=== PATIENT | female | born 1940 | race Caucasian/White ===

== ENCOUNTER 2017-07-16 11:39 | Inpatient (IN) | payer MEDICARE, BC ==
[2017-07-16] VITALS (7 sets, daily range): BP systolic 176–193; BP diastolic 69–88; PULSE 61–86; RESP 18–21; TEMP 101; Ht 154.9 cm; Wt 69.2 kg
[~2017-07-16] VITALS: Ht 154.9 cm; Wt 69.2 kg
[2017-07-16] MEDS ORDERED: ACETAMINOPHEN 650 MG SUPP PR ONE (12:00)
[2017-07-16 12:23] LABS: BASOPHILS % 0.2 % (0.0-2.0); HEMATOCRIT 37.3 % (37.0-47.0); HEMOGLOBIN 12.5 g/dl (12.0-16.0); LYMPHOCYTES # 0.9 10^3/ul (0.8-2.9); LYMPHOCYTES % 9.6 % (15.0-51.0); MEAN CORPUSCULAR HEMOGLOBIN 30.8 pg (29.0-33.0); MEAN CORPUSCULAR HGB CONC 33.5 g/dl (32.0-37.0); MEAN CORPUSCULAR VOLUME 91.9 fl (82.0-101.0); MEAN PLATELET VOLUME 11.3 fl (7.4-10.4); MONOCYTE # 0.2 10^3/ul (0.3-0.9); MONOCYTES % 2.3 % (0.0-11.0); NEUTROPHIL # 8.3 10^3/ul (1.6-7.5); NEUTROPHILS % 87.5 % (39.0-77.0); PLATELET COUNT 218 10^3/UL (140-415); RED BLOOD COUNT 4.06 10^6/ul (4.20-5.40); RED CELL DISTRIBUTION WIDTH 12.6 % (11.5-14.5); WHITE BLOOD COUNT 9.5 10^3/ul (4.8-10.8)
[2017-07-16] MEDS ORDERED: SODIUM CHLORIDE 0.9% 1L BAG IV* STA (12:28)
[2017-07-16] MEDS ORDERED: ACETAMINOPHEN 325 MG TAB PO STA (12:28)
--- NOTE | 2017-07-16 12:33 | RADRPT ---
PROCEDURE: XR Chest. CLINICAL INDICATION: Chest pain, sepsis TECHNIQUE: A frontal view of the chest was performed. COMPARISON: None FINDINGS: The cardiomediastinal silhouette is within normal limits. Remote CABG changes are present with mild vascular congestion. No signs of pleural fluid or pneumothorax are seen. The osseous structures and soft tissues are unremarkable. IMPRESSION: Remote CABG changes and mild vascular congestion. RPTAT: QQ .Lacy Edwards MD, MD Date Time Electronically viewed and signed by .Lacy Edwards MD, on 07/16/2017 12:32 .F/
[2017-07-16 12:42] LABS: ALBUMIN 4.2 g/dl (3.3-4.9); ALBUMIN/GLOBULIN RATIO 1.23; BILIRUBIN,INDIRECT 0.9 mg/dl (0-1.1); BILIRUBIN,TOTAL 0.9 mg/dl (0.2-1.3); CALCIUM 8.8 mg/dl (8.4-10.2); CREATININE 0.96 mg/dl (0.44-1.00); POTASSIUM 4.3 mmol/L (3.5-5.1); TOTAL PROTEIN 7.6 g/dl (6.1-8.1)
[2017-07-16 12:43] LABS: INR 0.99; PROTIME 13.1 Sec (12.2-14.2)
[2017-07-16 12:44] LABS: PARTIAL THROMBOPLASTIN TIME 26.9 Sec (25.0-35.0)
[2017-07-16 12:44] LABS: UR BACTERIA FEW /HPF (NONE SEEN); UR MUCUS FEW /HPF (NONE SEEN); UR RBC 0 /HPF (0-5)
[2017-07-16 12:53] LABS: TROPONIN-I 0.019 ng/ml (0.00-0.12)
[2017-07-16 13:15] LABS: ADD UMIC YES; UR ASCORBIC ACID NEGATIVE (NEGATIVE); UR BILIRUBIN (Dip) NEGATIVE (NEGATIVE); UR BLOOD (Dip) 1+ mg/dL (NEGATIVE); UR CLARITY CLEAR (CLEAR); UR COLOR YELLOW (YELLOW); UR GLUCOSE (Dip) NEGATIVE (NEGATIVE); UR KETONES (Dip) 1+ mg/dL (NEGATIVE); UR LEUKOCYTE ESTERASE (Dip) NEGATIVE Leu/ul (NEGATIVE); UR NITRITE (Dip) NEGATIVE (NEGATIVE); UR SPECIFIC GRAVITY (Dip) 1.018 (1.003-1.030); UR TOTAL PROTEIN (Dip) 1+ mg/dl (NEGATIVE); UR UROBILINOGEN (Dip) NEGATIVE (NEGATIVE)
[2017-07-16] MEDS ORDERED: SOD CHLORIDE 0.9% 1,000 ML IV SCH (14:04)
--- NOTE | 2017-07-16 14:05 | RADRPT ---
PROCEDURE: XR Knee. CLINICAL INDICATION: Left knee pain. TECHNIQUE: AP, lateral and oblique views of the left knee were obtained. The images reviewed on a PACS workstation. COMPARISON: None. FINDINGS: Tricompartment osteoarthritis is seen which is most prominent in the patellofemoral compartment with severe degenerative changes. In addition, moderate degenerative changes in the lateral compartment is also seen. Atherosclerotic vascular disease is seen. A possible suprapatellar joint effusion may be present. No soft tissue swelling is present. IMPRESSION: 1. Tricompartment osteoarthritis of the left knee which is most prominent in the patellofemoral com partment with severe degenerative changes. 2. Possible suprapatellar joint effusion. RPTAT: HPNM Physician July Date Time Electronically viewed and signed by Physician July on 07/16/2017 14:05 /
--- NOTE | 2017-07-16 14:10 | ERA ---
ER Documentation Chief Complaint Date/Time DATE: 07/16/17 TIME: 14:05 Chief Complaint left sided weakness/blurry vision x1 day ROS All systems reviewed and are negative except as per history of present illness. PMhx/Soc History of Surgery: Yes (Aortic Valve Replacement, Cervical Fusions, R Knee Replacement) Anesthesia Reaction: No Hx Cardiac Disorders: Yes (HTN, HLD) Hx Psychiatric Problems: Yes (Alzheimer's) Hx Alcohol Use: No Hx Substance Use: No Hx Tobacco Use: No Smoking Status: Never smoker Physical Exam Vitals Vital Signs Date Time Temp Pulse Resp B/P Pulse Ox O2 Delivery O2 Flow Rate FiO2 07/16/17 13:23 101.0 83 20 150/70 95 Room Air 07/16/17 12:05 0 07/16/17 11:45 102.4 84 25 178/94 95 Physical Exam INITIAL VITAL SIGNS: Reviewed by me GENERAL: The patient is appearing elderly female, to touch HEENT: Dry mucous membranes, pupils equal, round, and reactive to light. EOMI. There is no scleral icterus. NECK: C-spine is soft and supple, there is no meningismus. There is no cervical lymphadenopathy. LUNGS: Clear to auscultation bilaterally. There are no rales, wheezes or rhonchi. HEART: Regular rate and rhythm, no murmurs, clicks, rubs or gallops. ABDOMEN: Soft, non-tender, non-distended. There are bowel sounds in all four quadrants. No rebound or guarding. EXTREMITIES: Tissue swelling of left knee NEUROLOGICAL: The patient moves all four extremities with 5/5 strength. Cranial nerves II - XII are intact. Normal gait. Alert and oriented SKIN: There is no apparent rash or petechiae. HEME/LYMPHATIC: There is no evidence of excessive bruising or lymphedema. PSYCHIATRIC: The patient does not appear anxious or depressed. Result Diagram: 07/16/17 1150 07/16/17 1150 Results 24 hrs Laboratory Tests Test 07/16/17 11:50 07/16/17 11:58 07/16/17 12:02 07/16/17 13:21 White Blood Count 9.510^3/ul Red Blood Count 4.0610^6/ul Hemoglobin 12.5g/dl Hematocrit 37.3% Mean Corpuscular Volume 91.9fl Mean Corpuscular Hemoglobin 30.8pg Mean Corpuscular Hemoglobin Concent 33.5g/dl Red Cell Distribution Width 12.6% Platelet Count 96391^3/UL Mean Platelet Volume 11.3fl Neutrophils % 87.5% Lymphocytes % 9.6% Monocytes % 2.3% Eosinophils % 0.0% Basophils % 0.2% Nucleated Red Blood Cells % 0.0/100WBC Neutrophils # 8.310^3/ul Lymphocytes # 0.910^3/ul Monocytes # 0.210^3/ul Eosinophils # 0.010^3/ul Basophils # 0.010^3/ul Nucleated Red Blood Cells # 0.010^3/ul Prothrombin Time 13.1Sec Prothrombin Time Ratio 1.0 INR International Normalized Ratio 0.99 Activated Partial Thromboplast Time 26.9Sec Sodium Level 136mmol/L Potassium Level 4.3mmol/L Chloride Level 103mmol/L Carbon Dioxide Level 24mmol/L Anion Gap 13 Blood Urea Nitrogen 16mg/dl Creatinine 0.96mg/dl Glucose Level 138mg/dl Calcium Level 8.8mg/dl Total Bilirubin 0.9mg/dl Direct Bilirubin 0.00mg/dl Indirect Bilirubin 0.9mg/dl Aspartate Amino Transf (AST/SGOT) 25IU/L Alanine Aminotransferase (ALT/SGPT) 24IU/L Alkaline Phosphatase 95IU/L Troponin I 0.019ng/ml Total Protein 7.6g/dl Albumin 4.2g/dl Globulin 3.40g/dl Albumin/Globulin Ratio 1.23 Urine Color YELLOW Urine Clarity CLEAR Urine pH 5.0 Urine Specific [place] 1.018 Urine Ketones 1+mg/dL Urine Nitrite NEGATIVEmg/dL Urine Bilirubin NEGATIVEmg/dL Urine Urobilinogen NEGATIVEmg/dL Urine Leukocyte Esterase NEGATIVELeu/ul Urine Microscopic RBC 0/HPF Urine Microscopic WBC 0/HPF Urine Bacteria FEW/HPF Urine Mucus FEW/HPF Urine Hemoglobin 1+mg/dL Urine Glucose NEGATIVEmg/dL Urine Total Protein 1+mg/dl Lactic Acid Level 1.4mmol/L C-Reactive Protein < 0.5mg/dl Current Medications Medications (Trade) Dose Ordered Sig/Luciano Route PRN Reason Start Time Stop Time Status Last Admin Dose Admin Acetaminophen (Tylenol Supp) 650 mg ONCE ONCE LA 07/16/17 12:00 07/16/17 12:29 DC Sodium Chloride (NS) 2,000 ml BOLUS OVER 2 HOURS STAT IV* 07/16/17 12:28 07/16/17 12:29 DC 07/16/17 12:38 Acetaminophen (Tylenol Tab) 650 mg ONCE STAT PO 07/16/17 12:28 07/16/17 12:29 DC 07/16/17 12:31 Procedures/MDM EKG: Rate/Rhythm: [Normal Sinus Rhythm] QRS, ST, T-waves: [No changes consistent w/ acute ischemia] Impression: [No evidence of ischemia or arrhythmia] Chest X-ray 1V Interpreted by me: Soft Tissue: No acute abnormalities Bones: No acute abnormalities Mediastinum/Cardiac Silhouette/Lungs: [No acute abnormalities] CT brain without: Pending at this time This is a 76-year-old female who presents to the emergency room for evaluation of generalized weakness and blurred vision and fever. This patient had no focal neurological deficits on my examination, she was febrile however she was not tachycardic. I did start a septic workup on this patient. Her workup has come back negative. Her CRP and ESR are also negative. I did obtain imaging of the left knee because she has some soft tissue swelling and there does not appear to be any underlying osteomyelitis. There is no effusion around the knee which needs to be drained at this time. The patient was given greater than 30 cc/kg of IV normal saline. She is feeling better however continues to complain of weakness. Given her age and presenting symptoms this patient will be placed in for gentle hydration, and reevaluation in the morning. She will be admitted to her panel physician Dr. parrish. The patient has a negative influenza at this time Departure Diagnosis: Primary Impression: Generalized weakness Additional Impression: Fever Condition: Stable KARLA CHRISTIE DO Jul 16, 2017 14:10
[2017-07-16] MEDS ORDERED: ONDANSETRON 4 MG INJ IV PRN (14:30)
[2017-07-16] MEDS ORDERED: ACETAMINOPHEN 325 MG TAB PO PRN (14:30)
--- NOTE | 2017-07-16 14:53 | RADRPT ---
PROCEDURE: CT brain without contrast CLINICAL INDICATION: Weakness TECHNIQUE: CT of the brain without contrast performed on a multidetector CT scanner, with multiplan ar reformats. One or more of the following dose reduction techniques were used: Automated exposure control, adjustment in mA and / or kV according to patient size, use of iterative reconstructive mushtaq hnique. CTDIvol = 44 mGy; DLP = 630 mGy-cm. COMPARISON: None available FINDINGS: No acute intracranial hemorrhage is identified. No extra-axial fluid collection is seen. There is no mass effect. No midline shift is identified. The ventricles and sulci are mild - moderately enlarged compatible with volume loss. There are mild to moderate areas of hypodensity in the periventricular - deep white matter which are nonspecific but suggestive of chronic small vessel ischemic changes. Ng-white differentiation ap pears preserved. Atherosclerotic calcifications of the intracranial internal carotid arteries are noted. Calvarium and skull base are intact. Mastoid air cells and imaged paranasal sinuses grossly clear. IMPRESSION: 1. No evidence of acute intracranial pathology. 2. Mild - moderate volume loss and chronic small vessel ischemic changes. RPTAT: VV .Tra Camp MD, MD Date Time Electronically viewed and signed by .Tar Camp MD, MD on 07/16/2017 14:52 .O/
[2017-07-16] MEDS ORDERED: ESCI10TA PO (16:04)
[2017-07-16] MEDS ORDERED: DONE10TA7 PO (16:04)
[2017-07-16] MEDS ORDERED: PITA2TAB PO (16:05)
[2017-07-16] MEDS ORDERED: METO-448 PO (16:05)
--- NOTE | 2017-07-16 16:11 | HP ---
Date/Time of Note Date/Time of Note DATE: 07/16/17 TIME: 16:08 Assessment/Plan VTE Prophylaxis VTE Prophylaxis Intervention: SCD's Assessment/Plan Assessment/Plan 76 yo F with pmhx dementia, HTN, HL, depression here with fever and rigors concerning for possible infectious source, though none has yet been elucidated given combination of headache, AMS and fever, cannot exclude prospect of bacterial meningitis start empiric abx with ceftriaxone, vanc, ampicillin given age and dex. LP ordered cont home meds full RVP ordered for non flu respiratory infections if above nondiagnostic consider further w/u HPI/ROS Admit Date/Time Admit Date/Time Jul 16, 2017 at 14:04 Hx of Present Illness CC weakness, fatigue HPI (of note, pt sleeping very soundly at time of my clinical evaluation thus she was unable to participate in clinical interview. unable to obtain pmhx, pshx, soc hx, fam hx, ROS, allergies from patient) 76 yo F with pmhx HTN, HL, depression, dementia brought in for weakness, fatigue. Found to be febrile in the ER. No localization of symptomatology per ER documentation One of pt's caregiver presented this afternoon and was able to provide additional info. Pt at baseline is alert, able to walk and stand unassisted. Yesterday had a headache. She was taken to [facility], had CT and urine and blood tests done. Pt and caregiver told all of these were normal and patient was sent home. Today pt was noted to be confused, diffusely weak and fatigued which is why family brought her in. No focal weakness. +L knee swelling. Pt denies headache at this time. Home meds: metoprolol, Livalo, Donepezil, Lexapro PMH/Family/Social Social History Smoking Status: Never smoker Exam/Review of Systems Vital Signs Vitals Vital Signs Date Time Temp Pulse Resp B/P Pulse Ox O2 Delivery O2 Flow Rate FiO2 07/16/17 13:23 101.0 83 20 150/70 95 Room Air 07/16/17 12:05 0 Exam Exam nad, laying flat and snoring intermittently. awakens to loud verbal stimuli. denies headache. able to touch chin to chest. +intermittent rigors no gross thyromegaly lungs clear abd soft, ntnd mild L knee fullness, no erythema no suprapubic discomfort to palpation no rashes no edema labs reviewed. WBCs nl, Cr nl, lactate nl, flu swab neg, urine without LE or nitrites, CT head nl, L knee XR with possible joint effusion Labs Result Diagram: 07/16/17 1150 07/16/17 1150 Medications Medications Current Medications Sodium Chloride (NS) 1,000 ml @ 80 mls/hr [id number] IV ; Start 07/16/17 at 14:04 ; Stop 07/17/17 at 02:33 Donepezil HCl (Aricept) 10 mg DAILY PO ; Start 07/17/17 at 09:00; Status UNV Escitalopram Oxalate (Lexapro) 10 mg DAILY PO ; Start 07/17/17 at 09:00; Status UNV Metoprolol Tartrate (Lopressor) 25 mg BID PO ; Start 07/16/17 at 21:00; Status UNV Miscellaneous Information 2 mg DAILY PO ; Start 07/17/17 at 09:00; Status GAYE PUCKETT MD Jul 16, 2017 16:11 Medications Medications Current Medications Sodium Chloride (NS) 1,000 ml @ 80 mls/hr [id number] IV ; Start 07/16/17 at 14:04 ; Stop 07/17/17 at 02:33 Donepezil HCl (Aricept) 10 mg DAILY PO ; Start 07/17/17 at 09:00; Status UNV Escitalopram Oxalate (Lexapro) 10 mg DAILY PO ; Start 07/17/17 at 09:00; Status UNV Metoprolol Tartrate (Lopressor) 25 mg BID PO ; Start 07/16/17 at 21:00; Status UNV Miscellaneous Information 2 mg DAILY PO ; Start 07/17/17 at 09:00; Status GAYE PUCKETT MD Jul 16, 2017 16:11
[2017-07-16] MEDS ORDERED: HYDROCODONE/APAP (5/325) TAB PO PRN (16:30)
[2017-07-16] MEDS ORDERED: NACL 0.9% 3 ML SYG IV SCH (16:30)
[2017-07-16] MEDS ORDERED: VANCOMYCIN IV PER PHARMACY XX SCH (17:00)
[2017-07-16] MEDS ORDERED: CEFTRIAXONE 2 GM/50 ML (PMX) 50 ML IVPB SCH ×2 (18:00→20:00)
[2017-07-16] MEDS ORDERED: DEXAMETHASONE 4 MG/ML 5 ML INJ IV SCH (18:00)
[2017-07-16] MEDS ORDERED: VANCOMYCIN 1.5 GM in SOD CHLORIDE 0.9% 250 ML IVPB SCH (20:30)
[2017-07-16] MEDS: AMPICILLIN 2 GM/NS (PMX) 100 ML IVPB SCH (21:19)
[2017-07-16] MEDS: ATORVASTATIN 10 MG TAB PO SCH (21:19)
[2017-07-16] MEDS: METOPROLOL 25 MG TAB PO SCH (21:19)
[2017-07-16] MEDS: ACETAMINOPHEN 325 MG TAB PO PRN (21:37)
[2017-07-16] MEDS: CEFTRIAXONE 2 GM/50 ML (PMX) 50 ML IVPB SCH (22:38)
[2017-07-17] VITALS (15 sets, daily range): BP systolic 124–189; BP diastolic 48–85; PULSE 48–71; RESP 16–20
[2017-07-17] MEDS: AMPICILLIN 2 GM/NS (PMX) 100 ML IVPB SCH ×4 (03:00→17:55)
[2017-07-17] MEDS: ACETAMINOPHEN 325 MG TAB PO PRN ×2 (05:44→10:27)
[2017-07-17 06:13] LABS: BASOPHILS % 0.2 % (0.0-2.0); EOSINOPHILS % 0.1 % (0.0-7.0); HEMATOCRIT 32.1 % (37.0-47.0); HEMOGLOBIN 10.6 g/dl (12.0-16.0); LYMPHOCYTES # 1.6 10^3/ul (0.8-2.9); LYMPHOCYTES % 16.4 % (15.0-51.0); MEAN CORPUSCULAR HEMOGLOBIN 30.1 pg (29.0-33.0); MEAN CORPUSCULAR VOLUME 91.2 fl (82.0-101.0); MEAN PLATELET VOLUME 11.3 fl (7.4-10.4); MONOCYTE # 0.8 10^3/ul (0.3-0.9); MONOCYTES % 8.2 % (0.0-11.0); NEUTROPHIL # 7.4 10^3/ul (1.6-7.5); NEUTROPHILS % 74.8 % (39.0-77.0); PLATELET COUNT 169 10^3/UL (140-415); RED BLOOD COUNT 3.52 10^6/ul (4.20-5.40); RED CELL DISTRIBUTION WIDTH 12.8 % (11.5-14.5); WHITE BLOOD COUNT 9.8 10^3/ul (4.8-10.8)
[2017-07-17 07:11] LABS: CALCIUM 7.5 mg/dl (8.4-10.2); CREATININE 0.81 mg/dl (0.44-1.00); POTASSIUM 3.6 mmol/L (3.5-5.1)
[2017-07-17] MEDS ORDERED: ENOXAPARIN 40 MG/0.4 ML SYG SC SCH (09:00)
[2017-07-17] MEDS: METOPROLOL 25 MG TAB PO SCH ×3 (09:00→21:01)
[2017-07-17] MEDS: ESCITALOPRAM 10 MG TAB PO SCH (09:21)
[2017-07-17] MEDS: DONEPEZIL 10 MG TAB PO SCH (09:21)
[2017-07-17] MEDS: hydrALAzine 20 MG INJ IV PRN (09:21)
[2017-07-17] MEDS: CEFTRIAXONE 2 GM/50 ML (PMX) 50 ML IVPB SCH ×2 (09:22→20:54)
--- NOTE | 2017-07-17 16:37 | PN ---
Date/Time of Note Date/Time of Note DATE: 07/17/17 TIME: 16:35 Assessment/Plan VTE Prophylaxis VTE Prophylaxis Intervention: SCD's Lines/Catheters IV Catheter Type (from Nrsg): Peripheral IV Urinary Cath still in place: No Assessment/Plan Assessment/Plan Assessment/Plan 76 yo F with pmhx dementia, HTN, HL, depression here with fever and rigors concerning for possible infectious source, though none has yet been elucidated given combination of headache, AMS and fever, cannot exclude prospect of bacterial meningitis -cont empiric abx with ceftriaxone, vanc, ampicillin given age and dex. -LP ordered CT to eval for infectious process in pt's back given hardware hx if negative will do CT AP in AM to start FUO eval cont home meds full RVP ordered for non flu respiratory infections Subjective 24 Hr Interval Summary Free Text/Dictation Pt more awake today than when I saw her yesterday but with delirium evidence by waxing/waning of mental status. Talked to DIAZ (former student of patient) who affirms what caregiver said yesterday that pt able to ambulate and is lucid at baseline Exam/Review of Systems Vital Signs Vitals Vital Signs Date Time Temp Pulse Resp B/P Pulse Ox O2 Delivery O2 Flow Rate FiO2 07/17/17 15:36 100.7 55 18 189/74 94 07/16/17 18:20 Room Air 07/16/17 12:05 0 Intake and Output 07/16/17 07/16/17 07/17/17 15:00 23:00 07:00 Intake Total 600 ml Balance 600 ml Exam laying in bed no mrg lungs clear abd soft no rashes labs reviewed, LP pending. cultures neg so far Results Result Diagram: 07/17/17 0537 07/17/17 0537 Results 24 hrs Laboratory Tests Test 07/17/17 05:37 White Blood Count 9.8 Red Blood Count 3.52 L Hemoglobin 10.6 L Hematocrit 32.1 L Mean Corpuscular Volume 91.2 Mean Corpuscular Hemoglobin 30.1 Mean Corpuscular Hemoglobin Concent 33.0 Red Cell Distribution Width 12.8 Platelet Count 169 # Mean Platelet Volume 11.3 H Neutrophils % 74.8 Lymphocytes % 16.4 Monocytes % 8.2 Eosinophils % 0.1 Basophils % 0.2 Nucleated Red Blood Cells % 0.0 Neutrophils # 7.4 Lymphocytes # 1.6 Monocytes # 0.8 Eosinophils # 0.0 Basophils # 0.0 Nucleated Red Blood Cells # 0.0 Sodium Level 137 Potassium Level 3.6 Chloride Level 109 Carbon Dioxide Level 22 Anion Gap 10 Blood Urea Nitrogen 15 Creatinine 0.81 Glucose Level 97 # Calcium Level 7.5 L Medications Medications Current Medications Donepezil HCl (Aricept) 10 mg DAILY PO Last administered on 07/17/17 09:21; Admin Dose 10 MG; Start 07/17/17 at 09:00 Escitalopram Oxalate (Lexapro) 10 mg DAILY PO Last administered on 07/17/17 09 :21; Admin Dose 10 MG; Start 07/17/17 at 09:00 Metoprolol Tartrate (Lopressor) 25 mg BID PO Last administered on 07/17/17 15: 28; Admin Dose 25 MG; Start 07/16/17 at 21:00 Atorvastatin Calcium (Lipitor) 10 mg DAILY@21 PO Last administered on 21:19; Admin Dose 10 MG; Start 07/16/17 at 21:00 Acetaminophen (Tylenol Tab) 650 mg Q6H PRN PO PAIN LEVEL 1-3 OR FEVER Last administered on 07/17/17 10:27; Admin Dose 650 MG; Start 07/16/17 at 16:30 Acetaminophen/ Hydrocodone Bitart 1 tab 1 tab Q6H PRN PO MODERATE PAIN LEVEL 4- 6 Last administered on 07/16/17 22:39; Admin Dose 1 TAB; Start 07/16/17 at 16: 30 Ampicillin 100 ml @ 100 mls/hr Q6 IVPB Last administered on 07/17/17 14:01; Admin Dose 100 MLS/HR; Start 07/16/17 at 18:30 Ceftriaxone Sodium (Rocephin) 50 ml @ 100 mls/hr Q12H IVPB Last administered on 07/17/17 09:22; Admin Dose 100 MLS/HR; Start 07/16/17 at 20:00 Hydralazine HCl 20 mg 20 mg Q6H PRN IV ELEVATED BLOOD PRESSURE Last administered on 07/17/17 09:21; Admin Dose 20 MG; Start 07/16/17 at 22:00 Vancomycin HCl (Vancocin) 250 ml @ 125 mls/hr Q24H IVPB ; Start 10/6/17 at 23: 00 GAYE REEVES MD Jul 17, 2017 16:37
[2017-07-17] MEDS ORDERED: ACETAMINOPHEN 650 MG SUPP PR PRN (17:30)
[2017-07-17] MEDS ORDERED: VANCOMYCIN 1 GM in NS 250 ML IVPB SCH (20:30)
[2017-07-17] MEDS: ATORVASTATIN 10 MG TAB PO SCH (20:54)
[2017-07-17] MEDS: SOD CHLORIDE 0.9% 1,000 ML IV SCH (20:54)
[2017-07-17] MEDS ORDERED: IOHEXOL 300MG/ML 150 ML BTL ONE (22:03)
[2017-07-17] MEDS ORDERED: SOD CHLORIDE 0.9% 100 ML ONE (22:03)
[2017-07-17] MEDS ORDERED: IOHEXOL 300MG/ML 30 ML BTL ONE (22:41)
[2017-07-17] MEDS: VANCOMYCIN 1 GM in NS 250 ML IVPB SCH (23:39)
[2017-07-18] VITALS (12 sets, daily range): BP systolic 153–209; BP diastolic 59–82; PULSE 40–89; RESP 16–22
[2017-07-18] MEDS: hydrALAzine 20 MG INJ IV PRN (01:13)
[2017-07-18] MEDS: AMPICILLIN 2 GM/NS (PMX) 100 ML IVPB SCH ×5 (01:13→23:57)
[2017-07-18] MEDS: ACETAMINOPHEN 325 MG TAB PO PRN (05:16)
[2017-07-18] MEDS: SOD CHLORIDE 0.9% 1,000 ML IV SCH ×2 (08:28→20:36)
[2017-07-18 08:42] LABS: BASOPHILS % 0.2 % (0.0-2.0); HEMATOCRIT 33.8 % (37.0-47.0); HEMOGLOBIN 11.4 g/dl (12.0-16.0); LYMPHOCYTES # 0.8 10^3/ul (0.8-2.9); LYMPHOCYTES % 6.3 % (15.0-51.0); MEAN CORPUSCULAR HEMOGLOBIN 29.9 pg (29.0-33.0); MEAN CORPUSCULAR HGB CONC 33.7 g/dl (32.0-37.0); MEAN CORPUSCULAR VOLUME 88.7 fl (82.0-101.0); MEAN PLATELET VOLUME 12.2 fl (7.4-10.4); MONOCYTE # 0.7 10^3/ul (0.3-0.9); MONOCYTES % 5.2 % (0.0-11.0); NEUTROPHIL # 11.5 10^3/ul (1.6-7.5); NEUTROPHILS % 87.6 % (39.0-77.0); PLATELET COUNT 193 10^3/UL (140-415); RED BLOOD COUNT 3.81 10^6/ul (4.20-5.40); RED CELL DISTRIBUTION WIDTH 12.9 % (11.5-14.5); WHITE BLOOD COUNT 13.1 10^3/ul (4.8-10.8)
[2017-07-18] MEDS: METOPROLOL 25 MG TAB PO SCH ×2 (08:45→20:35)
[2017-07-18] MEDS: DONEPEZIL 10 MG TAB PO SCH (08:45)
[2017-07-18] MEDS: ESCITALOPRAM 10 MG TAB PO SCH (08:45)
[2017-07-18 08:59] LABS: CALCIUM 7.9 mg/dl (8.4-10.2); CREATININE 0.83 mg/dl (0.44-1.00); POTASSIUM 3.3 mmol/L (3.5-5.1)
[2017-07-18] MEDS ORDERED: INFLUENZA VIRUS VACCINE 0.5 ML SYG IM* ONE (09:00)
[2017-07-18] MEDS: CEFTRIAXONE 2 GM/50 ML (PMX) 50 ML IVPB SCH ×2 (12:13→20:34)
--- NOTE | 2017-07-18 13:46 | RADRPT ---
PROCEDURE: CT Brain without contrast. CLINICAL INDICATION: Altered level of consciousness, evaluate for abscess. TECHNIQUE: A CT of the brain was performed on a GE MC10peed 64-slice CT scanner utilizing axial imaging from the skull base through the vertex with and without IV contrast. 100 cc of Omnipaque-30 0 were given intravenously without complication. Multiplanar reformatted images were made. One or mo re the following dose reduction techniques were utilized: Automated exposure control, adjustment of the mA/ or kV according to patient's size, or use of iterative reconstruction technique. The CTDIvo l is 45, 45, and 45 mGy and the DLP is 2160.7 mGycm. COMPARISON: CT BRAIN 07/16/2017 FINDINGS: There is no intracranial hemorrhage, mass effect, or midline shift. No extra-axial fluid collection is seen. Mild to moderate atrophy is identified with compensatory ventricular and sulcal enlargeme nt. Mild to moderate decreased attenuation is seen in the periventricular and deep white matter, co mpatible with microvascular ischemic disease. The allen white matter differentiation is well preserve d with no acute infarct detected. The postcontrast images show no abnormal parenchymal, leptomening eal, or dural enhancement. The osseous structures and visualized paranasal sinuses are unremarkable. IMPRESSION: 1. No evidence of acute intracranial pathology. 2. Mild to moderate diffuse atrophy. 3. There is mild to moderate microvascular ischemic disease in the periventricular and deep white m atter. RPTAT: HJAH .Vale Hay MD, MD Date Time Electronically viewed and signed by .Vale Hay MD, MD on 07/18/2017 13:45 .H/
--- NOTE | 2017-07-18 13:57 | RADRPT ---
PROCEDURE: CT Cervical Spine without contrast. CLINICAL INDICATION: Neck pain, fever, evaluate for abscess. TECHNIQUE: A CT of the cervical spine was performed on a GE [employer] 64-slice CT scanner uti lizing thin section axial images from the skull base through the thoracic inlet. Sagittal and coron al reformatted images were made. One or more the following dose reduction techniques were utilized: Automated exposure control, adjustment of the mA/ or kV according to patient's size, or use of iter ative reconstruction technique. The CTDIvol is 34.6 mGy and the DLP is 885.8 mGycm. COMPARISON: No prior studies are available for comparison. FINDINGS: There is straightening of the normal lordosis of the cervical spine. Mild anterolisthesis is evident at C7-T1. No acute fractures seen. No erosive changes are seen to suggest osteomyelitis. Moderate d egenerative changes are seen at the C1-2 level with pannus formation and borderline central stenosis with the AP diameter measuring approximately 10 mm. C2-3: The disc is normal in height. A broad-based posterior osteophyte/disc complex together with li gamentum flavum hypertrophy results in moderate central stenosis with the AP diameter of the canal m easuring just over 7 mm. Facet arthropathy and uncovertebral osteophytes results in mild right great er than left foraminal narrowing. C3-4-5-6: The patient is noted to be status post partial corpectomies of C4, C5, and C6 with a large interbody strut graft spanning from the inferior endplate of C3 to the superior endplate of C7. The re is mineralization within the strut graft with probable solid fusion. There is solid interbody fus ion of C3-C6 along the right aspect of the vertebral bodies. There is mild central stenosis at these levels, most pronounced at C4-5 and C5-6. There is moderate central stenosis at C6-7 secondary to a broad-based posterior osteophyte. The AP diameter measures approximately 7 mm. Multilevel foraminal narrowing is seen at this level, moderately severe at C3-4 and C4-5, moderate at C5-6, and moderate - severe at C6-7. There is an anterior fixation plate spanning C3-C7 with anterior fixation screws at C3 and C7. There appear to be focal areas of at least spot welding and probable solid fusion at C 3-4 and C6-7. C7-T1: Mild disc space narrowing. An osteophyte/disc complex is present without central stenosis. Fa cet arthropathy results in mild right foraminal narrowing. The left foramen is adequately patent. IMPRESSION: 1. No evidence of osteomyelitis or gross evidence of a spinal abscess on these noncontrast CT image s. Please note that the cord and epidural spaces are suboptimally evaluated. 2. Status post corpectomy from C4-C6 with anterior fusion from C3-C7 as described in detail above. There does appear to be solid fusion at these levels. 3. There is moderate acquired central canal stenosis at C2-3 and C6-7. 4. Multilevel foraminal stenosis as outlined in detail above. RPTAT: HJAH .Vale Hay MD, Date Time Electronically viewed and signed by .Vale Hay MD, on 07/18/2017 13:56 .H/
--- NOTE | 2017-07-18 14:12 | RADRPT ---
PROCEDURE: CT L-Spine. CLINICAL INDICATION: Low back pain, surgery, evaluate for abscess. TECHNIQUE: A CT of the lumbar spine was performed on a GE 64-slice CT scanner utilizing high-resol ution thin section axial images from the thoracic lumbar junction through the lumbar sacral junction . One or more the following dose reduction techniques were utilized: Automated exposure control, a djustment of the mA/ or kV according to patient's size, or use of iterative reconstruction technique . Sagittal and coronal and multiplanar reformatted images were made. The CTDIvol is 31.8 mGy and th e DLP is 903.6 mGycm. COMPARISON: None. FINDINGS: There is a normal lordosis of the lumbar spine. Mild anterolisthesis of L5 on S1 is evident secondar y to facet arthropathy. No fractures are evident. The paraspinal soft tissues are notable for fatty atrophy of the musculature with no fluid collections are seen. There are small bilateral pleural eff usions. Sludge/small stones are seen within the gallbladder. Vascular calcifications are evident. A small amount of free fluid is seen in the upper pelvis. T12-L1: There is severe disc space narrowing with interbody fusion. Prominent enthesopathy is eviden t. A broad-based calcified disc protrusion is present, though the central canal remains adequately p atent. Mild to moderate right foraminal narrowing is evident. L1-2: Severe disc space narrowing is seen with vacuum disc phenomena and endplate irregularity. Prom inent enthesopathy is seen anteriorly. A broad-based calcified disc protrusion together with facet a rthropathy and ligamentum flavum hypertrophy results in moderate central stenosis with the AP diamet er measuring approximately 8 mm. Moderate bilateral foraminal narrowing is evident. L2-3: Severe disc space narrowing is seen with vacuum disc phenomenon. Prominent enthesopathy is not ed. There is a broad-based partially calcified disc protrusion, which together with facet arthropath y and ligamentum flavum hypertrophy results in moderate central stenosis with the AP and transverse diameter of the canal measuring just below 8 mm. Moderate bilateral foraminal narrowing is seen. L3-4: Severe disc space narrowing is noted along the left lateral disc space are prominent enthesopa thy is noted. A partially calcified disc protrusion together with facet arthropathy and ligamentum f lavum hypertrophy results in mild to moderate central stenosis with the AP and transverse diameter c anal measuring approximately 9 mm. Moderate right and severe left foraminal narrowing is evident. Im pingement of the exiting left L3 nerve root is suspected. L4-5: Severe disc space narrowing is evident with vacuum disc phenomena and endplate sclerosis. Enth esopathy is seen. There is a broad-based posterior osteophyte/disc complex, which together with face t arthropathy and ligamentum flavum hypertrophy results in moderate acquired central canal stenosis with the AP and transverse diameter canal measuring just below 8 mm. Moderately severe bilateral for aminal narrowing is evident, left worse than right. L5-S1: Moderate disc space narrowing and vacuum disc phenomena is seen. Diffuse bulging of the poste rior annulus together with facet arthropathy and ligamentum flavum hypertrophy results in mild to mo derate central stenosis with the AP diameter of the canal measuring just under 9 mm. There is severe bilateral foraminal stenosis with suspected impingement of the exiting L5 nerve roots. IMPRESSION: 1. There is evidence of multilevel severe discogenic disease. Solid interbody fusion is seen at T12 -L1. 2. There is moderate acquired central canal stenosis at L1-2, L2-3 and L4-5. 3. There is mild to moderate central canal stenosis at L3-4 and L5-S1. 4. There is multilevel foraminal stenosis, most pronounced at L3-4 on the left, bilaterally at L4-5 and L5-S1, where impingement of the exiting nerve roots is suspected. 5. There is no gross evidence of osteomyelitis. No soft tissue paraspinal abscess is seen. RPTAT: HJAH .Vale Hay MD, Date Time Electronically viewed and signed by .Vale Hay MD, MD on 07/18/2017 14:11 .H/
--- NOTE | 2017-07-18 14:19 | RADRPT ---
PROCEDURE: CT thoracic spine CLINICAL INDICATION: Back pain, sepsis, evaluate for abscess. TECHNIQUE: A CT of the thoracic spine was performed on a GE [address] scanner utilizing high-res olution axial imaging from the cervical thoracic junction through the thoracolumbar junction. Sagit caren, coronal, and multiplanar reformatted images were made. One or more the following does reduction techniques were utilized: Automated exposure control, adjustment of the mA/ or kV according to pat ient's size, or use of iterative reconstruction technique. The CTDIvol is 28.4 mGy and the DLP is 9 75.0 mGycm. COMPARISON: None. FINDINGS: There is increased kyphosis due primarily to multilevel anterior disc space narrowing. Trace codey listhesis of T4 on T5, T5 on T6, and T 03/1997 is noted. Minimal chronic compression of T4 and T5 i s evident. No acute vertebral body fractures evident. The paraspinal soft tissues are grossly unrem arkable with no evidence of a fluid collection. Small bilateral pleural effusions are identified wit h associated atelectasis. There is an aortic valve. Multilevel degenerative enthesopathy is seen in the anterolateral regions, from T3-4 down to T12-L1. Multilevel mild to severe disc space narrowing is evident and most pronounced from T1-2 to T4-5, T7 -8, and T10-11 through T12-L1. At T10-11, T11-12, and T12-L1, there are largely calcified disc bulges/protrusions, though the centr al canal remains adequately patent at these levels. The central canal is adequately patent at all re maining thoracic levels. There is evidence of multilevel moderate foraminal narrowing from T1-2 down to T3-4. Multilevel mild foraminal narrowing is seen in the mid and lower thoracic levels. IMPRESSION: 1. No evidence of osteomyelitis or paraspinal fluid collection on this noncontrast study. There is, however, evidence of small bilateral pleural effusions. 2. Multilevel discogenic disease, most pronounced in the upper and lower thoracic regions with prom inent enthesopathy. 3. No evidence of central stenosis at any thoracic level. There is multilevel foraminal narrowing a s outlined above. RPTAT: HJAH .Vale Hay MD, MD Date Time Electronically viewed and signed by .Vale Hay MD, MD on 07/18/2017 14:19 .H/
--- NOTE | 2017-07-18 16:38 | PN ---
Date/Time of Note Date/Time of Note DATE: 07/18/17 TIME: 16:29 Assessment/Plan VTE Prophylaxis VTE Prophylaxis Intervention: SCD's Lines/Catheters IV Catheter Type (from Nrsg): Peripheral IV Urinary Cath still in place: Yes Reason Cath still needed: skin wounds contaminated by urine Assessment/Plan Assessment/Plan 76 yo F with pmhx dementia, HTN, HL, depression here with fever, rigors, acute toxic/metabolic encephalopathy concerning for possible infectious source, though none has yet been elucidated given combination of headache, AMS and fever, cannot exclude prospect of bacterial meningitis -cont empiric abx with ceftriaxone, vanc, ampicillin given age and dex. -LP could not be done CT AP with contrast ordered ID consulted for FUO w/u assistance. consider viral process, possible encephalitis but unable to get CSF as noted above. Given IV acyclovir can be so nephrotoxic, would like to have ID eval before starting it check HIV and CMV, EBV serologies repeat blood cultures check peripheral smear Subjective 24 Hr Interval Summary Free Text/Dictation Pt still febrile though less so and mentation not significantly improved. Pt unable to hold sufficiently still for LP. Exam/Review of Systems Vital Signs Vitals Vital Signs Date Time Temp Pulse Resp B/P Pulse Ox O2 Delivery O2 Flow Rate FiO2 07/18/17 15:45 98.9 56 18 186/72 93 07/16/17 18:20 Room Air 07/16/17 12:05 0 Intake and Output 07/17/17 07/17/17 07/18/17 15:00 23:00 07:00 Intake Total 250 ml 2210 ml 1190 ml Output Total 150 ml 550 ml Balance 250 ml 2060 ml 640 ml Exam sitting up in bed, mumbling no mrg lungs clear abd soft no edema or rashes spinal CT results reviewed Results Result Diagram: 07/18/1771307/18/17713 Results 24 hrs Laboratory Tests Test 07/18/17 07:14 White Blood Count 13.1 #H Red Blood Count 3.81 L Hemoglobin 11.4 L Hematocrit 33.8 L Mean Corpuscular Volume 88.7 Mean Corpuscular Hemoglobin 29.9 Mean Corpuscular Hemoglobin Concent 33.7 Red Cell Distribution Width 12.9 Platelet Count 193 Mean Platelet Volume 12.2 H Neutrophils % 87.6 H Lymphocytes % 6.3 L Monocytes % 5.2 Eosinophils % 0.0 Basophils % 0.2 Nucleated Red Blood Cells % 0.0 Neutrophils # 11.5 H Lymphocytes # 0.8 Monocytes # 0.7 Eosinophils # 0.0 Basophils # 0.0 Nucleated Red Blood Cells # 0.0 Sodium Level 138 Potassium Level 3.3 L Chloride Level 108 Carbon Dioxide Level 20 L Anion Gap 13 Blood Urea Nitrogen 14 Creatinine 0.83 Glucose Level 102 Calcium Level 7.9 L Medications Medications Current Medications Donepezil HCl (Aricept) 10 mg DAILY PO Last administered on 07/18/17 08:45; Admin Dose 10 MG; Start 07/17/17 at 09:00 Escitalopram Oxalate (Lexapro) 10 mg DAILY PO Last administered on 07/18/17 08 :45; Admin Dose 10 MG; Start 07/17/17 at 09:00 Metoprolol Tartrate (Lopressor) 25 mg BID PO Last administered on 07/18/17 08: 45; Admin Dose 25 MG; Start 07/16/17 at 21:00 Atorvastatin Calcium (Lipitor) 10 mg DAILY@21 PO Last administered on 20:54; Admin Dose 10 MG; Start 07/16/17 at 21:00 Acetaminophen (Tylenol Tab) 650 mg Q6H PRN PO PAIN LEVEL 1-3 OR FEVER Last administered on 07/18/17 05:16; Admin Dose 650 MG; Start 07/16/17 at 16:30 Acetaminophen/ Hydrocodone Bitart 1 tab 1 tab Q6H PRN PO MODERATE PAIN LEVEL 4- 6 Last administered on 07/16/17 22:39; Admin Dose 1 TAB; Start 07/16/17 at 16: 30 Ampicillin 100 ml @ 100 mls/hr Q6 IVPB Last administered on 07/18/17 13:16; Admin Dose 100 MLS/HR; Start 07/16/17 at 18:30 Ceftriaxone Sodium (Rocephin) 50 ml @ 100 mls/hr Q12H IVPB Last administered on 07/18/17 12:13; Admin Dose 100 MLS/HR; Start 07/16/17 at 20:00 Hydralazine HCl 20 mg 20 mg Q6H PRN IV ELEVATED BLOOD PRESSURE Last administered on 07/18/17 01:13; Admin Dose 20 MG; Start 07/16/17 at 22:00 Vancomycin HCl (Vancocin) 250 ml @ 125 mls/hr Q24H IVPB Last administered on 07/17/17 23:39; Admin Dose 125 MLS/HR; Start 07/17/17 at 23:00 Acetaminophen 650 mg 650 mg Q6H PRN CO elevated temp Last administered on 17:56; Admin Dose 650 MG; Start 07/17/17 at 17:30 Sodium Chloride (NS) 1,000 ml @ 80 mls/hr [id number] IV Last administered on 07/17 20:54; Admin Dose 80 MLS/HR; Start 07/17/17 at 20:00 GAYE REEVES MD Jul 18, 2017 16:38
--- NOTE | 2017-07-18 16:43 | RADRPT ---
PROCEDURE: Fluoroscopic guided lumbar puncture. CLINICAL INDICATION: fever and headache. TECHNIQUE: Prior to the procedure, informed consent was obtained. Risks including bleeding and in fection were explained to the patient. The patient understood and was willing to proceed. A proced ural pause was performed. The patient's name, date of , and procedure to be performed were sadaf ified. Using local anesthetic, sterile technique, and fluoroscopic guidance, a 22-gauge spinal needle was a ttempted to be advanced into the thecal sac at the L4-5 level. Multiple attempts were made. However , this was unsuccessful due to large osteophytes. The needle was removed. A dressing was applied. The patient tolerated the procedure well. A total of 0.6 minutes of fluoroscopy time was used. 1 image was obtained with image intensifier. COMPARISON: None. FINDINGS: Images demonstrate the needle overlying the L4-5 level. IMPRESSION: Unsuccessful fluoroscopic guided lumbar puncture. RPTAT: QQ .Mikie Davis MD, MD Date Time Electronically viewed and signed by .Mikie Davis MD, on 07/18/2017 16:43 .R/
[2017-07-18] MEDS: ATORVASTATIN 10 MG TAB PO SCH (20:34)
[2017-07-18] MEDS: VANCOMYCIN 1 GM in NS 250 ML IVPB SCH (23:07)
[2017-07-19] VITALS (17 sets, daily range): BP systolic 108–201; BP diastolic 57–87; PULSE 52–154; RESP 16–22
[2017-07-19] MEDS: SOD CHLORIDE 0.9% 1,000 ML IV SCH ×2 (04:30→22:00)
[2017-07-19] MEDS: AMPICILLIN 2 GM/NS (PMX) 100 ML IVPB SCH ×4 (05:42→23:57)
[2017-07-19 07:38] LABS: BASOPHILS % 0.1 % (0.0-2.0); EOSINOPHILS % 0.4 % (0.0-7.0); HEMATOCRIT 30.3 % (37.0-47.0); HEMOGLOBIN 10.4 g/dl (12.0-16.0); LYMPHOCYTES # 0.8 10^3/ul (0.8-2.9); LYMPHOCYTES % 8.6 % (15.0-51.0); MEAN CORPUSCULAR HEMOGLOBIN 30.6 pg (29.0-33.0); MEAN CORPUSCULAR HGB CONC 34.3 g/dl (32.0-37.0); MEAN CORPUSCULAR VOLUME 89.1 fl (82.0-101.0); MEAN PLATELET VOLUME 12.7 fl (7.4-10.4); MONOCYTE # 0.7 10^3/ul (0.3-0.9); MONOCYTES % 7.3 % (0.0-11.0); NEUTROPHIL # 7.9 10^3/ul (1.6-7.5); NEUTROPHILS % 83.1 % (39.0-77.0); PLATELET COUNT 128 10^3/UL (140-415); WHITE BLOOD COUNT 9.5 10^3/ul (4.8-10.8)
[2017-07-19] MEDS: CEFTRIAXONE 2 GM/50 ML (PMX) 50 ML IVPB SCH ×2 (08:01→20:05)
[2017-07-19] MEDS: METOPROLOL 25 MG TAB PO SCH ×2 (08:08→20:33)
[2017-07-19] MEDS: DONEPEZIL 10 MG TAB PO SCH (08:08)
[2017-07-19] MEDS: ESCITALOPRAM 10 MG TAB PO SCH (08:08)
[2017-07-19] MEDS ORDERED: IOHEXOL 300MG/ML 150 ML BTL ONE (11:10)
[2017-07-19] MEDS ORDERED: SOD CHLORIDE 0.9% 100 ML ONE (11:10)
--- NOTE | 2017-07-19 14:25 | PN ---
Date/Time of Note Date/Time of Note DATE: 07/19/17 TIME: 14:18 Assessment/Plan VTE Prophylaxis VTE Prophylaxis Intervention: SCD's Lines/Catheters IV Catheter Type (from Nrsg): Peripheral IV Urinary Cath still in place: Yes Reason Cath still needed: other (indicate) (will dc) Assessment/Plan Assessment/Plan 76 yo F with pmhx dementia, HTN, HL, depression here with fever and rigors concerning for possible infectious source, though none has yet been elucidated. Fever now resolved. Pt with at this time culture negative sepsis which appears to be improving/resolving. given combination of headache, AMS and fever, cannot exclude prospect of bacterial meningitis -cont empiric abx with ceftriaxone, vanc, ampicillin given age -LP ordered but could not be done yesterday 2/2 agitation. Spinal imaging without abscess. CT AP ordered ID consulted for help with abx de escalation [place] serologies ordered per ID request Subjective 24 Hr Interval Summary Free Text/Dictation Fevers appear to have improved. Pt now more awake but is still delirious Exam/Review of Systems Vital Signs Vitals Vital Signs Date Time Temp Pulse Resp B/P Pulse Ox O2 Delivery O2 Flow Rate FiO2 07/19/17 12:08 52 07/19/17 11:15 98.3 18 133/77 93 07/19/17 04:00 Room Air 07/16/17 12:05 0 Intake and Output 07/18/17 07/18/17 07/19/17 15:00 23:00 07:00 Intake Total 600 ml 1570 ml Output Total 400 ml 600 ml Balance 200 ml 970 ml Exam nad, not oriented to time or place. When asked who the president is or what year it is, starts confabulating then states she not know no mrg lungs clear abd soft no rashes cultures remain negative Results Result Diagram: 07/19/17 0728 07/18/17 0714 Results 24 hrs Laboratory Tests Test 07/19/17 07:28 White Blood Count 9.5 # Red Blood Count 3.40 L Hemoglobin 10.4 L Hematocrit 30.3 L Mean Corpuscular Volume 89.1 Mean Corpuscular Hemoglobin 30.6 Mean Corpuscular Hemoglobin Concent 34.3 Red Cell Distribution Width 13.0 Platelet Count 128 #L Mean Platelet Volume 12.7 H Neutrophils % 83.1 H Lymphocytes % 8.6 L Monocytes % 7.3 Eosinophils % 0.4 Basophils % 0.1 Nucleated Red Blood Cells % 0.0 Neutrophils # 7.9 H Lymphocytes # 0.8 Monocytes # 0.7 Eosinophils # 0.0 Basophils # 0.0 Nucleated Red Blood Cells # 0.0 HIV (1&2) Antibody NEGATIVE Medications Medications Current Medications Donepezil HCl (Aricept) 10 mg DAILY PO Last administered on 07/19/17 08:08; Admin Dose 10 MG; Start 07/17/17 at 09:00 Escitalopram Oxalate (Lexapro) 10 mg DAILY PO Last administered on 07/19/17 08 :08; Admin Dose 10 MG; Start 07/17/17 at 09:00 Metoprolol Tartrate (Lopressor) 25 mg BID PO Last administered on 07/19/17 08: 08; Admin Dose 25 MG; Start 07/16/17 at 21:00 Atorvastatin Calcium (Lipitor) 10 mg DAILY@21 PO Last administered on 20:34; Admin Dose 10 MG; Start 07/16/17 at 21:00 Acetaminophen (Tylenol Tab) 650 mg Q6H PRN PO PAIN LEVEL 1-3 OR FEVER Last administered on 07/18/17 05:16; Admin Dose 650 MG; Start 07/16/17 at 16:30 Acetaminophen/ Hydrocodone Bitart 1 tab 1 tab Q6H PRN PO MODERATE PAIN LEVEL 4- 6 Last administered on 07/16/17 22:39; Admin Dose 1 TAB; Start 07/16/17 at 16: 30 Ampicillin 100 ml @ 100 mls/hr Q6 IVPB Last administered on 07/19/17 11:56; Admin Dose 100 MLS/HR; Start 07/16/17 at 18:30 Ceftriaxone Sodium (Rocephin) 50 ml @ 100 mls/hr Q12H IVPB Last administered on 07/19/17 08:01; Admin Dose 100 MLS/HR; Start 07/16/17 at 20:00 Hydralazine HCl 20 mg 20 mg Q6H PRN IV ELEVATED BLOOD PRESSURE Last administered on 07/18/17 01:13; Admin Dose 20 MG; Start 07/16/17 at 22:00 Vancomycin HCl (Vancocin) 250 ml @ 125 mls/hr Q24H IVPB Last administered on 07/18/17 23:07; Admin Dose 125 MLS/HR; Start 07/17/17 at 23:00 Acetaminophen 650 mg 650 mg Q6H PRN AR elevated temp Last administered on 17:56; Admin Dose 650 MG; Start 07/17/17 at 17:30 Sodium Chloride (NS) 1,000 ml @ 80 mls/hr [id number] IV Last administered on 07/19 04:30; Admin Dose 80 MLS/HR; Start 07/17/17 at 20:00 Miscellaneous Information (*Rx Drug Level Order Reminder*) VANCOMYCIN TROUGH AT 2200 ONCE ONCE XX ; Start 07/19/17 at 22:00; Stop 07/19/17 at 22:01 GAYE REEVES MD Jul 19, 2017 14:25
--- NOTE | 2017-07-19 15:26 | RADRPT ---
PROCEDURE: CT abdomen and pelvis with contrast. CLINICAL INDICATION: Fever of unknown origin. TECHNIQUE: CT scan of the abdomen and pelvis without oral contrast was performed and is reconstruc smiona at 2.5 mm contiguous axial intervals from the dome of the diaphragm to the inferior pubic rami.. The patient was scanned with intravenous contrast. Sagittal and coronal reformatted images were o btained from the axial source images. The calculated radiation dose measures 982 mGy centimeters. Th e CTDI measures 19 mGy. Individualized dose optimization technique was used for the performance of this exam. This included 1. Automated exposure control. 2. Adjustment of the mA and / or kV according to the patient's size. 3. Use of iterative reconstructed technique. COMPARISON: None. FINDINGS: There are small bilateral pleural effusions, left greater than right with atelectasis in the depende nt portion of both lower lobes. No alveolar infiltrate or mass is seen. The patient is post aortic v alve replacement. There are coronary artery calcifications. The liver is of normal size, contour and attenuation with no mass or ductal dilatation. There are ga llstones with either pericholecystic fluid or edema in the wall of the gallbladder. No splenic, adre nal or pancreatic abnormalities present. Kidneys enhance symmetrically and are of normal size and contour. No hydronephrosis, calculus or m asses seen. Ureters are of normal course and caliber with no stone. Wong catheter is present in t he urinary bladder. Atrophic postmenopausal uterus and ovaries are normal. There is no aneurysm. No adenopathy is present. No bowel mass or obstruction is present. The appendix is normal. No phlegmon or pneumoperitoneum is visualized. There is a small volume of ascites. No intraperitoneal or retroperitoneal abscess is present. There is rotary dextroscoliosis of the lumbar spine with degenerative disc disease. No fracture is i dentified. There is osteoarthritis of the hip joints. IMPRESSION: No evidence of urolithiasis, obstructive uropathy, diverticulitis or appendicitis. No abscess. Trace ascites. Small bilateral pleural effusions, left greater than right with bibasilar atelectasis. Status post aortic valve replacement. Vascular calcifications. Cholelithiasis. Question pericholecystic fluid versus edematous wall of gallbladder. Consider correl ation with ultrasound. Rotary dextroscoliosis lumbar spine with degenerative disc disease. .Raymond Lee MD, MD Date Time Electronically viewed and signed by .Raymond Lee MD, MD on 07/19/2017 15:26 .A/
--- NOTE | 2017-07-19 15:43 | CONS ---
Date/Time of Note Date/Time of Note DATE: 07/19/17 TIME: 15:42 Assessment/Plan Assessment/Plan Chief Complaint/Hosp Course No acute events overnight. Patient is awake, pleasantly confused. No nausea vomiting diarrhea per report, no fevers T-max 100 T-current 98 pulse 56 respirations 18 blood pressure 133/77 saturation 93% on room air WBC 9.5 H&H 10.4 and 30.3 platelets 128 neutrophils 83.1, no bands BUN 14 creatinine 0.83 Microbiology: Blood and urine cultures negative, influenza swab negative CT of the abdomen and pelvis revealed no evidence of acute abnormalities, no abscess, small bilateral pleural effusions, left greater than the right with bibasilar atelectasis. Status post aortic valve replacement. Cholelithiasis. Question pericholecystic fluid versus edematous wall of the gallbladder. Brain CT revealed no evidence of acute intracranial pathology Antimicrobials: Vancomycin, Rocephin, Ampicillin Physical examination: Well-nourished well-developed fragile elderly woman who is awake in no distress. Head atraumatic normocephalic, sclera nonicteric vehicle mucosa dry. Neck is supple trachea midline. No nuchal rigidity. Chest rise symmetrical breath sounds clear, diminished bases. Heart: S1-S2. Abdomen soft, bowel tones present. Extremities without cyanosis Assessment: 1. Sepsis with fevers and leukocytosis on admission, unclear etiology 2. Acute encephalopathy, rule out meningitis, improving. 3. Coronary artery disease, history of CABG and valve replacement 4. History of cervical fusion, CT spine negative for acute infectious process 5. Alzheimer's dementia Plan: Patient remains stable, LP was not done secondary to patient's noncompliance, she is improving on current antibiotics, so far all her cultures and diagnostics had been negative we will order abdominal ultrasound and 2D echo. Continue current antibiotics, repeat chest x-ray in a.m., send serology for WNV IgM [facility] staff Problems: Consultation Date/Type/Reason Admit Date/Time Jul 18, 2017 at 10:11 Initial Consult Date Type of Consultation: id Exam/Review of Systems Vital Signs Vitals Vital Signs Date Time Temp Pulse Resp B/P Pulse Ox O2 Delivery O2 Flow Rate FiO2 07/19/17 15:00 98.0 56 18 201/87 94 07/19/17 04:00 Room Air 07/16/17 12:05 0 Intake and Output 07/18/17 07/18/17 07/19/17 15:00 23:00 07:00 Intake Total 600 ml 1570 ml Output Total 400 ml 600 ml Balance 200 ml 970 ml Results Result Diagram: 07/19/17 0728 07/18/17 0714 Results 24 hrs Laboratory Tests Test 07/19/17 07:28 White Blood Count 9.5 # Red Blood Count 3.40 L Hemoglobin 10.4 L Hematocrit 30.3 L Mean Corpuscular Volume 89.1 Mean Corpuscular Hemoglobin 30.6 Mean Corpuscular Hemoglobin Concent 34.3 Red Cell Distribution Width 13.0 Platelet Count 128 #L Mean Platelet Volume 12.7 H Neutrophils % 83.1 H Lymphocytes % 8.6 L Monocytes % 7.3 Eosinophils % 0.4 Basophils % 0.1 Nucleated Red Blood Cells % 0.0 Neutrophils # 7.9 H Lymphocytes # 0.8 Monocytes # 0.7 Eosinophils # 0.0 Basophils # 0.0 Nucleated Red Blood Cells # 0.0 HIV (1&2) Antibody NEGATIVE Medications Medications Current Medications Donepezil HCl (Aricept) 10 mg DAILY PO Last administered on 07/19/17 08:08; Admin Dose 10 MG; Start 07/17/17 at 09:00 Escitalopram Oxalate (Lexapro) 10 mg DAILY PO Last administered on 07/19/17 08 :08; Admin Dose 10 MG; Start 07/17/17 at 09:00 Metoprolol Tartrate (Lopressor) 25 mg BID PO Last administered on 07/19/17 08: 08; Admin Dose 25 MG; Start 07/16/17 at 21:00 Atorvastatin Calcium (Lipitor) 10 mg DAILY@21 PO Last administered on 20:34; Admin Dose 10 MG; Start 07/16/17 at 21:00 Acetaminophen (Tylenol Tab) 650 mg Q6H PRN PO PAIN LEVEL 1-3 OR FEVER Last administered on 07/18/17 05:16; Admin Dose 650 MG; Start 07/16/17 at 16:30 Acetaminophen/ Hydrocodone Bitart 1 tab 1 tab Q6H PRN PO MODERATE PAIN LEVEL 4- 6 Last administered on 07/16/17 22:39; Admin Dose 1 TAB; Start 07/16/17 at 16: 30 Ampicillin 100 ml @ 100 mls/hr Q6 IVPB Last administered on 07/19/17 11:56; Admin Dose 100 MLS/HR; Start 07/16/17 at 18:30 Ceftriaxone Sodium (Rocephin) 50 ml @ 100 mls/hr Q12H IVPB Last administered on 07/19/17 08:01; Admin Dose 100 MLS/HR; Start 07/16/17 at 20:00 Hydralazine HCl 20 mg 20 mg Q6H PRN IV ELEVATED BLOOD PRESSURE Last administered on 07/18/17 01:13; Admin Dose 20 MG; Start 07/16/17 at 22:00 Vancomycin HCl (Vancocin) 250 ml @ 125 mls/hr Q24H IVPB Last administered on 07/18/17 23:07; Admin Dose 125 MLS/HR; Start 07/17/17 at 23:00 Acetaminophen 650 mg 650 mg Q6H PRN ID elevated temp Last administered on 17:56; Admin Dose 650 MG; Start 07/17/17 at 17:30 Sodium Chloride (NS) 1,000 ml @ 80 mls/hr [id number] IV Last administered on 07/19 04:30; Admin Dose 80 MLS/HR; Start 07/17/17 at 20:00 Miscellaneous Information (*Rx Drug Level Order Reminder*) VANCOMYCIN TROUGH AT 2200 ONCE ONCE XX ; Start 07/19/17 at 22:00; Stop 07/19/17 at 22:01 Hydralazine HCl (Apresoline) 10 mg ONCE ONCE PO ; Start 07/19/17 at 16:00; Stop 07/19/17 at 16:01 Amlodipine Besylate (Norvasc) 10 mg DAILY PO ; Start 07/19/17 at 16:00 KARIS FORMAN NP Jul 19, 2017 15:43
[2017-07-19] MEDS: hydrALAzine 20 MG INJ IV PRN (15:44)
[2017-07-19] MEDS ORDERED: AMLODIPINE 10 MG TAB PO SCH (16:00)
[2017-07-19] MEDS: ACETAMINOPHEN 325 MG TAB PO PRN (16:19)
[2017-07-19] MEDS ORDERED: METOPROLOL 5 MG INJ IV PRN (16:30)
[2017-07-19] MEDS ORDERED: LORAZEPAM 2 MG INJ IV ONE (17:00)
[2017-07-19] MEDS ORDERED: DIGOXIN 500 MCG INJ IV ONE (17:00)
[2017-07-19] MEDS: DILTIAZEM-D5W 125MG/125ML DRIP 125 ML IV SCH (18:59)
[2017-07-19] MEDS: ATORVASTATIN 10 MG TAB PO SCH (20:32)
[2017-07-19] MEDS: VANCOMYCIN 1 GM in NS 250 ML IVPB SCH (23:26)
[2017-07-20] VITALS (19 sets, daily range): BP systolic 115–182; BP diastolic 45–88; PULSE 48–130; RESP 16–20
[2017-07-20] MEDS: AMPICILLIN 2 GM/NS (PMX) 100 ML IVPB SCH ×2 (05:54→11:35)
[2017-07-20] MEDS: DILTIAZEM-D5W 125MG/125ML DRIP 125 ML IV SCH (06:40)
--- NOTE | 2017-07-20 07:49 | CONS ---
DATE OF ADMISSION: 07/18/2017 DATE OF CONSULTATION: 07/18/2017 TYPE OF CONSULTATION: Infectious Disease. REASON FOR CONSULTATION: Antibiotic management. HISTORY OF PRESENT ILLNESS: Clover Tucker is a 76-year-old female whose chief complaint is weakness and fatigue. Her past problems include: 1. Senile dementia. 2. Hypertension. 3. Hyperlipidemia. 4. Depression. The patient was brought in to the hospital with fever and headaches. She also had altered mental st atus. The patient was started empirically on antibiotic with ceftriaxone, vancomycin and ampicillin . An LP was ordered but so far has not been done because of lack of patient cooperation. The patie nt can walk and stand unassisted. She had a headache yesterday, was taken to [place]. Had a CT sca n, urine and blood tests done, but the caregiver told the emergency room physicians that everything was normal and she was sent home. She was noted to be confused, diffusely weak, fatigued and that i s why she came to the hospital. PAST MEDICAL HISTORY: Operations as outlined. FAMILY HISTORY: Noncontributory. SOCIAL HISTORY: She does not smoke, drink or abuse drugs. ALLERGIES: NONE TO PENICILLIN, SULFA OR FOODS. MEDICATIONS: Per chart review. REVIEW OF SYSTEMS: As per HPI. PHYSICAL EXAMINATION: GENERAL: The patient is a well-developed, well-nourished elderly-appearing female who is awake, in no acute distress. VITAL SIGNS: Stable. She is afebrile. SKIN: Without generalized rash. HEENT: Within normal limits. NECK: Supple. LYMPH NODES: None palpable. CHEST: Decreased breath sounds at the bases. HEART: Without murmur or gallop. ABDOMEN: Soft, nontender, without organosplenomegaly or masses. EXTREMITIES: Without cyanosis, clubbing or edema. RECTAL AND GENITAL: Deferred. NEUROLOGIC: No focal neurological abnormalities. LABORATORY DATA: Shows a white count of 9.5, H and H of 12.5 and 37.3, platelet count 218,000. BUN and creatinine 16/0.96. HOSPITAL COURSE: Blood cultures and urine cultures are negative. Influenza A and B are negative. Patient was begun on vancomycin, ceftriaxone and ampicillin. A lumbar puncture was done, was attemp simona but was unsuccessful today. A chest x-ray showed remote coronary artery bypass grafting and mil d vascular congestion. A knee x-ray showed degenerative changes, possible suprapatellar joint effus ion, thoracic spine CT. No evidence of osteomyelitis or paraspinal fluid collections. Lumbar spine : Multilevel severe discogenic disease followed interbody fusion at T12 and L1, moderate acquired c entral canal stenosis L1-2, L2-3 and L4-5, mild to moderate central canal stenosis at L3-4 and L5-S1 and numerous other problems, but no evidence of osteomyelitis. Cervical spine films also no eviden ce of osteomyelitis. CT of the brain: No evidence of acute intracranial pathology, mild to moderat e diffuse atrophy. Today, her white count is 13.1. Urinalysis is negative for leukocyte esterase a nd nitrites, so she does not have a urinary tract infection. We will continue her on current therap y. I will dictate my findings to the hospitalist. Dictated By: SINGH PORTILLO MD, JD/PROSPER Conf#: [id number] DID#: [id number] CC: Mateus Shetty;*End*
[2017-07-20] MEDS: CEFTRIAXONE 2 GM/50 ML (PMX) 50 ML IVPB SCH ×2 (08:26→20:52)
[2017-07-20] MEDS: ESCITALOPRAM 10 MG TAB PO SCH (08:26)
[2017-07-20] MEDS: METOPROLOL 25 MG TAB PO SCH ×2 (08:27→20:47)
[2017-07-20] MEDS: DONEPEZIL 10 MG TAB PO SCH (08:27)
--- NOTE | 2017-07-20 09:57 | RADRPT ---
PROCEDURE: US Abdomen and Retroperitoneum. CLINICAL INDICATION: Abdominal pain. TECHNIQUE: Multiple real-time longitudinal and transverse images were acquired of the patient's ab domen and retroperitoneum utilizing a curved array transducer. COMPARISON: Scan of the abdomen and pelvis dated 07/19/2017. FINDINGS: The liver is normal in size and normal in echogenicity. The liver has a normal smooth surface. Ther e is no focal hepatic lesion. Color Doppler and pulsed Doppler sonography demonstrate normal antegra de flow in the portal vein. Sludge is present in the gallbladder. No definite gallstones are visualized. There is no gallbladder wall thickening or fluid around the gallbladder. The bile ducts are normal with the common bile duct measuring 0.0 mm in diameter. The spleen is normal in size. There is no focal splenic lesion. The pancreas is partially seen and is unremarkable. There is no free fluid in the abdomen. There are bilateral pleural effusions. The right kidney measures 10.5 cm and the left kidney measures 9.7 cm. There is no renal mass. There is no hydronephrosis or calculus. The abdominal aorta is not dilated. The inferior vena cava is unremarkable. IMPRESSION: 1. Sludge in the gallbladder. No gallstones or evidence of cholecystitis. 2. Bilateral pleural effusions. 3. Otherwise unremarkable ultrasound of the abdomen and retroperitoneum. RPTAT: QQ .Mikie Davis MD, Date Time Electronically viewed and signed by .Mikie Davis MD, on 07/20/2017 09:56 .R/
[2017-07-20 10:00] LABS: BASOPHILS % 0.2 % (0.0-2.0); EOSINOPHILS # 0.1 10^3/ul (0.0-0.5); EOSINOPHILS % 0.9 % (0.0-7.0); HEMATOCRIT 33.1 % (37.0-47.0); HEMOGLOBIN 11.2 g/dl (12.0-16.0); LYMPHOCYTES # 0.7 10^3/ul (0.8-2.9); LYMPHOCYTES % 7.7 % (15.0-51.0); MEAN CORPUSCULAR HEMOGLOBIN 30.7 pg (29.0-33.0); MEAN CORPUSCULAR HGB CONC 33.8 g/dl (32.0-37.0); MEAN CORPUSCULAR VOLUME 90.7 fl (82.0-101.0); MEAN PLATELET VOLUME 11.8 fl (7.4-10.4); MONOCYTE # 0.7 10^3/ul (0.3-0.9); MONOCYTES % 8.1 % (0.0-11.0); NEUTROPHIL # 7.6 10^3/ul (1.6-7.5); NEUTROPHILS % 82.6 % (39.0-77.0); PLATELET COUNT 193 10^3/UL (140-415); RED BLOOD COUNT 3.65 10^6/ul (4.20-5.40); WHITE BLOOD COUNT 9.1 10^3/ul (4.8-10.8)
[2017-07-20 10:19] LABS: CALCIUM 7.7 mg/dl (8.4-10.2); CREATININE 0.67 mg/dl (0.44-1.00); POTASSIUM 3.1 mmol/L (3.5-5.1)
[2017-07-20] MEDS: SOD CHLORIDE 0.9% 1,000 ML IV SCH ×2 (11:08→23:17)
[2017-07-20] MEDS: VANCOMYCIN 750 MG in SOD CHLORIDE 0.9% 150 ML IVPB SCH ×2 (11:32→23:13)
--- NOTE | 2017-07-20 14:00 | PN ---
DATE: 07/20/2017 INFECTIOUS DISEASE PROGRESS NOTE SUBJECTIVE: No acute changes overnight. The patient apparently had atrial fibrillation, was on Car dizem drip and then became bradycardic, and now off. She is lethargic, arousable and in no distress . VITAL SIGNS: Temperature 97.8, pulse 57, respirations 20, blood pressure 121/61, saturation 97 on 3 liters. LABORATORY DATA: WBC 9.1, H and H 11.2 and 33.1, platelets 193, neutrophils 82.6, BUN 12, creatinin e 0.67. MICROBIOLOGY: Blood and urine cultures remain negative. ANTIMICROBIALS: The patient is on: 1. IV vancomycin. 2. Rocephin. 3. Ampicillin. PHYSICAL EXAMINATION: GENERAL: This is a fragile, elderly woman who is in no distress. HEENT: Head atraumatic, normocephalic. Sclerae anicteric. Buccal mucosa dry. NECK: Supple. CHEST: Rise symmetrical. Breath sounds diminished to bases. HEART: S1, S2. ABDOMEN: Soft, bowel tones present. EXTREMITIES: Without cyanosis. ASSESSMENT: 1. Sepsis with fevers, leukocytosis and acute encephalopathy on admission, rule out meningitis vers us others. 2. Atrial fibrillation. 3. History of CABG and valve replacement. 4. History of cervical fusion. 5. Alzheimer's dementia. PLAN: Patient remains clinically stable. She is afebrile. Cultures have been negative. CT of the spine reveals no acute infectious process. We will keep her on vancomycin, Rocephin, discontinue a mpicillin. Consider neurology and cardiology evaluation. Await for 2D echo. Dictated By: KARIS FORMAN PET CARETAKER for SINGH DENIS/PROSPER Conf#: [id number] DID#: [id number] CC: BRIAN WHITLOCK;*EndCC*
--- NOTE | 2017-07-20 15:07 | PN ---
Date/Time of Note Date/Time of Note DATE: 07/20/17 TIME: 15:03 Assessment/Plan VTE Prophylaxis VTE Prophylaxis Intervention: SCD's Lines/Catheters IV Catheter Type (from Nrsg): Peripheral IV Urinary Cath still in place: Yes Reason Cath still needed: urinary retention Assessment/Plan Chief Complaint/Hosp Course Assessment/Plan: 76 yo F with pmhx dementia, HTN, HL, depression here with fever and rigors concerning for possible infectious source, though none has yet been elucidated. Fever now resolved. 1. sepsis- Pt with at this time culture negative sepsis which appears to be improving/resolving, given combination of headache, AMS and fever, cannot exclude prospect of bacterial meningitis. Spinal imaging without abscess. -cont empiric abx with ceftriaxone, vanc, and infectious disease has recommended stopping ampicillin for now -LP ordered but could not be done yesterday 2/ agitation. Monitor CBC and for fevers and follow-up infectious disease recommendations - ID consulted for help with abx de escalation - [place] serologies ordered per ID request 2. A. fib with RVR: Again patient now in sinus bradycardia rhythm. Will get cardiology consult, especially given patient's prior history of aortic valve replacement 4 years ago. -We will also get PT consult Problems: Subjective 24 Hr Interval Summary Free Text/Dictation Patient now amount of A. fib with RVR, presently in sinus bradycardia. Now off diltiazem drip. No acute events overnight. Exam/Review of Systems Vital Signs Vitals Vital Signs Date Time Temp Pulse Resp B/P Pulse Ox O2 Delivery O2 Flow Rate FiO2 07/20/17 12:10 49 07/20/17 08:32 Nasal Cannula 3.0 07/20/17 05:17 97.8 20 121/61 97 Intake and Output 07/19/17 07/19/17 07/20/17 15:00 23:00 07:00 Intake Total 2000 ml 225 ml Output Total 1200 ml 500 ml Balance 800 ml -275 ml Exam nad, not oriented to time or place. When asked who the president is or what year it is, starts confabulating then states she not know no mrg lungs clear abd soft no rashes Results Result Diagram: 07/20/17 0921 07/20/17 0921 Results 24 hrs Laboratory Tests Test 07/19/17 22:09 07/20/17 09:21 Thyroid Stimulating Hormone (TSH) 1.040 Vancomycin Level Trough 7.4 L White Blood Count 9.1 Red Blood Count 3.65 L Hemoglobin 11.2 L Hematocrit 33.1 L Mean Corpuscular Volume 90.7 Mean Corpuscular Hemoglobin 30.7 Mean Corpuscular Hemoglobin Concent 33.8 Red Cell Distribution Width 13.0 Platelet Count 193 # Mean Platelet Volume 11.8 H Neutrophils % 82.6 H Lymphocytes % 7.7 L Monocytes % 8.1 Eosinophils % 0.9 Basophils % 0.2 Nucleated Red Blood Cells % 0.0 Neutrophils # 7.6 H Lymphocytes # 0.7 L Monocytes # 0.7 Eosinophils # 0.1 Basophils # 0.0 Nucleated Red Blood Cells # 0.0 Sodium Level 138 Potassium Level 3.1 L Chloride Level 109 Carbon Dioxide Level 21 Anion Gap 11 Blood Urea Nitrogen 12 Creatinine 0.67 Glucose Level 100 Calcium Level 7.7 L Medications Medications Current Medications Donepezil HCl (Aricept) 10 mg DAILY PO Last administered on 07/20/17 08:27; Admin Dose 10 MG; Start 07/17/17 at 09:00 Escitalopram Oxalate (Lexapro) 10 mg DAILY PO Last administered on 07/20/17 08 :26; Admin Dose 10 MG; Start 07/17/17 at 09:00 Metoprolol Tartrate (Lopressor) 25 mg BID PO Last administered on 07/20/17 08: 27; Admin Dose 25 MG; Start 07/16/17 at 21:00 Atorvastatin Calcium (Lipitor) 10 mg DAILY@21 PO Last administered on 20:32; Admin Dose 10 MG; Start 07/16/17 at 21:00 Acetaminophen (Tylenol Tab) 650 mg Q6H PRN PO PAIN LEVEL 1-3 OR FEVER Last administered on 07/19/17 16:19; Admin Dose 650 MG; Start 07/16/17 at 16:30 Acetaminophen/ Hydrocodone Bitart 1 tab 1 tab Q6H PRN PO MODERATE PAIN LEVEL 4- 6 Last administered on 07/16/17 22:39; Admin Dose 1 TAB; Start 07/16/17 at 16: 30 Ceftriaxone Sodium (Rocephin) 50 ml @ 100 mls/hr Q12H IVPB Last administered on 07/20/17 08:26; Admin Dose 100 MLS/HR; Start 07/16/17 at 20:00 Hydralazine HCl (Apresoline) 20 mg Q6H PRN IV ELEVATED BLOOD PRESSURE Last administered on 07/19/17 15:44; Admin Dose 20 MG; Start 07/16/17 at 22:00 Acetaminophen 650 mg 650 mg Q6H PRN NC elevated temp Last administered on 17:56; Admin Dose 650 MG; Start 07/17/17 at 17:30 Sodium Chloride (NS) 1,000 ml @ 80 mls/hr [id number] IV Last administered on 07/20 11:08; Admin Dose 80 MLS/HR; Start 07/17/17 at 20:00 Metoprolol Tartrate 5 mg 5 mg Q5M PRN IV HR>120 Last administered on 07/19/17 16:26; Admin Dose 5 MG; Start 07/19/17 at 16:30 Diltiazem HCl 125 ml @ 5 mls/hr TITRATE IV Last administered on 07/20/17 06:40 ; Admin Dose 10 MLS/HR; Start 07/19/17 at 17:30 Vancomycin HCl/ Sodium Chloride (Vancocin/NS) 150 ml @ 75 mls/hr Q12H IVPB Last administered on 07/20/17 11:32; Admin Dose 75 MLS/HR; Start 07/20/17 at 11 :00 RUSSEL HOLDER Jul 20, 2017 15:07
--- NOTE | 2017-07-20 16:25 | RADRPT ---
Echocardiogram Report Patient Name: ZACKERY SOSA Gender: Female Date: 1940 Study Date: 20-Jul-2017 Hospice Massage Therapist: Mariah [facility] Location: 5564 Ref. Physician: KARIS FORMAN Quality: Adequate Procedures: Transthoracic echocardiogram with complete 2D, M-Mode, and doppler examination. Indications: r/o vegetation. 2D/M Mode Doppler Measurement Value Normal Ranges Measurement Value Normal Ranges LVIDd 2D 3.8 3.5 - 5.6 cm ZACARIAS Vmax 0.7 cm2 LVIDs 2D 2.6 2.1 - 4.1 cm ZACARIAS VTI 0.9 cm2 FS 2D 31.5 % AV Mean Abhi 2.0 m/sec LVPWd 2D 1.3 0.6 - 1.1 cm AV Mean PG 20.0 mmHg IVSd 2D 1.3 0.6 - 1.1 cm AV Peak Abhi 3.1 m/sec IVS/LVPW 2D 1.0 AV Peak PG 38.0 mmHg AoR Diam 2D 2.7 2.0 - 3.7 cm AV VTI 63.5 cm LA/Ao 2D 1 0 - 1 LVOT Mean Abhi 0.7 m/sec EDV 2D 56.6 cm3 LVOT Mean PG 2.0 mmHg ESV 2D 18.2 cm3 LVOT Peak Abhi 1.1 m/sec LA Dimen 2D 3.8 2.3 - 4.0 cm LVOT Peak PG 5.0 mmHg LVOT Diam 1.6 cm LVOT VTI 27.5 cm LVOT Area 2.0 cm2 MV E Peak Abhi 1.0 m/sec MV A Peak Abhi 0.6 m/sec MV E/A 1.6 MV Decel Time 194 msec MV E/A 1.6 MR Peak PG 75.0 mmHg MR Peak Abhi 4.3 m/sec TR Peak Abhi 3.4 m/sec TR Peak PG 45.0 mmHg RVSP 53.0 mmHg Findings Left Ventricle: Normal left ventricular systolic function. Normal left ventricular cavity size. Mild concentric left ventricular hypertrophy. Ejection fraction is visually estimated at 65 %. Abnormal Diastolic Function. Right Ventricle: Normal right ventricular size. Normal right ventricular systolic function. Left Atrium: There is mild enlargement of left atrium. Right Atrium: There is mild enlargement of right atrium. Mitral Valve: Mild mitral leaflet calcification. Mild mitral annular calcification. Mild mitral valve regurgitation. Aortic Valve: Aortic valve not well visualized. Aortic Valve Bio Prosthesis. Aortic valve Max velocity 3.07 m/sec. Max PG 38.00 mmHg. Mean PG 20.00 mmHg. Tricuspid Valve: Normal appearance of the tricuspid valve. Estimated peak PA systolic pressure 53 mmHg. There is mild tricuspid regurgitation. Pulmonic Valve: Pulmonic valve not well visualized. There is trace pulmonic regurgitation. Pericardium: Normal pericardium with no significant pericardial effusion. Aorta: Normal aortic root. IVC: Normal size with poor respiratory collapse consistent with elevated right atrial pressure. Conclusions 1.Normal left ventricular systolic function. Normal left ventricular cavity size. Mild concentric left ventricular hypertrophy. Ejection fraction is visually estimated at 65 %. Abnormal Diastolic Function. 2.There is mild enlargement of left atrium. 3.Mild mitral leaflet calcification. Mild mitral annular calcification. Mild mitral valve regurgitation. 4.Aortic valve not well visualized. Aortic Valve Bio Prosthesis. Aortic valve Max velocity 3.07 m/sec. Max PG 38.00 mmHg. Mean PG 20.00 mmHg. 5.Normal appearance of the tricuspid valve. Estimated peak PA systolic pressure 53 mmHg. There is mild tricuspid regurgitation. Electronically Signed By: Enrique Pedroza 20-Jul-2017 16:25:34 -0700 Patient Name: ZACKERY SOSA Study Date: 20-Jul-2017 [id number]
[2017-07-20] MEDS ORDERED: VANCOMYCIN 1.25 GM in SOD CHLORIDE 0.9% 250 ML IVPB SCH (17:00)
[2017-07-20] MEDS: hydrALAzine 20 MG INJ IV PRN (17:28)
[2017-07-20] MEDS ORDERED: POTASSIUM CHLORIDE (SR) 20 MEQ TAB PO STA (19:23)
[2017-07-20] MEDS ORDERED: MAGNESIUM SULFATE 2 GM/50 ML 50 ML IVPB ONE (19:30)
--- NOTE | 2017-07-20 20:05 | CONS ---
DATE OF ADMISSION: 07/18/2017 DATE OF CONSULTATION: 07/20/2017 TYPE OF CONSULTATION: Cardiology. REFERRING PHYSICIAN: Dr. Holder. REASON FOR CONSULTATION: Arrhythmia, history of aortic valve replacement. CHIEF COMPLAINT: Encephalopathy. HISTORY OF PRESENT ILLNESS: Thank you for this referral. History is obtained from the patient, fro m discussion with the nurse and caregiver, discussion with the staff and review of the chart, gokul tomlin with the physician. This is a pleasant 76-year-old female who was admitted a few days ago with complaint of confusion, fever, altered level of consciousness and headache. An LP has been attempt ed which has not been successful. She has been started on antibiotic and clinically has improved. However, she has had episodes of atrial fibrillation, rapid ventricular response. She has been plac ed on Cardizem drip. Has converted back to sinus rhythm, sinus bradycardia. At this point denies a ny chest pain or pressure to me. Denies any palpitation to me. She is more awake and alert and in fact oriented x2 to person and place. PAST MEDICAL HISTORY: History of aortic valve disorder, history of aortic valve replacement a few y ears ago, I am not sure if she had bypass surgery done as well or not. History of memory impairment and dementia, history of hypertension. It is unclear if she ever had any history of arrhythmias or not. ALLERGIES: REPORTED TO CODEINE AND CORTICOSTEROID, DETAIL IS NOT CLEAR. MEDICATIONS: Per medical records were personally reviewed. SOCIAL HISTORY: Does not smoke or drink. FAMILY HISTORY: No reported coronary artery disease. REVIEW OF SYSTEMS: As above mentioned. PHYSICAL EXAMINATION: VITAL SIGNS: Temperature 97.8, heart rate of 57, blood pressure 121/61, respiratory rate of 20. HEENT: Normocephalic, atraumatic. Pupils are equal. CARDIOVASCULAR: Regular rate and rhythm, systolic murmur. PULMONARY: Anteriorly with mild rhonchi with no wheezes. GASTROINTESTINAL: Soft, nontender. EXTREMITIES: Positive lower extremity. NEUROLOGIC: Awake, oriented to person and place. PSYCHIATRIC: Appears to be calm and pleasant at this point. LABORATORY: Sodium 138, potassium 3.1, BUN of 12, creatinine 0.67, glucose 100. TSH 1. WBC of 9.1 , hemoglobin 11.2, platelets of 193. Brain CT has shown no evidence of significant intracranial pat hology. EKG shows atrial fibrillation with rapid ventricular response, nonspecific ST-T abnormality . Repeat EKG shows atrial fibrillation which showed normal sinus rhythm with ST-T abnormality sugge stive of LVH and strain pattern. Echocardiogram was done today and was personally reviewed, which s howed ejection fraction of probably about 65% with aortic valve appeared to be a bioprosthetic with mean gradient of 20. PA pressure elevated at 53 mmHg. ASSESSMENT AND PLAN: 1. Sepsis infection, etiology unclear. An LP could not be done unfortunately. Antibiotic as per I D recommendation. 2. Paroxysmal atrial fibrillation with rapid ventricular response, currently back to sinus rhythm. 3. History of hypertension. 4. History of aortic valve replacement with bioprosthetic aortic valve. 5. Memory impairment and dementia. 6. Encephalopathy. 7. Hypertension. 8. Tachybrady. RECOMMENDATIONS: Blood cultures have been so far negative. Antibiotic is managed as per ID recomme ndation. I will start the patient on metoprolol again and follow. Monitor on telemetry closely. P otassium level, electrolytes to be corrected as needed. We will check a magnesium level again with the a.m. labs and adjust it accordingly. Thank you for this referral. We will continue to follow along with you. Dictated By: LEO ARELLANO MD AV/PROSPER Conf#: [id number] DID#: [id number] CC: RUSSEL HOLDER;*End*
[2017-07-20] MEDS: ATORVASTATIN 10 MG TAB PO SCH (20:44)
[2017-07-21] VITALS (13 sets, daily range): BP systolic 136–177; BP diastolic 60–74; PULSE 51–66; RESP 18–20
[2017-07-21] MEDS: CEFTRIAXONE 2 GM/50 ML (PMX) 50 ML IVPB SCH ×2 (08:07→21:14)
[2017-07-21] MEDS: ESCITALOPRAM 10 MG TAB PO SCH (08:11)
[2017-07-21] MEDS: DONEPEZIL 10 MG TAB PO SCH (08:12)
[2017-07-21] MEDS: METOPROLOL 25 MG TAB PO SCH ×2 (08:12→21:14)
[2017-07-21] MEDS: hydrALAzine 20 MG INJ IV PRN (08:12)
[2017-07-21 09:35] LABS: BASOPHILS % 0.3 % (0.0-2.0); EOSINOPHILS # 0.2 10^3/ul (0.0-0.5); EOSINOPHILS % 1.8 % (0.0-7.0); HEMATOCRIT 33.9 % (37.0-47.0); LYMPHOCYTES # 0.7 10^3/ul (0.8-2.9); LYMPHOCYTES % 6.8 % (15.0-51.0); MEAN CORPUSCULAR HEMOGLOBIN 29.5 pg (29.0-33.0); MEAN CORPUSCULAR HGB CONC 32.4 g/dl (32.0-37.0); MEAN CORPUSCULAR VOLUME 90.9 fl (82.0-101.0); MEAN PLATELET VOLUME 12.1 fl (7.4-10.4); MONOCYTE # 0.7 10^3/ul (0.3-0.9); MONOCYTES % 6.5 % (0.0-11.0); NEUTROPHIL # 8.8 10^3/ul (1.6-7.5); NEUTROPHILS % 83.8 % (39.0-77.0); PLATELET COUNT 172 10^3/UL (140-415); RED BLOOD COUNT 3.73 10^6/ul (4.20-5.40); RED CELL DISTRIBUTION WIDTH 13.7 % (11.5-14.5); WHITE BLOOD COUNT 10.5 10^3/ul (4.8-10.8)
[2017-07-21 09:59] LABS: ALBUMIN 2.6 g/dl (3.3-4.9); ALBUMIN/GLOBULIN RATIO 0.83; BILIRUBIN,INDIRECT 0.3 mg/dl (0-1.1); BILIRUBIN,TOTAL 0.3 mg/dl (0.2-1.3); CALCIUM 8.1 mg/dl (8.4-10.2); CREATININE 0.75 mg/dl (0.44-1.00); MAGNESIUM 2.2 mg/dl (1.7-2.5); TOTAL PROTEIN 5.7 g/dl (6.1-8.1)
[2017-07-21 10:02] LABS: POTASSIUM 2.9 mmol/L (3.5-5.1)
[2017-07-21] MEDS: POTASSIUM CHLORIDE 250 ML IVPB SCH ×2 (11:51→16:00)
[2017-07-21] MEDS: SOD CHLORIDE 0.9% 1,000 ML IV SCH (11:52)
--- NOTE | 2017-07-21 12:33 | PN ---
Date/Time of Note Date/Time of Note DATE: 07/21/17 TIME: 12:31 Assessment/Plan VTE Prophylaxis VTE Prophylaxis Intervention: SCD's Lines/Catheters IV Catheter Type (from Nrs): Saline Lock Urinary Cath still in place: Yes Reason Cath still needed: urinary retention Assessment/Plan Chief Complaint/Hosp Course Assessment/Plan: 76 yo F with pmhx dementia, HTN, HL, depression here with fever and rigors concerning for possible infectious source, though none has yet been elucidated. Fever now resolved. 1. sepsis- Pt with at this time culture negative sepsis which appears to be improving/resolving, given combination of headache, AMS and fever, cannot exclude prospect of bacterial meningitis. Spinal imaging without abscess. -cont empiric abx with ceftriaxone, vanc, and infectious disease has recommended stopping ampicillin for now -LP ordered but could not be done 2 days ago 2 agitation. Monitor CBC and for fevers and follow-up infectious disease recommendations - ID consulted for help with abx de escalation - [place] serologies ordered per ID [id number] final results 2. A. fib with RVR: Again patient now in sinus bradycardia rhythm. Appreciate cardiology consult, especially given patient's prior history of aortic valve replacement 4 years ago. -Continue beta-derek for now -Follow-up speech therapy and PT consults as well. 3. Early dementia: Per nursing staff and caregiver, patient's mental status appears to be more altered than normal, could be secondary to sepsis and prior A. fib with RVR, again patient appears slightly more alert today. Head CT done on July 16 was negative for any acute pathologies. -We will get neurology consult for further evaluation, patient may benefit from MRI Problems: Subjective 24 Hr Interval Summary Free Text/Dictation Patient a bit more alert today. Seen by cardiology team yesterday. Has remained in sinus rhythm, sinus bradycardia since yesterday. Exam/Review of Systems Vital Signs Vitals Vital Signs Date Time Temp Pulse Resp B/P Pulse Ox O2 Delivery O2 Flow Rate FiO2 07/21/17 11:58 98.7 72 18 139/60 98 07/21/17 08:00 Nasal Cannula 3.0 Intake and Output 07/20/17 07/20/17 07/21/17 15:00 23:00 07:00 Intake Total 920 ml Output Total 650 ml Balance 270 ml Exam nad, not oriented to time or place no mrg lungs clear abd soft no rashes Results Result Diagram: 07/21/17 0848 07/21/17 0848 Results 24 hrs Laboratory Tests Test 07/21/17 07:31 07/21/17 08:48 Lab Scanned Report REFERENCE LAB White Blood Count 10.5 Red Blood Count 3.73 L Hemoglobin 11.0 L Hematocrit 33.9 L Mean Corpuscular Volume 90.9 Mean Corpuscular Hemoglobin 29.5 Mean Corpuscular Hemoglobin Concent 32.4 Red Cell Distribution Width 13.7 Platelet Count 172 Mean Platelet Volume 12.1 H Neutrophils % 83.8 H Lymphocytes % 6.8 L Monocytes % 6.5 Eosinophils % 1.8 Basophils % 0.3 Nucleated Red Blood Cells % 0.0 Neutrophils # 8.8 H Lymphocytes # 0.7 L Monocytes # 0.7 Eosinophils # 0.2 Basophils # 0.0 Nucleated Red Blood Cells # 0.0 Sodium Level 138 Potassium Level 2.9 *L Chloride Level 109 Carbon Dioxide Level 23 Anion Gap 9 Blood Urea Nitrogen 13 Creatinine 0.75 Glucose Level 97 Calcium Level 8.1 L Magnesium Level 2.2 Total Bilirubin 0.3 Direct Bilirubin 0.00 Indirect Bilirubin 0.3 Aspartate Amino Transf (AST/SGOT) 22 Alanine Aminotransferase (ALT/SGPT) 33 Alkaline Phosphatase 71 Total Protein 5.7 L Albumin 2.6 L Globulin 3.10 Albumin/Globulin Ratio 0.83 Medications Medications Current Medications Donepezil HCl (Aricept) 10 mg DAILY PO Last administered on 07/21/17 08:12; Admin Dose 10 MG; Start 07/17/17 at 09:00 Escitalopram Oxalate (Lexapro) 10 mg DAILY PO Last administered on 07/21/17 08:11; Admin Dose 10 MG; Start 07/17/17 at 09:00 Metoprolol Tartrate (Lopressor) 25 mg BID PO Last administered on 07/21/17 08 :12; Admin Dose 25 MG; Start 07/16/17 at 21:00 Atorvastatin Calcium (Lipitor) 10 mg DAILY@21 PO Last administered on 20:44; Admin Dose 10 MG; Start 07/16/17 at 21:00 Acetaminophen (Tylenol Tab) 650 mg Q6H PRN PO PAIN LEVEL 1-3 OR FEVER Last administered on 07/19/17 16:19; Admin Dose 650 MG; Start 07/16/17 at 16:30 Acetaminophen/ Hydrocodone Bitart 1 tab 1 tab Q6H PRN PO MODERATE PAIN LEVEL 4- 6 Last administered on 07/16/17 22:39; Admin Dose 1 TAB; Start 07/16/17 at 16: 30 Ceftriaxone Sodium (Rocephin) 50 ml @ 100 mls/hr Q12H IVPB Last administered on 07/21/17 08:07; Admin Dose 100 MLS/HR; Start 07/16/17 at 20:00 Hydralazine HCl (Apresoline) 20 mg Q6H PRN IV ELEVATED BLOOD PRESSURE Last administered on 07/21/17 08:12; Admin Dose 20 MG; Start 07/16/17 at 22:00 Acetaminophen 650 mg 650 mg Q6H PRN NC elevated temp Last administered on 17:56; Admin Dose 650 MG; Start 07/17/17 at 17:30 Sodium Chloride (NS) 1,000 ml @ 80 mls/hr [id number] IV Last administered on 11:52; Admin Dose 80 MLS/HR; Start 07/17/17 at 20:00 Metoprolol Tartrate 5 mg 5 mg Q5M PRN IV HR>120 Last administered on 07/19/17 16:26; Admin Dose 5 MG; Start 07/19/17 at 16:30 Diltiazem HCl 125 ml @ 5 mls/hr TITRATE IV Last administered on 07/20/17 06:40 ; Admin Dose 10 MLS/HR; Start 07/19/17 at 17:30 Vancomycin HCl/ Sodium Chloride (Vancocin/NS) 150 ml @ 75 mls/hr Q12H IVPB Last administered on 07/20/17 23:13; Admin Dose 75 MLS/HR; Start 07/20/17 at 11 :00 Influenza Virus Vaccine 0.5 ml 0.5 ml ONCE ONCE IM* ; Start 07/22/17 at 12:00; Stop 07/22/17 at 12:01 Potassium Chloride (KCl 40 MEQ/250 ML NS) 250 ml @ 62.5 mls/hr Q4H IVPB Last administered on 07/21/17 11:51; Admin Dose 62.5 MLS/HR; Start 07/21/17 at 12: 00; Stop 07/21/17 at 19:59 RUSESL HOLDER Jul 21, 2017 12:33
[2017-07-21 13:42] LABS: CYTOMEGALOVIRUS ANTIBODY (IGG) <0.60 U/mL; CYTOMEGALOVIRUS ANTIBODY (IGM) <30.00 AU/mL
[2017-07-21] MEDS: VANCOMYCIN 750 MG in SOD CHLORIDE 0.9% 150 ML IVPB SCH (15:58)
--- NOTE | 2017-07-21 16:42 | PN ---
DATE: 07/21/2017 SUBJECTIVE: No acute changes. The patient remains lethargic, in no distress. VITAL SIGNS: Afebrile. Temperature 98.7, pulse 72, respirations 18, blood pressure 139/60, saturation 98 on nasal cannula. WBC 10.5, platelets 172, neutrophils 83.8. BUN 13, creatinine 0.75. MICROBIOLOGY: Blood and urine cultures have been negative. ANTIMICROBIALS: The patient is on vancomycin and ceftriaxone. PHYSICAL EXAMINATION: GENERAL: This is a chronically ill-appearing, elderly woman who is in no distress. HEENT: Head atraumatic, normocephalic. Sclerae anicteric. Buccal mucosa dry. NECK: Supple. CHEST: Rise symmetrical. Breath sounds diminished to bases. HEART: S1, S2. ABDOMEN: Soft. Bowel tones present. EXTREMITIES: Without cyanosis. ASSESSMENT: 1. Acute encephalopathy of unclear etiology, possibly toxic metabolic, rule out meningitis. The patient is on broad spectrum antibiotics. 2. History of coronary artery bypass graft. 3. History of valve replacement. 4. History of cervical fusion and Alzheimer dementia. 5. Anemia. PLAN: The patient remains hemodynamically stable. LP was attempted twice; however, patient was too agitated to complete. Again, she is on broad spectrum antibiotics. Cultures have been negative. A 2D echo revealed no vegetations. West Nile virus serology was sent on 07/19/2017 and still pending. The patient is being seen by cardiology. CT brain was negative for acute abnormalities. She may require MRI of the brain and neurology evaluation. Dictated By: AKRIS FORMAN VOLUNTEER MANAGER for [employer]ING[employer] DENIS/PROSPER Conf#: [id number] DID#: [id number] PASTORA
--- NOTE | 2017-07-21 18:54 | CONS ---
Date/Time of Note Date/Time of Note DATE: 07/21/17 TIME: 18:51 Consult Date/Type/Reason Admit Date/Time Jul 18, 2017 at 10:11 Initial Consult Date Type of Consultation: cariology Subjective card f/u note: S: Discussed with the staff and rhythm strip was reviewed. Patient remains in normal sinus rhythm. No atrial fibrillation noted. Patient is still with poor appetite and is refusing to eat. No reports of chest pain or pressure or palpitation. o: General: no acute distress HEENT: NC/AT. pupils are equal. round. NECK: NO JVD. no stridor. CV: RRR. systolic murmur; no gallop or rubs. PULM: no wheezing or rhonchi. GI: SOFT, NT, ND, no rebound or guarding Extremity: trace B/L LE edema. no clubbing. neuro: awake and alert, OX1 at least . Psych: calm but depressed mood rectal: deferred : normal Objective Vital Signs Date Time Temp Pulse Resp B/P Pulse Ox O2 Delivery O2 Flow Rate FiO2 07/21/17 16:12 65 07/21/17 15:30 98.0 18 142/64 97 07/21/17 08:00 Nasal Cannula 3.0 Intake and Output 07/20/17 07/20/17 07/21/17 15:00 23:00 07:00 Intake Total 920 ml Output Total 650 ml Balance 270 ml Results/Medications Result Diagram: 07/21/17 0848 07/21/17 0848 Results 24 hrs Laboratory Tests Test 07/21/17 07:31 07/21/17 08:48 Lab Scanned Report REFERENCE LAB White Blood Count 10.5 Red Blood Count 3.73 L Hemoglobin 11.0 L Hematocrit 33.9 L Mean Corpuscular Volume 90.9 Mean Corpuscular Hemoglobin 29.5 Mean Corpuscular Hemoglobin Concent 32.4 Red Cell Distribution Width 13.7 Platelet Count 172 Mean Platelet Volume 12.1 H Neutrophils % 83.8 H Lymphocytes % 6.8 L Monocytes % 6.5 Eosinophils % 1.8 Basophils % 0.3 Nucleated Red Blood Cells % 0.0 Neutrophils # 8.8 H Lymphocytes # 0.7 L Monocytes # 0.7 Eosinophils # 0.2 Basophils # 0.0 Nucleated Red Blood Cells # 0.0 Sodium Level 138 Potassium Level 2.9 *L Chloride Level 109 Carbon Dioxide Level 23 Anion Gap 9 Blood Urea Nitrogen 13 Creatinine 0.75 Glucose Level 97 Calcium Level 8.1 L Magnesium Level 2.2 Total Bilirubin 0.3 Direct Bilirubin 0.00 Indirect Bilirubin 0.3 Aspartate Amino Transf (AST/SGOT) 22 Alanine Aminotransferase (ALT/SGPT) 33 Alkaline Phosphatase 71 Total Protein 5.7 L Albumin 2.6 L Globulin 3.10 Albumin/Globulin Ratio 0.83 Medications Current Medications Donepezil HCl (Aricept) 10 mg DAILY PO Last administered on 07/21/17 08:12; Admin Dose 10 MG; Start 07/17/17 at 09:00 Escitalopram Oxalate (Lexapro) 10 mg DAILY PO Last administered on 07/21/17 08:11; Admin Dose 10 MG; Start 07/17/17 at 09:00 Metoprolol Tartrate (Lopressor) 25 mg BID PO Last administered on 07/21/17 08 :12; Admin Dose 25 MG; Start 07/16/17 at 21:00 Atorvastatin Calcium (Lipitor) 10 mg DAILY@21 PO Last administered on 20:44; Admin Dose 10 MG; Start 07/16/17 at 21:00 Acetaminophen (Tylenol Tab) 650 mg Q6H PRN PO PAIN LEVEL 1-3 OR FEVER Last administered on 07/19/17 16:19; Admin Dose 650 MG; Start 07/16/17 at 16:30 Acetaminophen/ Hydrocodone Bitart 1 tab 1 tab Q6H PRN PO MODERATE PAIN LEVEL 4- 6 Last administered on 07/16/17 22:39; Admin Dose 1 TAB; Start 07/16/17 at 16: 30 Ceftriaxone Sodium (Rocephin) 50 ml @ 100 mls/hr Q12H IVPB Last administered on 07/21/17 08:07; Admin Dose 100 MLS/HR; Start 07/16/17 at 20:00 Hydralazine HCl (Apresoline) 20 mg Q6H PRN IV ELEVATED BLOOD PRESSURE Last administered on 07/21/17 08:12; Admin Dose 20 MG; Start 07/16/17 at 22:00 Acetaminophen 650 mg 650 mg Q6H PRN [place] elevated temp Last administered on 17:56; Admin Dose 650 MG; Start 07/17/17 at 17:30 Sodium Chloride (NS) 1,000 ml @ 80 mls/hr [id number] IV Last administered on 11:52; Admin Dose 80 MLS/HR; Start 07/17/17 at 20:00 Metoprolol Tartrate 5 mg 5 mg Q5M PRN IV HR>120 Last administered on 07/19/17 16:26; Admin Dose 5 MG; Start 07/19/17 at 16:30 Diltiazem HCl (Cardizem-D5W 125 Mg/125 ml Drip) 125 ml @ 5 mls/hr TITRATE IV Last administered on 07/20/17 06:40; Admin Dose 10 MLS/HR; Start 07/19/17 at 17 :30 Influenza Virus Vaccine 0.5 ml 0.5 ml ONCE ONCE IM* ; Start 07/22/17 at 12:00; Stop 07/22/17 at 12:01 Potassium Chloride 250 ml @ 62.5 mls/hr Q4H IVPB Last administered on 11:51; Admin Dose 62.5 MLS/HR; Start 07/21/17 at 12:00; Stop 07/21/17 at 19:59 Vancomycin HCl/ Sodium Chloride (Vancocin/NS) 150 ml @ 75 mls/hr Q12H IVPB ; Start 07/22/17 at 04:00 Assessment/Plan Chief Complaint/Hosp Course 1. Sepsis infection, etiology unclear. An LP could not be done unfortunately. Antibiotic as per ID recommendation. 2. Paroxysmal atrial fibrillation with rapid ventricular response, currently back to sinus rhythm. 3. History of hypertension. 4. History of aortic valve replacement with bioprosthetic aortic valve. 5. Memory impairment and dementia. 6. Encephalopathy. 7. Hypertension. 8. Tachybrady. 9. hypo K RECOMMENDATIONS: Blood cultures have been so far negative. Antibiotic is managed as per ID recommendation. I will cont the patient on metoprolol as tolerated. . Monitor on telemetry closely. Potassium level, electrolytes to be corrected as needed. K is being replaced now will monitor on tele. Thank you for this referral. We will continue to follow along with you. LEO ARELLANO MD [facility] Problems: LEO ARELLANO MD Jul 21, 2017 18:54
[2017-07-21] MEDS: ATORVASTATIN 10 MG TAB PO SCH (21:14)
[2017-07-22] VITALS (15 sets, daily range): BP systolic 137–193; BP diastolic 54–93; PULSE 53–59; RESP 17–20
[2017-07-22] MEDS: VANCOMYCIN 750 MG in SOD CHLORIDE 0.9% 150 ML IVPB SCH ×2 (04:58→16:33)
[2017-07-22] MEDS: hydrALAzine 20 MG INJ IV PRN ×3 (05:05→17:56)
[2017-07-22] MEDS: SOD CHLORIDE 0.9% 1,000 ML IV SCH ×2 (05:54)
--- NOTE | 2017-07-22 08:39 | CONS ---
Date/Time of Note Date/Time of Note DATE: 07/22/17 TIME: 08:38 Consult Date/Type/Reason Admit Date/Time Jul 18, 2017 at 10:11 Type of Consultation: cardiology Subjective card f/u note: S: Discussed with the staff and rhythm strip was reviewed. Patient remains in normal sinus rhythm. No atrial fibrillation noted. Patient is still with poor appetite and is refusing to eat. No reports of chest pain or pressure or palpitation. o: General: no acute distress HEENT: NC/AT. pupils are equal. round. NECK: NO JVD. no stridor. CV: RRR. systolic murmur; no gallop or rubs. PULM: no wheezing or rhonchi. GI: SOFT, NT, ND, no rebound or guarding Extremity: trace B/L LE edema. no clubbing. neuro: awake and alert, OX1 at least . Psych: calm but depressed mood rectal: deferred : normal Objective Vital Signs Date Time Temp Pulse Resp B/P Pulse Ox O2 Delivery O2 Flow Rate FiO2 07/22/17 08:32 57 07/22/17 07:51 98.1 19 182/56 99 07/22/17 00:19 Nasal Cannula 3.0 Intake and Output 07/21/17 07/21/17 07/22/17 15:00 23:00 07:00 Intake Total 1310 ml Output Total 350 ml Balance 960 ml Results/Medications Result Diagram: 07/21/17 0848 07/21/17 0848 Results 24 hrs Laboratory Tests Test 07/21/17 08:48 White Blood Count 10.5 Red Blood Count 3.73 L Hemoglobin 11.0 L Hematocrit 33.9 L Mean Corpuscular Volume 90.9 Mean Corpuscular Hemoglobin 29.5 Mean Corpuscular Hemoglobin Concent 32.4 Red Cell Distribution Width 13.7 Platelet Count 172 Mean Platelet Volume 12.1 H Neutrophils % 83.8 H Lymphocytes % 6.8 L Monocytes % 6.5 Eosinophils % 1.8 Basophils % 0.3 Nucleated Red Blood Cells % 0.0 Neutrophils # 8.8 H Lymphocytes # 0.7 L Monocytes # 0.7 Eosinophils # 0.2 Basophils # 0.0 Nucleated Red Blood Cells # 0.0 Sodium Level 138 Potassium Level 2.9 *L Chloride Level 109 Carbon Dioxide Level 23 Anion Gap 9 Blood Urea Nitrogen 13 Creatinine 0.75 Glucose Level 97 Calcium Level 8.1 L Magnesium Level 2.2 Total Bilirubin 0.3 Direct Bilirubin 0.00 Indirect Bilirubin 0.3 Aspartate Amino Transf (AST/SGOT) 22 Alanine Aminotransferase (ALT/SGPT) 33 Alkaline Phosphatase 71 Total Protein 5.7 L Albumin 2.6 L Globulin 3.10 Albumin/Globulin Ratio 0.83 Medications Current Medications Donepezil HCl (Aricept) 10 mg DAILY PO Last administered on 07/21/17 08:12; Admin Dose 10 MG; Start 07/17/17 at 09:00 Escitalopram Oxalate (Lexapro) 10 mg DAILY PO Last administered on 07/21/17 08:11; Admin Dose 10 MG; Start 07/17/17 at 09:00 Metoprolol Tartrate (Lopressor) 25 mg BID PO Last administered on 07/21/17 21 :14; Admin Dose 25 MG; Start 07/16/17 at 21:00 Atorvastatin Calcium (Lipitor) 10 mg DAILY@21 PO Last administered on 21:14; Admin Dose 10 MG; Start 07/16/17 at 21:00 Acetaminophen (Tylenol Tab) 650 mg Q6H PRN PO PAIN LEVEL 1-3 OR FEVER Last administered on 07/19/17 16:19; Admin Dose 650 MG; Start 07/16/17 at 16:30 Acetaminophen/ Hydrocodone Bitart 1 tab 1 tab Q6H PRN PO MODERATE PAIN LEVEL 4- 6 Last administered on 07/16/17 22:39; Admin Dose 1 TAB; Start 07/16/17 at 16: 30 Ceftriaxone Sodium (Rocephin) 50 ml @ 100 mls/hr Q12H IVPB Last administered on 07/21/17 21:14; Admin Dose 100 MLS/HR; Start 07/16/17 at 20:00 Hydralazine HCl (Apresoline) 20 mg Q6H PRN IV ELEVATED BLOOD PRESSURE Last administered on 07/22/17 05:05; Admin Dose 20 MG; Start 07/16/17 at 22:00 Acetaminophen 650 mg 650 mg Q6H PRN [place] elevated temp Last administered on 17:56; Admin Dose 650 MG; Start 07/17/17 at 17:30 Sodium Chloride (NS) 1,000 ml @ 80 mls/hr [id number] IV Last administered on 05:54; Admin Dose 80 MLS/HR; Start 07/17/17 at 20:00 Metoprolol Tartrate 5 mg 5 mg Q5M PRN IV HR>120 Last administered on 07/19/17 16:26; Admin Dose 5 MG; Start 07/19/17 at 16:30 Diltiazem HCl (Cardizem-D5W 125 Mg/125 ml Drip) 125 ml @ 5 mls/hr TITRATE IV Last administered on 07/20/17 06:40; Admin Dose 10 MLS/HR; Start 07/19/17 at 17 :30 Influenza Virus Vaccine 0.5 ml 0.5 ml ONCE ONCE IM* ; Start 07/22/17 at 12:00; Stop 07/22/17 at 12:01 Vancomycin HCl/ Sodium Chloride (Vancocin/NS) 150 ml @ 75 mls/hr Q12H IVPB Last administered on 07/22/17 04:58; Admin Dose 75 MLS/HR; Start 07/22/17 at 04:00 Assessment/Plan Chief Complaint/Hosp Course 1. Sepsis infection, etiology unclear. An LP could not be done unfortunately. Antibiotic as per ID recommendation. 2. Paroxysmal atrial fibrillation with rapid ventricular response, currently back to sinus rhythm. 3. History of hypertension. 4. History of aortic valve replacement with bioprosthetic aortic valve. 5. Memory impairment and dementia. 6. Encephalopathy. 7. Hypertension. 8. Tachybrady. 9. hypo K RECOMMENDATIONS: Blood cultures have been so far negative. Antibiotic is managed as per ID recommendation. I will cont the patient on metoprolol as tolerated. Monitor on telemetry closely. Potassium level, electrolytes to be corrected as needed. will monitor on tele. Thank you for this referral. We will continue to follow along with you. LEO ARELLANO MD [facility] Problems: LEO ARELLANO MD Jul 22, 2017 08:39
[2017-07-22] MEDS: ESCITALOPRAM 10 MG TAB PO SCH (08:45)
[2017-07-22] MEDS: CEFTRIAXONE 2 GM/50 ML (PMX) 50 ML IVPB SCH ×2 (08:45→20:16)
[2017-07-22] MEDS: METOPROLOL 25 MG TAB PO SCH ×2 (08:46→20:17)
[2017-07-22] MEDS: DONEPEZIL 10 MG TAB PO SCH (09:28)
--- NOTE | 2017-07-22 11:14 | CONS ---
Date/Time of Note Date/Time of Note DATE: 07/22/17 TIME: 11:09 Assessment/Plan Assessment/Plan Chief Complaint/Hosp Course 76 yo female with hx of dementia, CAD s/p CABG admitted with fevers/ leukocytosis unclear source improving on abx unable to tolerate LP x2. CTH unrevealing for acute process. Recommend: MRI Brain w/o contrast consider LP under sedation, overall sx are improving w current regimen of abx ID following WNV to be sent also will follow Problems: Consultation Date/Type/Reason Admit Date/Time Jul 18, 2017 at 10:11 Date of Consultation: Jul 22, 2017 Type of Consultation: Neurology Reason for Consultation encephalopathy sepsis Referring Provider: RUSSEL HOLDER Hx of Present Illness 76 year old female w hx of dementia, CAD s/p CABG and valve replacement, admitted with sepsis/fever leukocytosis unclear etiology w acute encephalopathy. Unfortunately she was unable to tolerate LP attempted x2, improving on abx on Vancomycin, Rocephin, Ampicillin. WBC: 10.5 downtrending. ID following, WNV to be sent. CTH shows atrophy no acute process. Social History Smoking Status: Never smoker Exam/Review of Systems Vital Signs Vitals Vital Signs Date Time Temp Pulse Resp B/P Pulse Ox O2 Delivery O2 Flow Rate FiO2 07/22/17 08:32 57 07/22/17 08:00 Nasal Cannula 3.0 07/22/17 07:51 98.1 19 182/56 99 Intake and Output 07/21/17 07/21/17 07/22/17 15:00 23:00 07:00 Intake Total 1310 ml Output Total 350 ml Balance 960 ml Exam awake alert disoriented, disorganized speech can count backwards 10 --> 1 follows commands CN: II-XII intact Motor: no focal weakness no drift strength intact throughout Reflexes 1+ throughout Results Result Diagram: 07/21/1748 07/21/1748 Medications Medications Current Medications Donepezil HCl (Aricept) 10 mg DAILY PO Last administered on 07/22/17 09:28; Admin Dose 10 MG; Start 07/17/17 at 09:00 Escitalopram Oxalate (Lexapro) 10 mg DAILY PO Last administered on 07/22/17 08:45; Admin Dose 10 MG; Start 07/17/17 at 09:00 Metoprolol Tartrate (Lopressor) 25 mg BID PO Last administered on 07/22/17 08 :46; Admin Dose 25 MG; Start 07/16/17 at 21:00 Atorvastatin Calcium (Lipitor) 10 mg DAILY@21 PO Last administered on 21:14; Admin Dose 10 MG; Start 07/16/17 at 21:00 Acetaminophen (Tylenol Tab) 650 mg Q6H PRN PO PAIN LEVEL 1-3 OR FEVER Last administered on 07/19/17 16:19; Admin Dose 650 MG; Start 07/16/17 at 16:30 Acetaminophen/ Hydrocodone Bitart 1 tab 1 tab Q6H PRN PO MODERATE PAIN LEVEL 4- 6 Last administered on 07/16/17 22:39; Admin Dose 1 TAB; Start 07/16/17 at 16: 30 Ceftriaxone Sodium (Rocephin) 50 ml @ 100 mls/hr Q12H IVPB Last administered on 07/22/17 08:45; Admin Dose 100 MLS/HR; Start 07/16/17 at 20:00 Hydralazine HCl (Apresoline) 20 mg Q6H PRN IV ELEVATED BLOOD PRESSURE Last administered on 07/22/17 05:05; Admin Dose 20 MG; Start 07/16/17 at 22:00 Acetaminophen 650 mg 650 mg Q6H PRN [place] elevated temp Last administered on 17:56; Admin Dose 650 MG; Start 07/17/17 at 17:30 Sodium Chloride (NS) 1,000 ml @ 80 mls/hr [id number] IV Last administered on 05:54; Admin Dose 80 MLS/HR; Start 07/17/17 at 20:00 Metoprolol Tartrate 5 mg 5 mg Q5M PRN IV HR>120 Last administered on 07/19/17 16:26; Admin Dose 5 MG; Start 07/19/17 at 16:30 Diltiazem HCl (Cardizem-D5W 125 Mg/125 ml Drip) 125 ml @ 5 mls/hr TITRATE IV Last administered on 07/20/17 06:40; Admin Dose 10 MLS/HR; Start 07/19/17 at 17 :30 Influenza Virus Vaccine 0.5 ml 0.5 ml ONCE ONCE IM* ; Start 07/22/17 at 12:00; Stop 07/22/17 at 12:01 Vancomycin HCl/ Sodium Chloride (Vancocin/NS) 150 ml @ 75 mls/hr Q12H IVPB Last administered on 07/22/17t 04:58; Admin Dose 75 MLS/HR; Start 07/22/17 at 04:00 TARA HARRINGTON MD Jul 22, 2017 11:14
[2017-07-22] MEDS ORDERED: INFLUENZA VIRUS VACCINE 0.5 ML SYG IM* ONE (12:00)
--- NOTE | 2017-07-22 15:21 | PN ---
Date/Time of Note Date/Time of Note DATE: 07/22/17 TIME: 15:17 Assessment/Plan VTE Prophylaxis VTE Prophylaxis Intervention: SCD's Lines/Catheters IV Catheter Type (from Nrs): Peripheral IV Urinary Cath still in place: Yes Reason Cath still needed: urinary retention Assessment/Plan Chief Complaint/Hosp Course Assessment/Plan: 76 yo F with pmhx dementia, HTN, HL, depression here with fever and rigors concerning for possible infectious source, though none has yet been elucidated. Fever now resolved. 1. sepsis- Pt with at this time culture negative sepsis which appears to be improving/resolving, given combination of headache, AMS and fever, cannot exclude prospect of bacterial meningitis. Spinal imaging without abscess. EBV serum Ab's are positive. -cont empiric abx with ceftriaxone, vanc, and f/u infectious disease rec's -LP ordered but could not be done 3 days ago 2/ agitation. Monitor CB c and for fevers and follow-up infectious disease recommendations, per Neuro, consider doing LP under sedation. - f/u MRI brain - west nile serologies ordered per ID [id number] final results 2. A. fib with RVR: Again patient now in sinus bradycardia rhythm. Appreciate cardiology consult, especially given patient's prior history of aortic valve replacement 4 years ago. -Continue beta-derek for now -Follow-up speech therapy and PT consults as well. 3. Early dementia: Per nursing staff and caregiver, patient's mental status appears to be more altered than normal, could be secondary to sepsis and prior A. fib with RVR, again patient appears slightly more alert today. Head CT done on July 16 was negative for any acute pathologies. -Appreciate neurology consult, again follow the recommendations and MRI of the brain Problems: Subjective 24 Hr Interval Summary Free Text/Dictation Patient seen by neurology team yesterday, MRI of the brain is pending. Tolerating diet. EBV serum AB's IgM and IgG are both positive. Exam/Review of Systems Vital Signs Vitals Vital Signs Date Time Temp Pulse Resp B/P Pulse Ox O2 Delivery O2 Flow Rate FiO2 07/22/17 12:14 59 07/22/17 12:00 144/54 07/22/17 11:41 98.0 17 97 07/22/17 08:00 Nasal Cannula 3.0 Intake and Output 07/21/17 07/21/17 07/22/17 15:00 23:00 07:00 Intake Total 1310 ml Output Total 350 ml Balance 960 ml Exam nad, lethargic, but answering basic questions no mrg lungs clear abd soft no rashes Results Result Diagram: 07/21/17 0848 07/21/17 0848 Results 24 hrs Laboratory Tests Test 07/22/17 11:54 07/22/17 15:00 Lab Scanned Report REFERENCE LAB CSF Tubes Submitted CSF Volume CSF Appearance CSF Color CSF WBC CSF RBC CSF Cell Count Tube # CSF Mononuclear Cells % (Auto) CSF Polynuclear WBCs (%) CSF Glucose CSF Total Protein Medications Medications Current Medications Donepezil HCl (Aricept) 10 mg DAILY PO Last administered on 07/22/17 09:28; Admin Dose 10 MG; Start 07/17/17 at 09:00 Escitalopram Oxalate (Lexapro) 10 mg DAILY PO Last administered on 07/22/17 08:45; Admin Dose 10 MG; Start 07/17/17 at 09:00 Metoprolol Tartrate (Lopressor) 25 mg BID PO Last administered on 07/22/17 08 :46; Admin Dose 25 MG; Start 07/16/17 at 21:00 Atorvastatin Calcium (Lipitor) 10 mg DAILY@21 PO Last administered on 21:14; Admin Dose 10 MG; Start 07/16/17 at 21:00 Acetaminophen (Tylenol Tab) 650 mg Q6H PRN PO PAIN LEVEL 1-3 OR FEVER Last administered on 07/19/17 16:19; Admin Dose 650 MG; Start 07/16/17 at 16:30 Acetaminophen/ Hydrocodone Bitart 1 tab 1 tab Q6H PRN PO MODERATE PAIN LEVEL 4- 6 Last administered on 07/16/17 22:39; Admin Dose 1 TAB; Start 07/16/17 at 16: 30 Ceftriaxone Sodium (Rocephin) 50 ml @ 100 mls/hr Q12H IVPB Last administered on 07/22/17 08:45; Admin Dose 100 MLS/HR; Start 07/16/17 at 20:00 Acetaminophen 650 mg 650 mg Q6H PRN [place] elevated temp Last administered on 17:56; Admin Dose 650 MG; Start 07/17/17 at 17:30 Sodium Chloride (NS) 1,000 ml @ 80 mls/hr [id number] IV Last administered on 05:54; Admin Dose 80 MLS/HR; Start 07/17/17 at 20:00 Metoprolol Tartrate 5 mg 5 mg Q5M PRN IV HR>120 Last administered on 07/19/17 16:26; Admin Dose 5 MG; Start 07/19/17 at 16:30 Diltiazem HCl 125 ml @ 5 mls/hr TITRATE IV Last administered on 07/20/17 06:40 ; Admin Dose 10 MLS/HR; Start 07/19/17 at 17:30 Vancomycin HCl/ Sodium Chloride (Vancocin/NS) 150 ml @ 75 mls/hr Q12H IVPB Last administered on 07/22/17 04:58; Admin Dose 75 MLS/HR; Start 07/22/17 at 04:00 Hydralazine HCl (Apresoline) 10 mg Q4H PRN IV ELEVATED BLOOD PRESSURE; Start 07/22/17 at 15:30; Status UNRUSSEL BOLAÑOS Jul 22, 2017 15:21
--- NOTE | 2017-07-22 15:38 | PN ---
DATE: 07/22/2017 SUBJECTIVE: No acute changes. The patient remains lethargic in no distress and afebrile. No labs this morning. ANTIMICROBIALS: Patient is on vancomycin and Rocephin. MICROBIOLOGY: Blood cultures and urine cultures since admission negative. PHYSICAL EXAMINATION: GENERAL: This is a fragile, elderly woman who is lethargic, in no distress. HEENT: Head atraumatic, normocephalic. Sclerae anicteric. Buccal mucosa dry. NECK: Supple, trachea midline. CHEST: Rise symmetrical. Breath sounds diminished to bases. HEART: S1, S2. ABDOMEN: Soft, bowel tones present. EXTREMITIES: Without cyanosis. ASSESSMENT: 1. Sepsis with fevers, leukocytosis and acute encephalopathy on admission. 2. Questionable meningitis. 3. History of coronary artery bypass graft and valve replacement. 4. Alzheimer dementia. 5. History of cervical fusion, no evidence of infectious process per spinal CT. 6. The patient remains clinically stable with persistent encephalopathy. Lumbar puncture is not done because patient was combative. Brain CT on admission was negative. Serology for West Nile virus pending. She is going to be seen by neurology for further recommendations. We will continue her on current antibiotics for now. 7. A 2-D echocardiogram on admission revealed no vegetations. Dictated By: KARIS FORMAN SLIVER LAPPER for SINGH DENIS/PROSPER Conf#: [id number] DID#: [id number]
[2017-07-22] MEDS: ATORVASTATIN 10 MG TAB PO SCH (20:17)
[2017-07-23] VITALS (13 sets, daily range): BP systolic 144–178; BP diastolic 61–75; PULSE 51–65; RESP 17–20
[2017-07-23] MEDS: SOD CHLORIDE 0.9% 1,000 ML IV SCH ×3 (00:04→14:51)
[2017-07-23] MEDS: VANCOMYCIN 750 MG in SOD CHLORIDE 0.9% 150 ML IVPB SCH ×2 (04:03→15:06)
[2017-07-23] MEDS: hydrALAzine 20 MG INJ IV PRN ×2 (04:06→16:57)
[2017-07-23 07:21] LABS: ABNORMAL IP MESSAGE 1; BASOPHILS % 0.3 % (0.0-2.0); EOSINOPHILS # 0.4 10^3/ul (0.0-0.5); EOSINOPHILS % 2.7 % (0.0-7.0); HEMATOCRIT 34.5 % (37.0-47.0); HEMOGLOBIN 11.5 g/dl (12.0-16.0); LYMPHOCYTES # 0.6 10^3/ul (0.8-2.9); LYMPHOCYTES % 4.9 % (15.0-51.0); MEAN CORPUSCULAR HEMOGLOBIN 30.4 pg (29.0-33.0); MEAN CORPUSCULAR HGB CONC 33.3 g/dl (32.0-37.0); MEAN CORPUSCULAR VOLUME 91.3 fl (82.0-101.0); MEAN PLATELET VOLUME 13.8 fl (7.4-10.4); MONOCYTE # 0.8 10^3/ul (0.3-0.9); MONOCYTES % 6.4 % (0.0-11.0); NEUTROPHIL # 10.8 10^3/ul (1.6-7.5); NEUTROPHILS % 84.4 % (39.0-77.0); PLATELET COUNT 144 10^3/UL (140-415); RED BLOOD COUNT 3.78 10^6/ul (4.20-5.40); RED CELL DISTRIBUTION WIDTH 14.1 % (11.5-14.5); WHITE BLOOD COUNT 12.8 10^3/ul (4.8-10.8)
[2017-07-23 07:26] LABS: POSITIVE DIFF @See below
[2017-07-23 07:43] LABS: CALCIUM 8.6 mg/dl (8.4-10.2); CREATININE 0.66 mg/dl (0.44-1.00); POTASSIUM 3.9 mmol/L (3.5-5.1)
--- NOTE | 2017-07-23 08:34 | CONS ---
Date/Time of Note Date/Time of Note DATE: 07/23/17 TIME: 08:23 Consult Date/Type/Reason Admit Date/Time Jul 18, 2017 at 10:11 Type of Consultation: cardiology Ordering Provider: RUSSEL HOLDER Subjective card f/u note: S: Discussed with the staff and rhythm strip was reviewed. Patient remains in normal sinus rhythm. No atrial fibrillation noted overnight Patient is still with poor appetite and is refusing to eat. No reports of chest pain or pressure or palpitation. O: General: no acute distress HEENT: NC/AT. pupils are equal. round. NECK: NO JVD. no stridor. CV: RRR. systolic murmur; no gallop or rubs. PULM: no wheezing or rhonchi. GI: SOFT, NT, ND, no rebound or guarding Extremity: trace B/L LE edema. no clubbing. neuro: awake and alert, OX1 at least . Psych: calm but depressed mood rectal: deferred echo reviewed: 1. Normal left ventricular systolic function. Normal left ventricular cavity size. Mild concentric left ventricular hypertrophy. Ejection fraction is visually estimated at 65 %. Abnormal Diastolic Function. 2. There is mild enlargement of left atrium. 3. Mild mitral leaflet calcification. Mild mitral annular calcification. Mild mitral valve regurgitation. 4. Aortic valve not well visualized. Aortic Valve Bio Prosthesis. Aortic valve Max velocity 3.07 m/sec. Max PG 38.00 mmHg. Mean PG 20.00 mmHg. 5. Normal appearance of the tricuspid valve. Estimated peak PA systolic pressure 53 mmHg. There is mild tricuspid regurgitation. Objective Vital Signs Date Time Temp Pulse Resp B/P Pulse Ox O2 Delivery O2 Flow Rate FiO2 07/23/17 07:55 97.5 61 20 170/73 99 07/23/17 00:00 Nasal Cannula 3.0 Intake and Output 07/22/17 07/22/17 07/23/17 15:00 23:00 07:00 Intake Total 1370 ml 1570 ml Output Total 400 ml 750 ml Balance 970 ml 820 ml Results/Medications Result Diagram: 07/23/17 0707/23/17702 Results 24 hrs Laboratory Tests Test 07/22/17 11:54 07/22/17 14:58 07/22/17 15:00 07/23/17 07:03 Lab Scanned Report REFERENCE LAB Vancomycin Level Trough 14.6 CSF Tubes Submitted CSF Volume CSF Appearance CSF Color CSF WBC CSF RBC CSF Cell Count Tube # CSF Mononuclear Cells % (Auto) CSF Polynuclear WBCs (%) CSF Glucose CSF Total Protein White Blood Count 12.8 #H Red Blood Count 3.78 L Hemoglobin 11.5 L Hematocrit 34.5 L Mean Corpuscular Volume 91.3 Mean Corpuscular Hemoglobin 30.4 Mean Corpuscular Hemoglobin Concent 33.3 Red Cell Distribution Width 14.1 Platelet Count 144 Mean Platelet Volume 13.8 H Neutrophils % 84.4 H Lymphocytes % 4.9 L Monocytes % 6.4 Eosinophils % 2.7 Basophils % 0.3 Nucleated Red Blood Cells % 0.0 Neutrophils # 10.8 H Lymphocytes # 0.6 L Monocytes # 0.8 Eosinophils # 0.4 Basophils # 0.0 Nucleated Red Blood Cells # 0.0 Sodium Level 141 Potassium Level 3.9 Chloride Level 111 H Carbon Dioxide Level 23 Anion Gap 11 Blood Urea Nitrogen 13 Creatinine 0.66 Glucose Level 90 Calcium Level 8.6 Medications Current Medications Donepezil HCl (Aricept) 10 mg DAILY PO Last administered on 07/22/17 09:28; Admin Dose 10 MG; Start 07/17/17 at 09:00 Escitalopram Oxalate (Lexapro) 10 mg DAILY PO Last administered on 07/22/17 08:45; Admin Dose 10 MG; Start 07/17/17 at 09:00 Metoprolol Tartrate (Lopressor) 25 mg BID PO Last administered on 07/22/17 20 :17; Admin Dose 25 MG; Start 07/16/17 at 21:00 Atorvastatin Calcium (Lipitor) 10 mg DAILY@21 PO Last administered on 20:17; Admin Dose 10 MG; Start 07/16/17 at 21:00 Acetaminophen (Tylenol Tab) 650 mg Q6H PRN PO PAIN LEVEL 1-3 OR FEVER Last administered on 07/19/17 16:19; Admin Dose 650 MG; Start 07/16/17 at 16:30 Acetaminophen/ Hydrocodone Bitart 1 tab 1 tab Q6H PRN PO MODERATE PAIN LEVEL 4- 6 Last administered on 07/16/17 22:39; Admin Dose 1 TAB; Start 07/16/17 at 16: 30 Ceftriaxone Sodium (Rocephin) 50 ml @ 100 mls/hr Q12H IVPB Last administered on 07/22/17 20:16; Admin Dose 100 MLS/HR; Start 07/16/17 at 20:00 Acetaminophen 650 mg 650 mg Q6H PRN [place] elevated temp Last administered on 17:56; Admin Dose 650 MG; Start 07/17/17 at 17:30 Sodium Chloride (NS) 1,000 ml @ 80 mls/hr [id number] IV Last administered on 00:04; Admin Dose 80 MLS/HR; Start 07/17/17 at 20:00 Metoprolol Tartrate 5 mg 5 mg Q5M PRN IV HR>120 Last administered on 07/19/17 16:26; Admin Dose 5 MG; Start 07/19/17 at 16:30 Diltiazem HCl 125 ml @ 5 mls/hr TITRATE IV Last administered on 07/20/17 06:40 ; Admin Dose 10 MLS/HR; Start 07/19/17 at 17:30 Vancomycin HCl/ Sodium Chloride (Vancocin/NS) 150 ml @ 75 mls/hr Q12H IVPB Last administered on 07/23/17 04:03; Admin Dose 75 MLS/HR; Start 07/22/17 at 04:00 Hydralazine HCl (Apresoline) 10 mg Q4H PRN IV ELEVATED BLOOD PRESSURE Last administered on 07/23/17 04:06; Admin Dose 10 MG; Start 07/22/17 at 15:30 Assessment/Plan Chief Complaint/Hosp Course 1. Sepsis infection, etiology unclear. An LP could not be done unfortunately. Antibiotic as per ID recommendation. 2. Paroxysmal atrial fibrillation with rapid ventricular response, currently back to sinus rhythm. 3. History of hypertension. 4. History of aortic valve replacement with bioprosthetic aortic valve. 5. Memory impairment and dementia. 6. Encephalopathy. 7. Hypertension. 8. Tachybrady. 9. hypo K : replaced now RECOMMENDATIONS: Blood cultures have been so far negative. Antibiotic is managed as per ID recommendation. I will cont the patient on metoprolol as tolerated. Monitor on telemetry closely. Potassium level, electrolytes to be corrected as needed. will monitor on tele. will add ARB Thank you for this referral. We will continue to follow along with you. LEO ARELLANO MD FACC Problems: LEO ARELLANO MD Jul 23, 2017 08:34
[2017-07-23] MEDS: ESCITALOPRAM 10 MG TAB PO SCH (09:29)
[2017-07-23] MEDS: VALSARTAN 80 MG TAB PO SCH ×2 (09:29→21:47)
[2017-07-23] MEDS: DONEPEZIL 10 MG TAB PO SCH (09:30)
[2017-07-23] MEDS: METOPROLOL 25 MG TAB PO SCH ×2 (09:30→21:47)
[2017-07-23] MEDS: CEFTRIAXONE 2 GM/50 ML (PMX) 50 ML IVPB SCH ×2 (09:31→21:47)
--- NOTE | 2017-07-23 12:07 | CONS ---
Date/Time of Note Date/Time of Note DATE: 07/23/17 TIME: 12:02 Consult Date/Type/Reason Admit Date/Time Jul 18, 2017 at 10:11 Initial Consult Date 07/22/17 Type of Consultation: Neurology Reason for Consultation encephalopathy Ordering Provider: RUSSEL HOLDER Subjective persistent encephalopathy complains of feeling worse today Objective Vital Signs Date Time Temp Pulse Resp B/P Pulse Ox O2 Delivery O2 Flow Rate FiO2 07/23/17 11:43 98.2 59 18 178/72 100 07/23/17 10:43 Nasal Cannula 3.0 Intake and Output 07/22/17 07/22/17 07/23/17 15:00 23:00 07:00 Intake Total 1370 ml 1570 ml Output Total 400 ml 750 ml Balance 970 ml 820 ml Exam awake alert disoriented, disorganized speech can count backwards 10 --> 1 follows commands CN: II-XII intact Motor: no focal weakness no drift strength intact throughout Reflexes 1+ throughout Results/Medications Result Diagram: 07/23/1703 07/23/17 0703 Results 24 hrs Laboratory Tests Test 07/22/17 14:58 07/22/17 15:00 07/23/17 07:03 Vancomycin Level Trough 14.6 CSF Tubes Submitted CSF Volume CSF Appearance CSF Color CSF WBC CSF RBC CSF Cell Count Tube # CSF Mononuclear Cells % (Auto) CSF Polynuclear WBCs (%) CSF Glucose CSF Total Protein White Blood Count 12.8 #H Red Blood Count 3.78 L Hemoglobin 11.5 L Hematocrit 34.5 L Mean Corpuscular Volume 91.3 Mean Corpuscular Hemoglobin 30.4 Mean Corpuscular Hemoglobin Concent 33.3 Red Cell Distribution Width 14.1 Platelet Count 144 Mean Platelet Volume 13.8 H Neutrophils % 84.4 H Lymphocytes % 4.9 L Monocytes % 6.4 Eosinophils % 2.7 Basophils % 0.3 Nucleated Red Blood Cells % 0.0 Neutrophils # 10.8 H Lymphocytes # 0.6 L Monocytes # 0.8 Eosinophils # 0.4 Basophils # 0.0 Nucleated Red Blood Cells # 0.0 Sodium Level 141 Potassium Level 3.9 Chloride Level 111 H Carbon Dioxide Level 23 Anion Gap 11 Blood Urea Nitrogen 13 Creatinine 0.66 Glucose Level 90 Calcium Level 8.6 Medications Current Medications Donepezil HCl (Aricept) 10 mg DAILY PO Last administered on 07/23/17 09:30; Admin Dose 10 MG; Start 07/17/17 at 09:00 Escitalopram Oxalate (Lexapro) 10 mg DAILY PO Last administered on 07/23/17 09:29; Admin Dose 10 MG; Start 07/17/17 at 09:00 Metoprolol Tartrate (Lopressor) 25 mg BID PO Last administered on 07/23/17 09 :30; Admin Dose 25 MG; Start 07/16/17 at 21:00 Atorvastatin Calcium (Lipitor) 10 mg DAILY@21 PO Last administered on 20:17; Admin Dose 10 MG; Start 07/16/17 at 21:00 Acetaminophen (Tylenol Tab) 650 mg Q6H PRN PO PAIN LEVEL 1-3 OR FEVER Last administered on 07/19/17 16:19; Admin Dose 650 MG; Start 07/16/17 at 16:30 Acetaminophen/ Hydrocodone Bitart 1 tab 1 tab Q6H PRN PO MODERATE PAIN LEVEL 4- 6 Last administered on 07/16/17 22:39; Admin Dose 1 TAB; Start 07/16/17 at 16: 30 Ceftriaxone Sodium (Rocephin) 50 ml @ 100 mls/hr Q12H IVPB Last administered on 07/23/17 09:31; Admin Dose 100 MLS/HR; Start 07/16/17 at 20:00 Acetaminophen 650 mg 650 mg Q6H PRN [place] elevated temp Last administered on 17:56; Admin Dose 650 MG; Start 07/17/17 at 17:30 Sodium Chloride (NS) 1,000 ml @ 80 mls/hr [id number] IV Last administered on 00:04; Admin Dose 80 MLS/HR; Start 07/17/17 at 20:00 Metoprolol Tartrate 5 mg 5 mg Q5M PRN IV HR>120 Last administered on 07/19/17 16:26; Admin Dose 5 MG; Start 07/19/17 at 16:30 Diltiazem HCl 125 ml @ 5 mls/hr TITRATE IV Last administered on 07/20/17 06:40 ; Admin Dose 10 MLS/HR; Start 07/19/17 at 17:30 Vancomycin HCl/ Sodium Chloride (Vancocin/NS) 150 ml @ 75 mls/hr Q12H IVPB Last administered on 07/23/17 04:03; Admin Dose 75 MLS/HR; Start 07/22/17 at 04:00 Hydralazine HCl (Apresoline) 10 mg Q4H PRN IV ELEVATED BLOOD PRESSURE Last administered on 07/23/17 04:06; Admin Dose 10 MG; Start 07/22/17 at 15:30 Valsartan (Diovan) 40 mg BID PO Last administered on 07/23/17 09:29; Admin Dose 40 MG; Start 07/23/17 at 09:00 Assessment/Plan Chief Complaint/Hosp Course 76 yo female with hx of dementia, CAD s/p CABG admitted with fevers/ leukocytosis unclear source improving on abx- Ceftriaxone, Vancomycin, unable to tolerate LP x2. CTH unrevealing for acute process. Recommend: MRI Brain w/o contrast is pending unable to tolerate LP due to agitation, WBC elevated 12.8 today consider LP under sedation WNV sent result is pending, blood cultures negative x2 will follow Problems: TARA HARRINGTON MD Jul 23, 2017 12:07
--- NOTE | 2017-07-23 13:47 | CONS ---
Date/Time of Note Date/Time of Note DATE: 07/23/17 TIME: 13:45 Assessment/Plan Assessment/Plan Chief Complaint/Hosp Course SUBJECTIVE: No acute changes. The patient is awake, confused, in no distress, afebrile. ANTIMICROBIALS: Vancomycin and Rocephin. MICROBIOLOGY: Blood cultures and urine cultures since admission negative. PHYSICAL EXAMINATION: GENERAL: This is a fragile, elderly woman who is lethargic, in no distress. HEENT: Head atraumatic, normocephalic. Sclerae anicteric. Buccal mucosa dry. NECK: Supple, trachea midline. CHEST: Rise symmetrical. Breath sounds diminished to bases. HEART: S1, S2. ABDOMEN: Soft, bowel tones present. EXTREMITIES: Without cyanosis. ASSESSMENT: 1. Sepsis with fevers, leukocytosis and acute encephalopathy on admission. 2. Questionable meningitis. 3. History of coronary artery bypass graft and valve replacement. 4. Alzheimer dementia. 5. History of cervical fusion, no evidence of infectious process per spinal CT. 6. The patient remains clinically stable with persistent encephalopathy. Lumbar puncture is not done because patient was combative. Brain CT on admission was negative. Serology for [place] virus pending. Neurology follows. We will continue her on current antibiotics for now. 7. A 2-D echocardiogram on admission revealed no vegetations. Problems: Consultation Date/Type/Reason Admit Date/Time Jul 18, 2017 at 10:11 Type of Consultation: ID Referring Provider: RUSSEL HOLDER Exam/Review of Systems Vital Signs Vitals Vital Signs Date Time Temp Pulse Resp B/P Pulse Ox O2 Delivery O2 Flow Rate FiO2 07/23/17 11:43 98.2 59 18 178/72 100 07/23/17 10:43 Nasal Cannula 3.0 Intake and Output 07/22/17 07/22/17 07/23/17 15:00 23:00 07:00 Intake Total 1370 ml 1570 ml Output Total 400 ml 750 ml Balance 970 ml 820 ml Results Result Diagram: 07/23/17 0707/23/17 0703 Results 24 hrs Laboratory Tests Test 07/22/17 14:58 07/22/17 15:00 07/23/17 07:03 Vancomycin Level Trough 14.6 CSF Tubes Submitted CSF Volume CSF Appearance CSF Color CSF WBC CSF RBC CSF Cell Count Tube # CSF Mononuclear Cells % (Auto) CSF Polynuclear WBCs (%) CSF Glucose CSF Total Protein White Blood Count 12.8 #H Red Blood Count 3.78 L Hemoglobin 11.5 L Hematocrit 34.5 L Mean Corpuscular Volume 91.3 Mean Corpuscular Hemoglobin 30.4 Mean Corpuscular Hemoglobin Concent 33.3 Red Cell Distribution Width 14.1 Platelet Count 144 Mean Platelet Volume 13.8 H Neutrophils % 84.4 H Lymphocytes % 4.9 L Monocytes % 6.4 Eosinophils % 2.7 Basophils % 0.3 Nucleated Red Blood Cells % 0.0 Neutrophils # 10.8 H Lymphocytes # 0.6 L Monocytes # 0.8 Eosinophils # 0.4 Basophils # 0.0 Nucleated Red Blood Cells # 0.0 Sodium Level 141 Potassium Level 3.9 Chloride Level 111 H Carbon Dioxide Level 23 Anion Gap 11 Blood Urea Nitrogen 13 Creatinine 0.66 Glucose Level 90 Calcium Level 8.6 Medications Medications Current Medications Donepezil HCl (Aricept) 10 mg DAILY PO Last administered on 07/23/17 09:30; Admin Dose 10 MG; Start 07/17/17 at 09:00 Escitalopram Oxalate (Lexapro) 10 mg DAILY PO Last administered on 07/23/17 09:29; Admin Dose 10 MG; Start 07/17/17 at 09:00 Metoprolol Tartrate (Lopressor) 25 mg BID PO Last administered on 07/23/17 09 :30; Admin Dose 25 MG; Start 07/16/17 at 21:00 Atorvastatin Calcium (Lipitor) 10 mg DAILY@21 PO Last administered on 20:17; Admin Dose 10 MG; Start 07/16/17 at 21:00 Acetaminophen (Tylenol Tab) 650 mg Q6H PRN PO PAIN LEVEL 1-3 OR FEVER Last administered on 07/19/17 16:19; Admin Dose 650 MG; Start 07/16/17 at 16:30 Acetaminophen/ Hydrocodone Bitart 1 tab 1 tab Q6H PRN PO MODERATE PAIN LEVEL 4- 6 Last administered on 07/16/17 22:39; Admin Dose 1 TAB; Start 07/16/17 at 16: 30 Ceftriaxone Sodium (Rocephin) 50 ml @ 100 mls/hr Q12H IVPB Last administered on 07/23/17 09:31; Admin Dose 100 MLS/HR; Start 07/16/17 at 20:00 Acetaminophen 650 mg 650 mg Q6H PRN [place] elevated temp Last administered on 17:56; Admin Dose 650 MG; Start 07/17/17 at 17:30 Sodium Chloride (NS) 1,000 ml @ 80 mls/hr [id number] IV Last administered on 00:04; Admin Dose 80 MLS/HR; Start 07/17/17 at 20:00 Metoprolol Tartrate 5 mg 5 mg Q5M PRN IV HR>120 Last administered on 07/19/17 16:26; Admin Dose 5 MG; Start 07/19/17 at 16:30 Diltiazem HCl 125 ml @ 5 mls/hr TITRATE IV Last administered on 07/20/17 06:40 ; Admin Dose 10 MLS/HR; Start 07/19/17 at 17:30 Vancomycin HCl/ Sodium Chloride (Vancocin/NS) 150 ml @ 75 mls/hr Q12H IVPB Last administered on 07/23/17 04:03; Admin Dose 75 MLS/HR; Start 07/22/17 at 04:00 Hydralazine HCl (Apresoline) 10 mg Q4H PRN IV ELEVATED BLOOD PRESSURE Last administered on 07/23/17 04:06; Admin Dose 10 MG; Start 07/22/17 at 15:30 Valsartan (Diovan) 40 mg BID PO Last administered on 07/23/17 09:29; Admin Dose 40 MG; Start 07/23/17 at 09:00 KARIS FOMRAN NP Jul 23, 2017 13:47
[2017-07-23] MEDS: NYSTATIN SUSP 5 ML CUP PO SCH ×3 (14:00→21:46)
--- NOTE | 2017-07-23 14:05 | PN ---
Date/Time of Note Date/Time of Note DATE: 07/23/17 TIME: 14:01 Assessment/Plan VTE Prophylaxis VTE Prophylaxis Intervention: SCD's Lines/Catheters IV [facility] Urinary Cath still in place: Yes Reason Cath still needed: urinary retention Assessment/Plan Chief Complaint/Hosp Course Assessment/Plan: 76 yo F with pmhx dementia, HTN, HL, depression here with fever and rigors concerning for possible infectious source, though none has yet been elucidated. Fever now resolved. 1. sepsis- Pt with at this time culture negative sepsis which appears to be improving/resolving, given combination of headache, AMS and fever, cannot exclude prospect of bacterial meningitis. Spinal imaging without abscess. EBV serum Ab's are positive.LP ordered and attempted but could not be done 4 days ago 2/2 agitation. -cont empiric abx with ceftriaxone, vanc, and f/u infectious disease rec's - Monitor CBC and for fevers and follow-up infectious disease recommendations, per Neuro, consider doing LP under sedation. - f/u MRI brain results - [place] serologies ordered per ID [id number] final results 2. A. fib with RVR: Again patient now in sinus bradycardia rhythm. Appreciate cardiology consult, especially given patient's prior history of aortic valve replacement 4 years ago. -Continue beta-derek for now -Follow-up speech therapy and PT consults as well. 3. Early dementia: Per nursing staff and caregiver, patient's mental status appears to be more altered than normal, could be secondary to sepsis and prior A. fib with RVR, again patient appears slightly more alert today. Head CT done on July 16 was negative for any acute pathologies. -Appreciate neurology consult, again follow the recommendations and MRI of the brain Problems: Subjective 24 Hr Interval Summary Free Text/Dictation Patient a bit more alert today, seen by infectious disease team and neurology team as well as cardiology team. Still awaiting brain MRI, scheduled for later today. Exam/Review of Systems Vital Signs Vitals Vital Signs Date Time Temp Pulse Resp B/P Pulse Ox O2 Delivery O2 Flow Rate FiO2 07/23/17 11:43 98.2 59 18 178/72 100 07/23/17 10:43 Nasal Cannula 3.0 Intake and Output 07/22/17 07/22/17 07/23/17 15:00 23:00 07:00 Intake Total 1370 ml 1570 ml Output Total 400 ml 750 ml Balance 970 ml 820 ml Exam nad, lethargic, but answering basic questions no mrg lungs clear abd soft no rashes Results Result Diagram: 07/23/17 0703 07/23/17 0703 Results 24 hrs Laboratory Tests Test 07/22/17 14:58 07/22/17 15:00 07/23/17 07:03 Vancomycin Level Trough 14.6 CSF Tubes Submitted CSF Volume CSF Appearance CSF Color CSF WBC CSF RBC CSF Cell Count Tube # CSF Mononuclear Cells % (Auto) CSF Polynuclear WBCs (%) CSF Glucose CSF Total Protein White Blood Count 12.8 #H Red Blood Count 3.78 L Hemoglobin 11.5 L Hematocrit 34.5 L Mean Corpuscular Volume 91.3 Mean Corpuscular Hemoglobin 30.4 Mean Corpuscular Hemoglobin Concent 33.3 Red Cell Distribution Width 14.1 Platelet Count 144 Mean Platelet Volume 13.8 H Neutrophils % 84.4 H Lymphocytes % 4.9 L Monocytes % 6.4 Eosinophils % 2.7 Basophils % 0.3 Nucleated Red Blood Cells % 0.0 Neutrophils # 10.8 H Lymphocytes # 0.6 L Monocytes # 0.8 Eosinophils # 0.4 Basophils # 0.0 Nucleated Red Blood Cells # 0.0 Sodium Level 141 Potassium Level 3.9 Chloride Level 111 H Carbon Dioxide Level 23 Anion Gap 11 Blood Urea Nitrogen 13 Creatinine 0.66 Glucose Level 90 Calcium Level 8.6 Medications Medications Current Medications Donepezil HCl (Aricept) 10 mg DAILY PO Last administered on 07/23/17 09:30; Admin Dose 10 MG; Start 07/17/17 at 09:00 Escitalopram Oxalate (Lexapro) 10 mg DAILY PO Last administered on 07/23/17 09:29; Admin Dose 10 MG; Start 07/17/17 at 09:00 Metoprolol Tartrate (Lopressor) 25 mg BID PO Last administered on 07/23/17 09 :30; Admin Dose 25 MG; Start 07/16/17 at 21:00 Atorvastatin Calcium (Lipitor) 10 mg DAILY@21 PO Last administered on 20:17; Admin Dose 10 MG; Start 07/16/17 at 21:00 Acetaminophen (Tylenol Tab) 650 mg Q6H PRN PO PAIN LEVEL 1-3 OR FEVER Last administered on 07/19/17 16:19; Admin Dose 650 MG; Start 07/16/17 at 16:30 Acetaminophen/ Hydrocodone Bitart 1 tab 1 tab Q6H PRN PO MODERATE PAIN LEVEL 4- 6 Last administered on 07/16/17 22:39; Admin Dose 1 TAB; Start 07/16/17 at 16: 30 Ceftriaxone Sodium (Rocephin) 50 ml @ 100 mls/hr Q12H IVPB Last administered on 07/23/17 09:31; Admin Dose 100 MLS/HR; Start 07/16/17 at 20:00 Acetaminophen 650 mg 650 mg Q6H PRN [place] elevated temp Last administered on 17:56; Admin Dose 650 MG; Start 07/17/17 at 17:30 Sodium Chloride (NS) 1,000 ml @ 80 mls/hr [id number] IV Last administered on 00:04; Admin Dose 80 MLS/HR; Start 07/17/17 at 20:00 Metoprolol Tartrate 5 mg 5 mg Q5M PRN IV HR>120 Last administered on 07/19/17 16:26; Admin Dose 5 MG; Start 07/19/17 at 16:30 Diltiazem HCl 125 ml @ 5 mls/hr TITRATE IV Last administered on 07/20/17 06:40 ; Admin Dose 10 MLS/HR; Start 07/19/17 at 17:30 Vancomycin HCl/ Sodium Chloride (Vancocin/NS) 150 ml @ 75 mls/hr Q12H IVPB Last administered on 07/23/17 04:03; Admin Dose 75 MLS/HR; Start 07/22/17 at 04:00 Hydralazine HCl (Apresoline) 10 mg Q4H PRN IV ELEVATED BLOOD PRESSURE Last administered on 07/23/17 04:06; Admin Dose 10 MG; Start 07/22/17 at 15:30 Valsartan (Diovan) 40 mg BID PO Last administered on 07/23/17 09:29; Admin Dose 40 MG; Start 07/23/17 at 09:00 Nystatin (Nystatin Susp) 5 ml BID PO ; Start 07/23/17 at 14:00; Status RUSSEL CHANEY Jul 23, 2017 14:04
[2017-07-23] MEDS: ATORVASTATIN 10 MG TAB PO SCH (21:46)
[2017-07-24] VITALS (12 sets, daily range): BP systolic 151–163; BP diastolic 67–84; PULSE 54–66; RESP 16–18
[2017-07-24] MEDS: SOD CHLORIDE 0.9% 1,000 ML IV SCH ×3 (02:00→14:30)
[2017-07-24] MEDS: VANCOMYCIN 750 MG in SOD CHLORIDE 0.9% 150 ML IVPB SCH ×3 (04:05→17:08)
[2017-07-24] MEDS: hydrALAzine 20 MG INJ IV PRN ×2 (04:05→12:16)
[2017-07-24 08:04] LABS: ABNORMAL IP MESSAGE 1; BASOPHIL # 0.1 10^3/ul (0.0-0.1); BASOPHILS % 0.5 % (0.0-2.0); EOSINOPHILS # 0.4 10^3/ul (0.0-0.5); EOSINOPHILS % 3.6 % (0.0-7.0); HEMATOCRIT 35.2 % (37.0-47.0); HEMOGLOBIN 11.8 g/dl (12.0-16.0); LYMPHOCYTES # 0.7 10^3/ul (0.8-2.9); LYMPHOCYTES % 6.3 % (15.0-51.0); MEAN CORPUSCULAR HEMOGLOBIN 30.5 pg (29.0-33.0); MEAN CORPUSCULAR HGB CONC 33.5 g/dl (32.0-37.0); MEAN PLATELET VOLUME 13.9 fl (7.4-10.4); MONOCYTE # 0.8 10^3/ul (0.3-0.9); MONOCYTES % 6.8 % (0.0-11.0); NEUTROPHIL # 9.1 10^3/ul (1.6-7.5); NEUTROPHILS % 80.3 % (39.0-77.0); PLATELET COUNT 138 10^3/UL (140-415); RED BLOOD COUNT 3.87 10^6/ul (4.20-5.40); RED CELL DISTRIBUTION WIDTH 14.3 % (11.5-14.5); WHITE BLOOD COUNT 11.4 10^3/ul (4.8-10.8)
[2017-07-24 08:05] LABS: POSITIVE DIFF @See below
[2017-07-24 08:37] LABS: CALCIUM 8.8 mg/dl (8.4-10.2); CREATININE 0.65 mg/dl (0.44-1.00); POTASSIUM 3.6 mmol/L (3.5-5.1)
[2017-07-24] MEDS: CEFTRIAXONE 2 GM/50 ML (PMX) 50 ML IVPB SCH ×2 (09:13→20:08)
[2017-07-24] MEDS: DONEPEZIL 10 MG TAB PO SCH (09:14)
[2017-07-24] MEDS: ESCITALOPRAM 10 MG TAB PO SCH (09:15)
[2017-07-24] MEDS: VALSARTAN 80 MG TAB PO SCH ×2 (09:15→20:54)
[2017-07-24] MEDS: BALSAM PERU/CASTOR OIL 60 GM TUBE TOP SCH (09:16)
[2017-07-24] MEDS: METOPROLOL 25 MG TAB PO SCH ×2 (09:16→20:54)
[2017-07-24] MEDS: NYSTATIN SUSP 5 ML CUP PO SCH ×2 (09:16→20:53)
--- NOTE | 2017-07-24 14:10 | PN ---
Date/Time of Note Date/Time of Note DATE: 07/24/17 TIME: 14:05 Assessment/Plan VTE Prophylaxis VTE Prophylaxis Intervention: SCD's Lines/Catheters IV Catheter Type (from Nrs): Peripheral IV Urinary Cath still in place: Yes Reason Cath still needed: urinary retention Assessment/Plan Chief Complaint/Hosp Course Assessment/Plan: 76 yo F with pmhx dementia, HTN, HL, depression here with fever and rigors concerning for possible infectious source, though none has yet been elucidated. Fever now resolved. 1. sepsis- Pt with at this time culture negative sepsis which appears to be improving/resolving, given combination of headache, AMS and fever, cannot exclude prospect of bacterial meningitis. Spinal imaging without abscess. EBV serum Ab's are positive (IgM and IgG), as well as + West Nile virus serology (+ IgM). LP ordered and attempted but could not be done 5 days ago 2/2 agitation. -cont empiric abx with ceftriaxone, vanc, and f/u infectious disease rec's - Monitor CBC and for fevers and follow-up infectious disease recommendations , per Neuro, consider doing LP under sedation. - f/u MRI brain results 2. A. fib with RVR: Again patient now in sinus bradycardia rhythm. Appreciate cardiology consult, especially given patient's prior history of aortic valve replacement 4 years ago. -Continue beta-derek for now -Follow-up speech therapy and PT consults as well. 3. Early dementia: Per nursing staff and caregiver, patient's mental status appears to be more altered than normal, could be secondary to sepsis and prior A. fib with RVR, as well as her + west nile and EBV serologies. Head CT done on July 16 was negative for any acute pathologies. -Appreciate neurology consult, again follow the recommendations and MRI of the brain Problems: Subjective 24 Hr Interval Summary Free Text/Dictation Patient complaining of dry mouth. No acute events overnight. Blood test serologies came back positive for West Nile virus (+ IgM ab). MRI brain still not performed for unclear reasons. Exam/Review of Systems Vital Signs Vitals Vital Signs Date Time Temp Pulse Resp B/P Pulse Ox O2 Delivery O2 Flow Rate FiO2 07/24/17 12:16 58 07/24/17 12:15 163/70 07/24/17 11:54 98.2 18 98 07/24/17 09:15 Nasal Cannula 3.0 Intake and Output 07/23/17 07/23/17 07/24/17 15:00 23:00 07:00 Intake Total 390 ml 1200 ml Output Total 300 ml 300 ml Balance 90 ml 900 ml Exam nad, lethargic, but answering basic questions no mrg lungs clear abd soft no rashes Results Result Diagram: 07/24/17 0736 07/24/17 0736 Results 24 hrs Laboratory Tests Test 07/24/17 07:36 White Blood Count 11.4 H Red Blood Count 3.87 L Hemoglobin 11.8 L Hematocrit 35.2 L Mean Corpuscular Volume 91.0 Mean Corpuscular Hemoglobin 30.5 Mean Corpuscular Hemoglobin Concent 33.5 Red Cell Distribution Width 14.3 Platelet Count 138 L Mean Platelet Volume 13.9 H Neutrophils % 80.3 H Lymphocytes % 6.3 L Monocytes % 6.8 Eosinophils % 3.6 Basophils % 0.5 Nucleated Red Blood Cells % 0.0 Neutrophils # 9.1 H Lymphocytes # 0.7 L Monocytes # 0.8 Eosinophils # 0.4 Basophils # 0.1 Nucleated Red Blood Cells # 0.0 Sodium Level 139 Potassium Level 3.6 Chloride Level 108 Carbon Dioxide Level 23 Anion Gap 12 Blood Urea Nitrogen 13 Creatinine 0.65 Glucose Level 84 Calcium Level 8.8 Medications Medications Current Medications Donepezil HCl (Aricept) 10 mg DAILY PO Last administered on 07/24/17 09:14; Admin Dose 10 MG; Start 07/17/17 at 09:00 Escitalopram Oxalate (Lexapro) 10 mg DAILY PO Last administered on 07/24/17 09:15; Admin Dose 10 MG; Start 07/17/17 at 09:00 Metoprolol Tartrate (Lopressor) 25 mg BID PO Last administered on 07/24/17 09 :16; Admin Dose 25 MG; Start 07/16/17 at 21:00 Atorvastatin Calcium (Lipitor) 10 mg DAILY@21 PO Last administered on 21:46; Admin Dose 10 MG; Start 07/16/17 at 21:00 Acetaminophen (Tylenol Tab) 650 mg Q6H PRN PO PAIN LEVEL 1-3 OR FEVER Last administered on 07/19/17 16:19; Admin Dose 650 MG; Start 07/16/17 at 16:30 Acetaminophen/ Hydrocodone Bitart 1 tab 1 tab Q6H PRN PO MODERATE PAIN LEVEL 4- 6 Last administered on 07/16/17 22:39; Admin Dose 1 TAB; Start 07/16/17 at 16: 30 Ceftriaxone Sodium (Rocephin) 50 ml @ 100 mls/hr Q12H IVPB Last administered on 07/24/17 09:13; Admin Dose 100 MLS/HR; Start 07/16/17 at 20:00 Acetaminophen 650 mg 650 mg Q6H PRN [place] elevated temp Last administered on 17:56; Admin Dose 650 MG; Start 07/17/17 at 17:30 Sodium Chloride (NS) 1,000 ml @ 80 mls/hr [id number] IV Last administered on 12:16; Admin Dose 80 MLS/HR; Start 07/17/17 at 20:00 Metoprolol Tartrate 5 mg 5 mg Q5M PRN IV HR>120 Last administered on 07/19/17 16:26; Admin Dose 5 MG; Start 07/19/17 at 16:30 Diltiazem HCl 125 ml @ 5 mls/hr TITRATE IV Last administered on 07/20/17 06:40 ; Admin Dose 10 MLS/HR; Start 07/19/17 at 17:30 Vancomycin HCl/ Sodium Chloride (Vancocin/NS) 150 ml @ 75 mls/hr Q12H IVPB Last administered on 07/24/17 04:05; Admin Dose 75 MLS/HR; Start 07/22/17 at 04:00 Hydralazine HCl (Apresoline) 10 mg Q4H PRN IV ELEVATED BLOOD PRESSURE Last administered on 07/24/17 12:16; Admin Dose 10 MG; Start 07/22/17 at 15:30 Valsartan (Diovan) 40 mg BID PO Last administered on 07/24/17 09:15; Admin Dose 40 MG; Start 07/23/17 at 09:00 Nystatin (Nystatin Susp) 5 ml BID PO Last administered on 07/24/17 09:16; Admin Dose 5 ML; Start 07/23/17 at 14:00 Miscellaneous Information (*Rx Drug Level Order Reminder*) 1 ONCE ONCE XX ; Start 07/25/17 at 03:00; Stop 07/25/17 at 03:01 RUSSEL HOLDER Jul 24, 2017 14:10
--- NOTE | 2017-07-24 14:17 | CONS ---
Date/Time of Note Date/Time of Note DATE: 07/24/17 TIME: 14:12 Consult Date/Type/Reason Admit Date/Time Jul 18, 2017 at 10:11 Type of Consultation: ID Ordering Provider: RUSSEL HOLDER Objective Vital Signs Date Time Temp Pulse Resp B/P Pulse Ox O2 Delivery O2 Flow Rate FiO2 07/24/17 12:16 58 07/24/17 12:15 163/70 07/24/17 11:54 98.2 18 98 07/24/17 09:15 Nasal Cannula 3.0 Intake and Output 07/23/17 07/23/17 07/24/17 15:00 23:00 07:00 Intake Total 390 ml 1200 ml Output Total 300 ml 300 ml Balance 90 ml 900 ml Results/Medications Result Diagram: 07/24/17 0736 07/24/17 0736 Results 24 hrs Laboratory Tests Test 07/24/17 07:36 White Blood Count 11.4 H Red Blood Count 3.87 L Hemoglobin 11.8 L Hematocrit 35.2 L Mean Corpuscular Volume 91.0 Mean Corpuscular Hemoglobin 30.5 Mean Corpuscular Hemoglobin Concent 33.5 Red Cell Distribution Width 14.3 Platelet Count 138 L Mean Platelet Volume 13.9 H Neutrophils % 80.3 H Lymphocytes % 6.3 L Monocytes % 6.8 Eosinophils % 3.6 Basophils % 0.5 Nucleated Red Blood Cells % 0.0 Neutrophils # 9.1 H Lymphocytes # 0.7 L Monocytes # 0.8 Eosinophils # 0.4 Basophils # 0.1 Nucleated Red Blood Cells # 0.0 Sodium Level 139 Potassium Level 3.6 Chloride Level 108 Carbon Dioxide Level 23 Anion Gap 12 Blood Urea Nitrogen 13 Creatinine 0.65 Glucose Level 84 Calcium Level 8.8 Medications Current Medications Donepezil HCl (Aricept) 10 mg DAILY PO Last administered on 07/24/17 09:14; Admin Dose 10 MG; Start 07/17/17 at 09:00 Escitalopram Oxalate (Lexapro) 10 mg DAILY PO Last administered on 07/24/17 09:15; Admin Dose 10 MG; Start 07/17/17 at 09:00 Metoprolol Tartrate (Lopressor) 25 mg BID PO Last administered on 07/24/17 09 :16; Admin Dose 25 MG; Start 07/16/17 at 21:00 Atorvastatin Calcium (Lipitor) 10 mg DAILY@21 PO Last administered on 21:46; Admin Dose 10 MG; Start 07/16/17 at 21:00 Acetaminophen (Tylenol Tab) 650 mg Q6H PRN PO PAIN LEVEL 1-3 OR FEVER Last administered on 07/19/17 16:19; Admin Dose 650 MG; Start 07/16/17 at 16:30 Acetaminophen/ Hydrocodone Bitart 1 tab 1 tab Q6H PRN PO MODERATE PAIN LEVEL 4- 6 Last administered on 07/16/17 22:39; Admin Dose 1 TAB; Start 07/16/17 at 16: 30 Ceftriaxone Sodium (Rocephin) 50 ml @ 100 mls/hr Q12H IVPB Last administered on 07/24/17 09:13; Admin Dose 100 MLS/HR; Start 07/16/17 at 20:00 Acetaminophen 650 mg 650 mg Q6H PRN [place] elevated temp Last administered on 17:56; Admin Dose 650 MG; Start 07/17/17 at 17:30 Sodium Chloride (NS) 1,000 ml @ 80 mls/hr [id number] IV Last administered on 12:16; Admin Dose 80 MLS/HR; Start 07/17/17 at 20:00 Metoprolol Tartrate 5 mg 5 mg Q5M PRN IV HR>120 Last administered on 07/19/17 16:26; Admin Dose 5 MG; Start 07/19/17 at 16:30 Diltiazem HCl 125 ml @ 5 mls/hr TITRATE IV Last administered on 07/20/17 06:40 ; Admin Dose 10 MLS/HR; Start 07/19/17 at 17:30 Vancomycin HCl/ Sodium Chloride (Vancocin/NS) 150 ml @ 75 mls/hr Q12H IVPB Last administered on 07/24/17 04:05; Admin Dose 75 MLS/HR; Start 07/22/17 at 04:00 Hydralazine HCl (Apresoline) 10 mg Q4H PRN IV ELEVATED BLOOD PRESSURE Last administered on 07/24/17 12:16; Admin Dose 10 MG; Start 07/22/17 at 15:30 Valsartan (Diovan) 40 mg BID PO Last administered on 07/24/17 09:15; Admin Dose 40 MG; Start 07/23/17 at 09:00 Nystatin (Nystatin Susp) 5 ml BID PO Last administered on 07/24/17 09:16; Admin Dose 5 ML; Start 07/23/17 at 14:00 Miscellaneous Information (*Rx Drug Level Order Reminder*) 1 ONCE ONCE XX ; Start 07/25/17 at 03:00; Stop 07/25/17 at 03:01 Assessment/Plan Chief Complaint/Hosp Course SUBJECTIVE: No acute changes. The patient is sleeping, afebrile. ANTIMICROBIALS: Vancomycin and Rocephin. MICROBIOLOGY: Blood cultures and urine cultures since admission negative. PHYSICAL EXAMINATION: GENERAL: This is a fragile, elderly woman who is lethargic, in no distress. HEENT: Head atraumatic, normocephalic. Sclerae anicteric. Buccal mucosa dry. NECK: Supple, trachea midline. CHEST: Rise symmetrical. Breath sounds diminished to bases. HEART: S1, S2. ABDOMEN: Soft, bowel tones present. EXTREMITIES: Without cyanosis. ASSESSMENT: 1. Sepsis with fevers, leukocytosis and acute encephalopathy on admission. 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 History of coronary artery bypass graft and valve replacement. 4. Alzheimer dementia. 5. History of cervical fusion, no evidence of infectious process per spinal CT. Plan: Remains unchanged, will complete abx for 2 more days, continue aspiration precautions, f/u neurology rec-s. [facility] staff Problems: KARIS FORMAN NP Jul 24, 2017 14:17
--- NOTE | 2017-07-24 15:53 | RADRPT ---
Vent Rate: 146 bpm RR Interval: 0 msec AR Interval: 0 msec QRS Duration: 78 msec QT Interval: 314 msec QTC Interval: 489 msec P-R-T [place]: 0 - 61 - 0 degrees Atrial fibrillation with rapid ventricular response with premature ventricular or aberrantly conducted complexes Marked ST abnormality, possible inferior subendocardial injury Marked ST abnormality, possible anterior subendocardial injury Abnormal ECG Electronically Signed By: Enrique Pedroza [id number]
--- NOTE | 2017-07-24 16:17 | RADRPT ---
PROCEDURE: MRI Brain without contrast. CLINICAL INDICATION: Weakness, fever, encephalopathy. TECHNIQUE: An MRI of the brain was performed utilizing the following sequences: Sagittal and axial T1 weighted, axial T2 weighted, axial diffusion weighted with ADC mapping, coronal GRE, and axial F LAIR. COMPARISON: Brain CT 07/17/2017. FINDINGS: No diffusion weighted abnormalities are seen to suggest the presence of acute ischemia or recent inf arct. No hypointense signal abnormalities are seen on the GRE images to suggest the presence of blo od degradation products. There is no evidence of intracranial hemorrhage, mass effect, or midline s hift. No extra-axial fluid collections are seen. The ventricles and sulci are mildly to moderately e nlarged indicative of volume loss. There are mild to moderate foci of T2 FLAIR hyperintensity in the periventricular, deep, and subcort ical white matter, which are nonspecific in etiology but likely reflect chronic small vessel ischemi c changes. No abnormal intracranial vascular flow void is noted. The visualized paranasal sinuses are grossly clear. There is thinning of bilateral lens indicative of prior lens replacement. IMPRESSION: 1. No acute intracranial hemorrhage, infarction or mass. 2. Mild to moderate nonspecific white matter signal abnormality which may represent chronic small v essel ischemic changes. 3. Mild to moderate generalized cerebral and mild cerebellar volume loss. RPTAT: JJ .Nikki Mcqueen MD, MD Date Time Electronically viewed and signed by .Nikki Mcqueen MD, MD on 07/24/2017 16:16 .N/
--- NOTE | 2017-07-24 17:13 | CONS ---
Date/Time of Note Date/Time of Note DATE: 07/24/17 TIME: 17:09 Assessment/Plan Assessment/Plan Chief Complaint/Hosp Course Altered mental status Problems: Additional Assessment/Plan 76 yo female with hx of dementia, CAD s/p CABG admitted with fevers/ leukocytosis unclear source improving on abx- Ceftriaxone, Vancomycin, unable to tolerate LP x2. CTH unrevealing for acute process. MRI of the brain showed bihemispheric chronic white matter disease, nothing acute Recommend: unable to tolerate LP due to agitation, WBC elevated 12.8 today consider LP under sedation WNV sent result is pending, blood cultures negative x2 will follow Consultation Date/Type/Reason Admit Date/Time Jul 18, 2017 at 10:11 Initial Consult Date 07/22/17 Type of Consultation: ID Reason for Consultation Altered mental status Referring Provider: RUSSEL HOLDER 24 HR Interval Summary Free Text/Dictation Clinically unchanged. MRI of the brain did not show anything acute. Exam/Review of Systems Vital Signs Vitals Vital Signs Date Time Temp Pulse Resp B/P Pulse Ox O2 Delivery O2 Flow Rate FiO2 07/24/17 16:30 65 07/24/17 13:00 157/67 07/24/17 11:54 98.2 18 98 07/24/17 09:15 Nasal Cannula 3.0 Intake and Output 07/23/17 07/23/17 07/24/17 15:00 23:00 07:00 Intake Total 390 ml 1200 ml Output Total 300 ml 300 ml Balance 90 ml 900 ml Exam Constitutional: alert, other (Confused) Psych: no complaints Head: atraumatic, normocephalic Eyes: EOMI, nl conjunctiva, nl lids, nl sclera ENMT: mucosa pink and moist, nl external ears & nose, nl lips & teeth, nl nasal mucosa & septum Neck: non-tender, supple Cardiovascular: nl pulses, regular rate and rhythm Gastrointestinal: nl liver, spleen, non-tender, soft Neurological: HOG OPERATOR II-XII intact, nl speech Results Result Diagram: 07/24/17 0736 07/24/17 0736 Results 24 hrs Laboratory Tests Test 07/24/17 07:36 White Blood Count 11.4 H Red Blood Count 3.87 L Hemoglobin 11.8 L Hematocrit 35.2 L Mean Corpuscular Volume 91.0 Mean Corpuscular Hemoglobin 30.5 Mean Corpuscular Hemoglobin Concent 33.5 Red Cell Distribution Width 14.3 Platelet Count 138 L Mean Platelet Volume 13.9 H Neutrophils % 80.3 H Lymphocytes % 6.3 L Monocytes % 6.8 Eosinophils % 3.6 Basophils % 0.5 Nucleated Red Blood Cells % 0.0 Neutrophils # 9.1 H Lymphocytes # 0.7 L Monocytes # 0.8 Eosinophils # 0.4 Basophils # 0.1 Nucleated Red Blood Cells # 0.0 Sodium Level 139 Potassium Level 3.6 Chloride Level 108 Carbon Dioxide Level 23 Anion Gap 12 Blood Urea Nitrogen 13 Creatinine 0.65 Glucose Level 84 Calcium Level 8.8 Medications Medications Current Medications Donepezil HCl (Aricept) 10 mg DAILY PO Last administered on 07/24/17 09:14; Admin Dose 10 MG; Start 07/17/17 at 09:00 Escitalopram Oxalate (Lexapro) 10 mg DAILY PO Last administered on 07/24/17 09:15; Admin Dose 10 MG; Start 07/17/17 at 09:00 Metoprolol Tartrate (Lopressor) 25 mg BID PO Last administered on 07/24/17 09 :16; Admin Dose 25 MG; Start 07/16/17 at 21:00 Atorvastatin Calcium (Lipitor) 10 mg DAILY@21 PO Last administered on 21:46; Admin Dose 10 MG; Start 07/16/17 at 21:00 Acetaminophen (Tylenol Tab) 650 mg Q6H PRN PO PAIN LEVEL 1-3 OR FEVER Last administered on 07/19/17 16:19; Admin Dose 650 MG; Start 07/16/17 at 16:30 Acetaminophen/ Hydrocodone Bitart 1 tab 1 tab Q6H PRN PO MODERATE PAIN LEVEL 4- 6 Last administered on 07/16/17 22:39; Admin Dose 1 TAB; Start 07/16/17 at 16: 30 Ceftriaxone Sodium (Rocephin) 50 ml @ 100 mls/hr Q12H IVPB Last administered on 07/24/17 09:13; Admin Dose 100 MLS/HR; Start 07/16/17 at 20:00; Stop 07/26 at 14:17 Acetaminophen 650 mg 650 mg Q6H PRN [place] elevated temp Last administered on 17:56; Admin Dose 650 MG; Start 07/17/17 at 17:30 Sodium Chloride (NS) 1,000 ml @ 80 mls/hr [id number] IV Last administered on 12:16; Admin Dose 80 MLS/HR; Start 07/17/17 at 20:00 Metoprolol Tartrate 5 mg 5 mg Q5M PRN IV HR>120 Last administered on 07/19/17 16:26; Admin Dose 5 MG; Start 07/19/17 at 16:30 Diltiazem HCl 125 ml @ 5 mls/hr TITRATE IV Last administered on 07/20/17 06:40 ; Admin Dose 10 MLS/HR; Start 07/19/17 at 17:30 Vancomycin HCl/ Sodium Chloride (Vancocin/NS) 150 ml @ 75 mls/hr Q12H IVPB Last administered on 07/24/17 17:08; Admin Dose 75 MLS/HR; Start 07/22/17 at 04:00; Stop 07/26/17 at 14:17 Hydralazine HCl (Apresoline) 10 mg Q4H PRN IV ELEVATED BLOOD PRESSURE Last administered on 07/24/17 12:16; Admin Dose 10 MG; Start 07/22/17 at 15:30 Valsartan (Diovan) 40 mg BID PO Last administered on 07/24/17 09:15; Admin Dose 40 MG; Start 07/23/17 at 09:00 Nystatin (Nystatin Susp) 5 ml BID PO Last administered on 07/24/17 09:16; Admin Dose 5 ML; Start 07/23/17 at 14:00 Miscellaneous Information (*Rx Drug Level Order Reminder*) 1 ONCE ONCE XX ; Start 07/25/17 at 03:00; Stop 07/25/17 at 03:01 Procedures Procedures MRI of the brain 07/24/2017 IMPRESSION: 1. No acute intracranial hemorrhage, infarction or mass. 2. Mild to moderate nonspecific white matter signal abnormality which may represent chronic small vessel ischemic changes. 3. Mild to moderate generalized cerebral and mild cerebellar volume loss. RPTAT: JJ .Nikki Mcqueen MD, MD Date Time Electronically viewed and signed by .Nikki Mcqueen MD, on 07/24/2017 16:16 CARLA AGARWAL MD Jul 24, 2017 17:13
--- NOTE | 2017-07-24 17:40 | CONS ---
Date/Time of Note Date/Time of Note DATE: 07/24/17 TIME: 17:38 Consult Date/Type/Reason Admit Date/Time Jul 18, 2017 at 10:11 Type of Consultation: card Ordering Provider: RUSSEL HOLDER Subjective card f/u note: S: Discussed with the staff and rhythm strip was reviewed. Patient remains in normal sinus rhythm. No atrial fibrillation noted overnight No reports of chest pain or pressure or palpitation. O: General: no acute distress HEENT: NC/AT. pupils are equal. round. NECK: NO JVD. no stridor. CV: RRR. systolic murmur; no gallop or rubs. PULM: no wheezing or rhonchi. GI: SOFT, NT, ND, no rebound or guarding Extremity: trace B/L LE edema. no clubbing. neuro: awake and alert, OX1 at least . Psych: calm but depressed mood rectal: deferred echo reviewed: 1. Normal left ventricular systolic function. Normal left ventricular cavity size. Mild concentric left ventricular hypertrophy. Ejection fraction is visually estimated at 65 %. Abnormal Diastolic Function. 2. There is mild enlargement of left atrium. 3. Mild mitral leaflet calcification. Mild mitral annular calcification. Mild mitral valve regurgitation. 4. Aortic valve not well visualized. Aortic Valve Bio Prosthesis. Aortic valve Max velocity 3.07 m/sec. Max PG 38.00 mmHg. Mean PG 20.00 mmHg. 5. Normal appearance of the tricuspid valve. Estimated peak PA systolic pressure 53 mmHg. There is mild tricuspid regurgitation. Objective Vital Signs Date Time Temp Pulse Resp B/P Pulse Ox O2 Delivery O2 Flow Rate FiO2 07/24/17 16:30 65 07/24/17 13:00 157/67 07/24/17 11:54 98.2 18 98 07/24/17 09:15 Nasal Cannula 3.0 Intake and Output 07/23/17 07/23/17 07/24/17 15:00 23:00 07:00 Intake Total 390 ml 1200 ml Output Total 300 ml 300 ml Balance 90 ml 900 ml Results/Medications Result Diagram: 07/24/17 0736 07/24/17 0736 Results 24 hrs Laboratory Tests Test 07/24/17 07:36 White Blood Count 11.4 H Red Blood Count 3.87 L Hemoglobin 11.8 L Hematocrit 35.2 L Mean Corpuscular Volume 91.0 Mean Corpuscular Hemoglobin 30.5 Mean Corpuscular Hemoglobin Concent 33.5 Red Cell Distribution Width 14.3 Platelet Count 138 L Mean Platelet Volume 13.9 H Neutrophils % 80.3 H Lymphocytes % 6.3 L Monocytes % 6.8 Eosinophils % 3.6 Basophils % 0.5 Nucleated Red Blood Cells % 0.0 Neutrophils # 9.1 H Lymphocytes # 0.7 L Monocytes # 0.8 Eosinophils # 0.4 Basophils # 0.1 Nucleated Red Blood Cells # 0.0 Sodium Level 139 Potassium Level 3.6 Chloride Level 108 Carbon Dioxide Level 23 Anion Gap 12 Blood Urea Nitrogen 13 Creatinine 0.65 Glucose Level 84 Calcium Level 8.8 Medications Current Medications Donepezil HCl (Aricept) 10 mg DAILY PO Last administered on 07/24/17 09:14; Admin Dose 10 MG; Start 07/17/17 at 09:00 Escitalopram Oxalate (Lexapro) 10 mg DAILY PO Last administered on 07/24/17 09:15; Admin Dose 10 MG; Start 07/17/17 at 09:00 Metoprolol Tartrate (Lopressor) 25 mg BID PO Last administered on 07/24/17 09 :16; Admin Dose 25 MG; Start 07/16/17 at 21:00 Atorvastatin Calcium (Lipitor) 10 mg DAILY@21 PO Last administered on 21:46; Admin Dose 10 MG; Start 07/16/17 at 21:00 Acetaminophen (Tylenol Tab) 650 mg Q6H PRN PO PAIN LEVEL 1-3 OR FEVER Last administered on 07/19/17 16:19; Admin Dose 650 MG; Start 07/16/17 at 16:30 Acetaminophen/ Hydrocodone Bitart 1 tab 1 tab Q6H PRN PO MODERATE PAIN LEVEL 4- 6 Last administered on 07/16/17 22:39; Admin Dose 1 TAB; Start 07/16/17 at 16: 30 Ceftriaxone Sodium (Rocephin) 50 ml @ 100 mls/hr Q12H IVPB Last administered on 07/24/17 09:13; Admin Dose 100 MLS/HR; Start 07/16/17 at 20:00; Stop 07/26 at 14:17 Acetaminophen 650 mg 650 mg Q6H PRN [place] elevated temp Last administered on 17:56; Admin Dose 650 MG; Start 07/17/17 at 17:30 Sodium Chloride (NS) 1,000 ml @ 80 mls/hr [id number] IV Last administered on 12:16; Admin Dose 80 MLS/HR; Start 07/17/17 at 20:00 Metoprolol Tartrate 5 mg 5 mg Q5M PRN IV HR>120 Last administered on 07/19/17 16:26; Admin Dose 5 MG; Start 07/19/17 at 16:30 Diltiazem HCl 125 ml @ 5 mls/hr TITRATE IV Last administered on 07/20/17 06:40 ; Admin Dose 10 MLS/HR; Start 07/19/17 at 17:30 Vancomycin HCl/ Sodium Chloride (Vancocin/NS) 150 ml @ 75 mls/hr Q12H IVPB Last administered on 07/24/17 17:08; Admin Dose 75 MLS/HR; Start 07/22/17 at 04:00; Stop 07/26/17 at 14:17 Hydralazine HCl (Apresoline) 10 mg Q4H PRN IV ELEVATED BLOOD PRESSURE Last administered on 07/24/17 12:16; Admin Dose 10 MG; Start 07/22/17 at 15:30 Valsartan (Diovan) 40 mg BID PO Last administered on 07/24/17 09:15; Admin Dose 40 MG; Start 07/23/17 at 09:00 Nystatin (Nystatin Susp) 5 ml BID PO Last administered on 07/24/17 09:16; Admin Dose 5 ML; Start 07/23/17 at 14:00 Miscellaneous Information (*Rx Drug Level Order Reminder*) 1 ONCE ONCE XX ; Start 07/25/17 at 03:00; Stop 07/25/17 at 03:01 Assessment/Plan Chief Complaint/Hosp Course 1. Sepsis infection, etiology unclear. An LP could not be done unfortunately. Antibiotic as per ID recommendation. 2. Paroxysmal atrial fibrillation with rapid ventricular response, currently back to sinus rhythm. 3. History of hypertension. 4. History of aortic valve replacement with bioprosthetic aortic valve. 5. Memory impairment and dementia. 6. Encephalopathy. 7. Hypertension. 8. Tachybrady. 9. hypo K : replaced now RECOMMENDATIONS: Antibiotic is managed as per ID recommendation. I will cont the patient on metoprolol as tolerated. Potassium level, electrolytes to be corrected as needed. will inc ARB Thank you for this referral. We will continue to follow along with you on as needed basis over the weekend. LEO ARELLANO MD [facility] Problems: LEO ARELLANO MD Jul 24, 2017 17:40
[2017-07-24] MEDS: ATORVASTATIN 10 MG TAB PO SCH (20:54)
[2017-07-25] VITALS (13 sets, daily range): BP systolic 148–203; BP diastolic 64–84; PULSE 62–68; RESP 17–21
[2017-07-25 03:12] LABS: ABNORMAL IP MESSAGE 1; BASOPHILS % 0.3 % (0.0-2.0); EOSINOPHILS # 0.4 10^3/ul (0.0-0.5); EOSINOPHILS % 4.2 % (0.0-7.0); HEMATOCRIT 32.1 % (37.0-47.0); HEMOGLOBIN 10.8 g/dl (12.0-16.0); LYMPHOCYTES # 0.9 10^3/ul (0.8-2.9); LYMPHOCYTES % 9.5 % (15.0-51.0); MEAN CORPUSCULAR HEMOGLOBIN 30.3 pg (29.0-33.0); MEAN CORPUSCULAR HGB CONC 33.6 g/dl (32.0-37.0); MEAN CORPUSCULAR VOLUME 89.9 fl (82.0-101.0); MEAN PLATELET VOLUME 13.3 fl (7.4-10.4); MONOCYTE # 0.9 10^3/ul (0.3-0.9); MONOCYTES % 9.2 % (0.0-11.0); NEUTROPHIL # 7.1 10^3/ul (1.6-7.5); NEUTROPHILS % 74.6 % (39.0-77.0); PLATELET COUNT 155 10^3/UL (140-415); RED BLOOD COUNT 3.57 10^6/ul (4.20-5.40); RED CELL DISTRIBUTION WIDTH 14.2 % (11.5-14.5); WHITE BLOOD COUNT 9.5 10^3/ul (4.8-10.8)
[2017-07-25] MEDS: SOD CHLORIDE 0.9% 1,000 ML IV SCH ×3 (03:35→22:57)
[2017-07-25 03:45] LABS: POSITIVE DIFF @See below
[2017-07-25 04:04] LABS: CALCIUM 8.2 mg/dl (8.4-10.2); CREATININE 0.61 mg/dl (0.44-1.00); POTASSIUM 3.4 mmol/L (3.5-5.1)
[2017-07-25] MEDS: VANCOMYCIN 750 MG in SOD CHLORIDE 0.9% 150 ML IVPB SCH ×2 (04:30→16:43)
[2017-07-25] MEDS: hydrALAzine 20 MG INJ IV PRN ×3 (07:23→12:19)
[2017-07-25] MEDS: DONEPEZIL 10 MG TAB PO SCH (08:42)
[2017-07-25] MEDS: VALSARTAN 80 MG TAB PO SCH ×2 (08:42→21:08)
[2017-07-25] MEDS: CEFTRIAXONE 2 GM/50 ML (PMX) 50 ML IVPB SCH (08:42)
[2017-07-25] MEDS: METOPROLOL 25 MG TAB PO SCH (08:43)
[2017-07-25] MEDS: ESCITALOPRAM 10 MG TAB PO SCH (08:43)
[2017-07-25] MEDS: NYSTATIN SUSP 5 ML CUP PO SCH ×2 (08:44→21:08)
[2017-07-25] MEDS: BALSAM PERU/CASTOR OIL 60 GM TUBE TOP SCH (08:44)
[2017-07-25] MEDS ORDERED: POTASSIUM CHLORIDE (SR) 20 MEQ TAB PO STA (10:36)
--- NOTE | 2017-07-25 10:42 | CONS ---
Date/Time of Note Date/Time of Note DATE: 07/25/17 TIME: 10:39 Assessment/Plan Assessment/Plan Chief Complaint/Hosp Course 1. Sepsis infection, etiology unclear. An LP could not be done unfortunately. Antibiotic as per ID recommendation. 2. Paroxysmal atrial fibrillation with rapid ventricular response, currently back to sinus rhythm. 3. History of hypertension. 4. History of aortic valve replacement with bioprosthetic aortic valve. 5. Memory impairment and dementia. 6. Encephalopathy. 7. Hypertension. 8. Tachybrady. 9. Hypokalemia Problems: Additional Assessment/Plan 1) will replete K 2) will increase beta derek and valsartan with holding parameters 3) will add amlodipine 2.5 daily with holding parameters Consultation Date/Type/Reason Admit Date/Time Jul 18, 2017 at 10:11 Initial Consult Date 07/22/17 Type of Consultation: card Referring Provider: RUSSEL HOLDER 24 HR Interval Summary Free Text/Dictation called for HTN out of control, no chest pain, no sob, no palpitations Detailed Summary ENT: no complaints Respiratory: no complaints Cardiovascular: no complaints Gastrointestinal: no complaints Musculoskeletal: no complaints Skin: no complaints Neurologic: no complaints Endocrine: no complaints Lymphatic: no complaints Exam/Review of Systems Vital Signs Vitals Vital Signs Date Time Temp Pulse Resp B/P Pulse Ox O2 Delivery O2 Flow Rate FiO2 07/25/17 08:00 66 07/25/17 07:58 166/72 07/25/17 07:33 97.6 21 97 07/24/17 20:00 Nasal Cannula 3.0 Intake and Output 07/24/17 07/24/17 07/25/17 15:00 23:00 07:00 Intake Total 350 ml 1120 ml Output Total 400 ml 500 ml Balance -50 ml 620 ml Exam Constitutional: frail Head: atraumatic, normocephalic Neck: supple Respiratory: clear to auscultation Cardiovascular: regular rate and rhythm Gastrointestinal: soft Musculoskeletal: nl extremities to inspection Extremities: normal pulses Results Result Diagram: 07/25/17 0234 07/25/17 0234 Results 24 hrs Laboratory Tests Test 07/25/17 02:34 White Blood Count 9.5 Red Blood Count 3.57 L Hemoglobin 10.8 L Hematocrit 32.1 L Mean Corpuscular Volume 89.9 Mean Corpuscular Hemoglobin 30.3 Mean Corpuscular Hemoglobin Concent 33.6 Red Cell Distribution Width 14.2 Platelet Count 155 Mean Platelet Volume 13.3 H Neutrophils % 74.6 Lymphocytes % 9.5 L Monocytes % 9.2 Eosinophils % 4.2 Basophils % 0.3 Nucleated Red Blood Cells % 0.0 Neutrophils # 7.1 Lymphocytes # 0.9 Monocytes # 0.9 Eosinophils # 0.4 Basophils # 0.0 Nucleated Red Blood Cells # 0.0 Sodium Level 140 Potassium Level 3.4 L Chloride Level 110 Carbon Dioxide Level 22 Anion Gap 11 Blood Urea Nitrogen 13 Creatinine 0.61 Glucose Level 80 Calcium Level 8.2 L Vancomycin Level Trough 17.4 Medications Medications Current Medications Donepezil HCl (Aricept) 10 mg DAILY PO Last administered on 07/25/17 08:42; Admin Dose 10 MG; Start 07/17/17 at 09:00 Escitalopram Oxalate (Lexapro) 10 mg DAILY PO Last administered on 07/25/17 08:43; Admin Dose 10 MG; Start 07/17/17 at 09:00 Metoprolol Tartrate (Lopressor) 25 mg BID PO Last administered on 07/25/17 08 :43; Admin Dose 25 MG; Start 07/16/17 at 21:00 Atorvastatin Calcium (Lipitor) 10 mg DAILY@21 PO Last administered on 20:54; Admin Dose 10 MG; Start 07/16/17 at 21:00 Acetaminophen (Tylenol Tab) 650 mg Q6H PRN PO PAIN LEVEL 1-3 OR FEVER Last administered on 07/19/17 16:19; Admin Dose 650 MG; Start 07/16/17 at 16:30 Acetaminophen/ Hydrocodone Bitart 1 tab 1 tab Q6H PRN PO MODERATE PAIN LEVEL 4- 6 Last administered on 07/16/17 22:39; Admin Dose 1 TAB; Start 07/16/17 at 16: 30 Ceftriaxone Sodium (Rocephin) 50 ml @ 100 mls/hr Q12H IVPB Last administered on 07/25/17 08:42; Admin Dose 100 MLS/HR; Start 07/16/17 at 20:00; Stop 07/26 at 14:17 Acetaminophen 650 mg 650 mg Q6H PRN [place] elevated temp Last administered on 17:56; Admin Dose 650 MG; Start 07/17/17 at 17:30 Sodium Chloride (NS) 1,000 ml @ 80 mls/hr [id number] IV Last administered on 03:35; Admin Dose 80 MLS/HR; Start 07/17/17 at 20:00 Metoprolol Tartrate 5 mg 5 mg Q5M PRN IV HR>120 Last administered on 07/19/17 16:26; Admin Dose 5 MG; Start 07/19/17 at 16:30 Diltiazem HCl 125 ml @ 5 mls/hr TITRATE IV Last administered on 07/20/17 06:40 ; Admin Dose 10 MLS/HR; Start 07/19/17 at 17:30 Vancomycin HCl/ Sodium Chloride (Vancocin/NS) 150 ml @ 75 mls/hr Q12H IVPB Last administered on 07/25/17 04:30; Admin Dose 75 MLS/HR; Start 07/22/17 at 04:00; Stop 07/26/17 at 14:17 Hydralazine HCl (Apresoline) 10 mg Q4H PRN IV ELEVATED BLOOD PRESSURE Last administered on 07/25/17 07:23; Admin Dose 10 MG; Start 07/22/17 at 15:30 Valsartan (Diovan) 40 mg BID PO Last administered on 07/25/17 08:42; Admin Dose 40 MG; Start 07/23/17 at 09:00 Nystatin (Nystatin Susp) 5 ml BID PO Last administered on 07/25/17 08:44; Admin Dose 5 ML; Start 07/23/17 at 14:00 EFRAÍN BHAKTA MD Jul 25, 2017 10:42
[2017-07-25] MEDS: AMLODIPINE 2.5 MG TAB PO SCH (11:33)
[2017-07-25] MEDS ORDERED: ALBUTEROL/IPRATROPIUM (NEB) 3 ML AMP HHN STA (11:34)
[2017-07-25] MEDS ORDERED: ALBUTEROL/IPRATROPIUM (NEB) 3 ML AMP HHN PRN (12:00)
--- NOTE | 2017-07-25 14:03 | PN ---
Date/Time of Note Date/Time of Note DATE: 07/25/17 TIME: 14:01 Assessment/Plan VTE Prophylaxis VTE Prophylaxis Intervention: SCD's Lines/Catheters IV Catheter Type (from Nrs): Peripheral IV Urinary Cath still in place: Yes Reason Cath still needed: urinary retention Assessment/Plan Chief Complaint/Hosp Course Assessment/Plan: 76 yo F with pmhx dementia, HTN, HL, depression here with fever and rigors concerning for possible infectious source, though none has yet been elucidated. Fever now resolved. 1. sepsis- Pt with at this time culture negative sepsis which appears to be improving/resolving, given combination of headache, AMS and fever, cannot exclude prospect of bacterial meningitis. Spinal imaging without abscess. EBV serum Ab's are positive (IgM and IgG), as well as + West Nile virus serology (+ IgM). LP ordered and attempted but could not be done 5 days ago 2/ agitation. -cont empiric abx with ceftriaxone, vanc, and f/u infectious disease rec's - Monitor CBC and for fevers and follow-up infectious disease recommendations , per Neuro, consider doing LP under sedation. -MRI brain results essentially negative, given positive West Nile Ab test, will discuss with neurology team about possibility of starting pt on IVIG 2. A. fib with RVR: Again patient now in sinus bradycardia rhythm. Appreciate cardiology consult, especially given patient's prior history of aortic valve replacement 4 years ago. -Continue beta-derek for now -Follow-up speech therapy and PT consults as well. 3. Early dementia: Per nursing staff and caregiver, patient's mental status appears to be more altered than normal, could be secondary to sepsis and prior A. fib with RVR, as well as her + west nile and EBV serologies. Head CT done on July 16 was negative for any acute pathologies. -Appreciate neurology consult, again follow their recommendations Problems: Subjective 24 Hr Interval Summary Free Text/Dictation No acute events overnight, patient seen by cardiology team this morning. Exam/Review of Systems Vital Signs Vitals Vital Signs Date Time Temp Pulse Resp B/P Pulse Ox O2 Delivery O2 Flow Rate FiO2 07/25/17 12:57 97 2.0 07/25/17 12:57 68 16 Nasal Cannula 07/25/17 11:48 97.7 177/73 Intake and Output 07/24/17 07/24/17 07/25/17 14:59 22:59 06:59 Intake Total 350 ml 1120 ml Output Total 400 ml 500 ml Balance -50 ml 620 ml Exam nad, lethargic, but answering basic questions no mrg lungs clear abd soft no rashes Results Result Diagram: 07/25/174 07/25/17 0234 Results 24 hrs Laboratory Tests Test 07/25/17 02:34 White Blood Count 9.5 Red Blood Count 3.57 L Hemoglobin 10.8 L Hematocrit 32.1 L Mean Corpuscular Volume 89.9 Mean Corpuscular Hemoglobin 30.3 Mean Corpuscular Hemoglobin Concent 33.6 Red Cell Distribution Width 14.2 Platelet Count 155 Mean Platelet Volume 13.3 H Neutrophils % 74.6 Lymphocytes % 9.5 L Monocytes % 9.2 Eosinophils % 4.2 Basophils % 0.3 Nucleated Red Blood Cells % 0.0 Neutrophils # 7.1 Lymphocytes # 0.9 Monocytes # 0.9 Eosinophils # 0.4 Basophils # 0.0 Nucleated Red Blood Cells # 0.0 Sodium Level 140 Potassium Level 3.4 L Chloride Level 110 Carbon Dioxide Level 22 Anion Gap 11 Blood Urea Nitrogen 13 Creatinine 0.61 Glucose Level 80 Calcium Level 8.2 L Vancomycin Level Trough 17.4 Medications Medications Current Medications Donepezil HCl (Aricept) 10 mg DAILY PO Last administered on 07/25/17 08:42; Admin Dose 10 MG; Start 07/17/17 at 09:00 Escitalopram Oxalate (Lexapro) 10 mg DAILY PO Last administered on 07/25/17 08:43; Admin Dose 10 MG; Start 07/17/17 at 09:00 Atorvastatin Calcium (Lipitor) 10 mg DAILY@21 PO Last administered on 20:54; Admin Dose 10 MG; Start 07/16/17 at 21:00 Acetaminophen (Tylenol Tab) 650 mg Q6H PRN PO PAIN LEVEL 1-3 OR FEVER Last administered on 07/19/17 16:19; Admin Dose 650 MG; Start 07/16/17 at 16:30 Acetaminophen/ Hydrocodone Bitart 1 tab 1 tab Q6H PRN PO MODERATE PAIN LEVEL 4- 6 Last administered on 07/16/17 22:39; Admin Dose 1 TAB; Start 07/16/17 at 16: 30 Ceftriaxone Sodium (Rocephin) 50 ml @ 100 mls/hr Q12H IVPB Last administered on 07/25/17 08:42; Admin Dose 100 MLS/HR; Start 07/16/17 at 20:00; Stop 07/26 at 14:17 Acetaminophen 650 mg 650 mg Q6H PRN [place] elevated temp Last administered on 17:56; Admin Dose 650 MG; Start 07/17/17 at 17:30 Sodium Chloride (NS) 1,000 ml @ 80 mls/hr [id number] IV Last administered on 03:35; Admin Dose 80 MLS/HR; Start 07/17/17 at 20:00 Metoprolol Tartrate 5 mg 5 mg Q5M PRN IV HR>120 Last administered on 07/19/17 16:26; Admin Dose 5 MG; Start 07/19/17 at 16:30 Diltiazem HCl 125 ml @ 5 mls/hr TITRATE IV Last administered on 07/20/17 06:40 ; Admin Dose 10 MLS/HR; Start 07/19/17 at 17:30 Vancomycin HCl/ Sodium Chloride (Vancocin/NS) 150 ml @ 75 mls/hr Q12H IVPB Last administered on 07/25/17 04:30; Admin Dose 75 MLS/HR; Start 07/22/17 at 04:00; Stop 07/26/17 at 14:17 Hydralazine HCl (Apresoline) 10 mg Q4H PRN IV ELEVATED BLOOD PRESSURE Last administered on 07/25/17 12:19; Admin Dose 10 MG; Start 07/22/17 at 15:30 Nystatin (Nystatin Susp) 5 ml BID PO Last administered on 07/25/17 08:44; Admin Dose 5 ML; Start 07/23/17 at 14:00 Metoprolol Tartrate (Lopressor) 50 mg BID PO ; Start 07/25/17 at 21:00 Valsartan (Diovan) 80 mg BID PO ; Start 07/25/17 at 21:00 Amlodipine Besylate (Norvasc) 2.5 mg DAILY PO Last administered on 07/25/17 11:33; Admin Dose 2.5 MG; Start 07/25/17 at 11:00 RUSSEL HOLDER Jul 25, 2017 14:03
--- NOTE | 2017-07-25 14:42 | CONS ---
Date/Time of Note Date/Time of Note DATE: 07/25/17 TIME: 14:40 Assessment/Plan Assessment/Plan Chief Complaint/Hosp Course Altered mental status Problems: Additional Assessment/Plan 76 yo female with hx of dementia, CAD s/p CABG admitted with fevers/ leukocytosis unclear source improving on abx- Ceftriaxone, Vancomycin, unable to tolerate LP x2. CTH unrevealing for acute process. MRI of the brain showed bihemispheric chronic white matter disease, nothing acute. Recommend: unable to tolerate LP due to agitation consider LP under sedation WNV sent result is pending, blood cultures negative x2 will follow Consultation Date/Type/Reason Admit Date/Time Jul 18, 2017 at 10:11 Initial Consult Date 07/22/17 Type of Consultation: card Reason for Consultation Altered mental status Referring Provider: RUSSEL HOLDER 24 HR Interval Summary Free Text/Dictation Clinically unchanged. Awake and alert but confused. Constitutional: no complaints Exam/Review of Systems Vital Signs Vitals Vital Signs Date Time Temp Pulse Resp B/P Pulse Ox O2 Delivery O2 Flow Rate FiO2 07/25/17 12:57 97 2.0 07/25/17 12:57 68 16 Nasal Cannula 07/25/17 11:48 97.7 177/73 Intake and Output 07/24/17 07/24/17 07/25/17 15:00 23:00 07:00 Intake Total 350 ml 1120 ml Output Total 400 ml 500 ml Balance -50 ml 620 ml Exam Constitutional: alert, well developed Psych: nl mood/affect, no complaints Head: atraumatic, normocephalic Eyes: EOMI, nl conjunctiva, nl lids, nl sclera ENMT: mucosa pink and moist, nl external ears & nose, nl lips & teeth, nl nasal mucosa & septum Neck: non-tender, supple Respiratory: clear to auscultation, normal air movement Cardiovascular: nl pulses, regular rate and rhythm Gastrointestinal: nl liver, spleen, non-tender, soft Neurological: [employer] RECE[employer]ING [employer] II-XII intact, confused Skin: nl turgor Results Result Diagram: 07/25/17 0234 07/25/17 0234 Results 24 hrs Laboratory Tests Test 07/25/17 02:34 White Blood Count 9.5 Red Blood Count 3.57 L Hemoglobin 10.8 L Hematocrit 32.1 L Mean Corpuscular Volume 89.9 Mean Corpuscular Hemoglobin 30.3 Mean Corpuscular Hemoglobin Concent 33.6 Red Cell Distribution Width 14.2 Platelet Count 155 Mean Platelet Volume 13.3 H Neutrophils % 74.6 Lymphocytes % 9.5 L Monocytes % 9.2 Eosinophils % 4.2 Basophils % 0.3 Nucleated Red Blood Cells % 0.0 Neutrophils # 7.1 Lymphocytes # 0.9 Monocytes # 0.9 Eosinophils # 0.4 Basophils # 0.0 Nucleated Red Blood Cells # 0.0 Sodium Level 140 Potassium Level 3.4 L Chloride Level 110 Carbon Dioxide Level 22 Anion Gap 11 Blood Urea Nitrogen 13 Creatinine 0.61 Glucose Level 80 Calcium Level 8.2 L Vancomycin Level Trough 17.4 Medications Medications Current Medications Donepezil HCl (Aricept) 10 mg DAILY PO Last administered on 07/25/17 08:42; Admin Dose 10 MG; Start 07/17/17 at 09:00 Escitalopram Oxalate (Lexapro) 10 mg DAILY PO Last administered on 07/25/17 08:43; Admin Dose 10 MG; Start 07/17/17 at 09:00 Atorvastatin Calcium (Lipitor) 10 mg DAILY@21 PO Last administered on 20:54; Admin Dose 10 MG; Start 07/16/17 at 21:00 Acetaminophen (Tylenol Tab) 650 mg Q6H PRN PO PAIN LEVEL 1-3 OR FEVER Last administered on 07/19/17 16:19; Admin Dose 650 MG; Start 07/16/17 at 16:30 Acetaminophen/ Hydrocodone Bitart 1 tab 1 tab Q6H PRN PO MODERATE PAIN LEVEL 4- 6 Last administered on 07/16/17 22:39; Admin Dose 1 TAB; Start 07/16/17 at 16: 30 Ceftriaxone Sodium (Rocephin) 50 ml @ 100 mls/hr Q12H IVPB Last administered on 07/25/17 08:42; Admin Dose 100 MLS/HR; Start 07/16/17 at 20:00; Stop 07/26 at 14:17 Acetaminophen 650 mg 650 mg Q6H PRN [place] elevated temp Last administered on 17:56; Admin Dose 650 MG; Start 07/17/17 at 17:30 Sodium Chloride (NS) 1,000 ml @ 80 mls/hr [id number] IV Last administered on 03:35; Admin Dose 80 MLS/HR; Start 07/17/17 at 20:00 Metoprolol Tartrate 5 mg 5 mg Q5M PRN IV HR>120 Last administered on 07/19/17 16:26; Admin Dose 5 MG; Start 07/19/17 at 16:30 Diltiazem HCl 125 ml @ 5 mls/hr TITRATE IV Last administered on 07/20/17 06:40 ; Admin Dose 10 MLS/HR; Start 07/19/17 at 17:30 Vancomycin HCl/ Sodium Chloride (Vancocin/NS) 150 ml @ 75 mls/hr Q12H IVPB Last administered on 07/25/17 04:30; Admin Dose 75 MLS/HR; Start 07/22/17 at 04:00; Stop 07/26/17 at 14:17 Hydralazine HCl (Apresoline) 10 mg Q4H PRN IV ELEVATED BLOOD PRESSURE Last administered on 07/25/17 12:19; Admin Dose 10 MG; Start 07/22/17 at 15:30 Nystatin (Nystatin Susp) 5 ml BID PO Last administered on 07/25/17 08:44; Admin Dose 5 ML; Start 07/23/17 at 14:00 Metoprolol Tartrate (Lopressor) 50 mg BID PO ; Start 07/25/17 at 21:00 Valsartan (Diovan) 80 mg BID PO ; Start 07/25/17 at 21:00 Amlodipine Besylate (Norvasc) 2.5 mg DAILY PO Last administered on 07/25/17 11:33; Admin Dose 2.5 MG; Start 07/25/17 at 11:00 CARLA AGARWAL MD Jul 25, 2017 14:41
--- NOTE | 2017-07-25 15:21 | CONS ---
Date/Time of Note Date/Time of Note DATE: 07/25/17 TIME: 15:20 Assessment/Plan Assessment/Plan Chief Complaint/Hosp Course ID PROGRESS NOTE CURRENT ABX: DAY #10 => Vanco IV + Ceftriaxone 24H INTERVAL SUMMARY * Resting comfortably w/eyes closed on supplemental O2 via NC, Opens eyes to verbal stimuli and is responsive * NO fevers, VSS, NAD, SBC normalized * Chart reviewed=> Serology came back (+)WNV IgM and (+)EBV IgM * 07/24/17 MRI Brain: IMPRESSION:1. No acute intracranial hemorrhage, infarction or mass.2. Mild to moderate nonspecific white matter signal abnormality which may represent chronic small vessel ischemic changes.3. Mild to moderate generalized cerebral and mild cerebellar volume loss. * LP tap under CT guidance was unsuccessful Physical Exam Physical Exam Constitutional: VSS, NAD HEENT: Unremarkable Neck: Supple, full ROM Respiratory: Equal chest rise bilaterally, without dyspnea on observation Cardiovascular: nl pulse Gastrointestinal: Soft, NT Extremities: Warm Neurological: Generalized weakness noted, no focal deficits ID ASSESSMENT 76 yo F admit with: 1. Sepsis with fevers, leukocytosis and acute encephalopathy on admission 2/2 # 2 => RESOLVED * BCx (-); Urine Cx (-) * No evidence of septic arthritis on radiology imaging * No evidence PNA, no infectious GI process on CT 2. Likely viral syndrome w/encephalitis==>Serology came back (+)WNV IgM and (+) EBV IgM 3. History of coronary artery bypass graft and valve replacement. 4. Alzheimer dementia. 5. History of cervical fusion, no evidence of infectious process per spinal CT. (- )MRSA Nares- ABX ALLERGIES: None to ABX CURRENT ABX: DAY #10 => Vanco IV + Ceftriaxone ID RECOMMENDATIONS 1. DC ABX -> work up without evidence of bacterial source * Acyclovir/Ganciclovir have NO Proven Benefit for EBV/WNV. 2. Continue supportive care for viral syndrome . Problems: Consultation Date/Type/Reason Admit Date/Time Jul 18, 2017 at 10:11 Initial Consult Date 07/22/17 Type of Consultation: ID Referring Provider: RUSSEL HOLDER Exam/Review of Systems Vital Signs Vitals Vital Signs Date Time Temp Pulse Resp B/P Pulse Ox O2 Delivery O2 Flow Rate FiO2 07/25/17 12:57 97 2.0 07/25/17 12:57 68 16 Nasal Cannula 07/25/17 11:48 97.7 177/73 Intake and Output 07/24/17 07/24/17 07/25/17 15:00 23:00 07:00 Intake Total 350 ml 1120 ml Output Total 400 ml 500 ml Balance -50 ml 620 ml Results Result Diagram: 07/25/17 0234 07/25/17 0234 Results 24 hrs Laboratory Tests Test 07/25/17 02:34 White Blood Count 9.5 Red Blood Count 3.57 L Hemoglobin 10.8 L Hematocrit 32.1 L Mean Corpuscular Volume 89.9 Mean Corpuscular Hemoglobin 30.3 Mean Corpuscular Hemoglobin Concent 33.6 Red Cell Distribution Width 14.2 Platelet Count 155 Mean Platelet Volume 13.3 H Neutrophils % 74.6 Lymphocytes % 9.5 L Monocytes % 9.2 Eosinophils % 4.2 Basophils % 0.3 Nucleated Red Blood Cells % 0.0 Neutrophils # 7.1 Lymphocytes # 0.9 Monocytes # 0.9 Eosinophils # 0.4 Basophils # 0.0 Nucleated Red Blood Cells # 0.0 Sodium Level 140 Potassium Level 3.4 L Chloride Level 110 Carbon Dioxide Level 22 Anion Gap 11 Blood Urea Nitrogen 13 Creatinine 0.61 Glucose Level 80 Calcium Level 8.2 L Vancomycin Level Trough 17.4 Medications Medications Current Medications Donepezil HCl (Aricept) 10 mg DAILY PO Last administered on 07/25/17 08:42; Admin Dose 10 MG; Start 07/17/17 at 09:00 Escitalopram Oxalate (Lexapro) 10 mg DAILY PO Last administered on 07/25/17 08:43; Admin Dose 10 MG; Start 07/17/17 at 09:00 Atorvastatin Calcium (Lipitor) 10 mg DAILY@21 PO Last administered on 20:54; Admin Dose 10 MG; Start 07/16/17 at 21:00 Acetaminophen (Tylenol Tab) 650 mg Q6H PRN PO PAIN LEVEL 1-3 OR FEVER Last administered on 07/19/17 16:19; Admin Dose 650 MG; Start 07/16/17 at 16:30 Acetaminophen/ Hydrocodone Bitart 1 tab 1 tab Q6H PRN PO MODERATE PAIN LEVEL 4- 6 Last administered on 07/16/17 22:39; Admin Dose 1 TAB; Start 07/16/17 at 16: 30 Ceftriaxone Sodium (Rocephin) 50 ml @ 100 mls/hr Q12H IVPB Last administered on 07/25/17 08:42; Admin Dose 100 MLS/HR; Start 07/16/17 at 20:00; Stop 07/26 at 14:17 Acetaminophen 650 mg 650 mg Q6H PRN [place] elevated temp Last administered on 17:56; Admin Dose 650 MG; Start 07/17/17 at 17:30 Sodium Chloride (NS) 1,000 ml @ 80 mls/hr [id number] IV Last administered on 03:35; Admin Dose 80 MLS/HR; Start 07/17/17 at 20:00 Metoprolol Tartrate 5 mg 5 mg Q5M PRN IV HR>120 Last administered on 07/19/17 16:26; Admin Dose 5 MG; Start 07/19/17 at 16:30 Diltiazem HCl 125 ml @ 5 mls/hr TITRATE IV Last administered on 07/20/17 06:40 ; Admin Dose 10 MLS/HR; Start 07/19/17 at 17:30 Vancomycin HCl/ Sodium Chloride (Vancocin/NS) 150 ml @ 75 mls/hr Q12H IVPB Last administered on 07/25/17 04:30; Admin Dose 75 MLS/HR; Start 07/22/17 at 04:00; Stop 07/26/17 at 14:17 Hydralazine HCl (Apresoline) 10 mg Q4H PRN IV ELEVATED BLOOD PRESSURE Last administered on 07/25/17 12:19; Admin Dose 10 MG; Start 07/22/17 at 15:30 Nystatin (Nystatin Susp) 5 ml BID PO Last administered on 07/25/17 08:44; Admin Dose 5 ML; Start 07/23/17 at 14:00 Metoprolol Tartrate (Lopressor) 50 mg BID PO ; Start 07/25/17 at 21:00 Valsartan (Diovan) 80 mg BID PO ; Start 07/25/17 at 21:00 Amlodipine Besylate (Norvasc) 2.5 mg DAILY PO Last administered on 07/25/17 11:33; Admin Dose 2.5 MG; Start 07/25/17 at 11:00 LIZETH ZELAYA NP 14, 2017 15:21
[2017-07-25] MEDS: ATORVASTATIN 10 MG TAB PO SCH (21:08)
[2017-07-25] MEDS: METOPROLOL 50 MG TAB PO SCH (21:09)
[2017-07-26] VITALS (13 sets, daily range): BP systolic 130–189; BP diastolic 58–79; PULSE 56–68; RESP 16–20
[2017-07-26] MEDS: hydrALAzine 20 MG INJ IV PRN ×3 (03:35→12:21)
[2017-07-26 07:13] LABS: ABNORMAL IP MESSAGE 1; BASOPHIL # 0.1 10^3/ul (0.0-0.1); BASOPHILS % 0.5 % (0.0-2.0); EOSINOPHILS # 0.3 10^3/ul (0.0-0.5); EOSINOPHILS % 3.2 % (0.0-7.0); HEMATOCRIT 34.1 % (37.0-47.0); HEMOGLOBIN 11.4 g/dl (12.0-16.0); LYMPHOCYTES % 9.8 % (15.0-51.0); MEAN CORPUSCULAR HEMOGLOBIN 30.4 pg (29.0-33.0); MEAN CORPUSCULAR HGB CONC 33.4 g/dl (32.0-37.0); MEAN CORPUSCULAR VOLUME 90.9 fl (82.0-101.0); MEAN PLATELET VOLUME 13.6 fl (7.4-10.4); MONOCYTE # 0.8 10^3/ul (0.3-0.9); MONOCYTES % 8.2 % (0.0-11.0); NEUTROPHIL # 7.5 10^3/ul (1.6-7.5); PLATELET COUNT 130 10^3/UL (140-415); RED BLOOD COUNT 3.75 10^6/ul (4.20-5.40); RED CELL DISTRIBUTION WIDTH 14.5 % (11.5-14.5)
[2017-07-26 07:15] LABS: POSITIVE DIFF @See below
[2017-07-26 07:43] LABS: CREATININE 0.55 mg/dl (0.44-1.00); POTASSIUM 3.3 mmol/L (3.5-5.1)
[2017-07-26] MEDS: SOD CHLORIDE 0.9% 1,000 ML IV SCH (09:00)
[2017-07-26] MEDS: DONEPEZIL 10 MG TAB PO SCH (09:13)
[2017-07-26] MEDS: ESCITALOPRAM 10 MG TAB PO SCH (09:14)
[2017-07-26] MEDS: VALSARTAN 80 MG TAB PO SCH ×2 (09:14→20:50)
[2017-07-26] MEDS: AMLODIPINE 2.5 MG TAB PO SCH (09:14)
[2017-07-26] MEDS: METOPROLOL 50 MG TAB PO SCH ×2 (09:14→20:51)
[2017-07-26] MEDS: NYSTATIN SUSP 5 ML CUP PO SCH ×2 (09:14→20:49)
[2017-07-26] MEDS: BALSAM PERU/CASTOR OIL 60 GM TUBE TOP SCH (09:17)
[2017-07-26] MEDS ORDERED: POTASSIUM CHLORIDE (SR) 20 MEQ TAB PO STA (10:35)
--- NOTE | 2017-07-26 10:46 | PN ---
Date/Time of Note Date/Time of Note DATE: 07/26/17 TIME: 10:43 Assessment/Plan VTE Prophylaxis VTE Prophylaxis Intervention: SCD's Lines/Catheters IV Catheter Type (from Nrs): Peripheral IV Urinary Cath still in place: Yes Reason Cath still needed: urinary retention Assessment/Plan Chief Complaint/Hosp Course Assessment/Plan: 76 yo F with pmhx dementia, HTN, HL, depression here with fever and rigors concerning for possible infectious source, though none has yet been elucidated. Fever now resolved. 1. sepsis- Pt with at this time culture negative sepsis which appears to be improving/resolving, given combination of headache, AMS and fever, cannot exclude prospect of bacterial meningitis. Spinal imaging without abscess. EBV serum Ab's are positive (IgM and IgG), as well as + West Nile virus serology (+ IgM). LP ordered and attempted but could not be done 6 days ago 2/2 agitation. -cont empiric abx with ceftriaxone, vanc, and f/u infectious disease rec's - Monitor CBC and for fevers and follow-up infectious disease recommendations , per Neuro, consider doing LP under sedation. -MRI brain results essentially negative, given positive West Nile Ab test, will discuss with neurology team about possibility of starting pt on IVIG 2. A. fib with RVR: Again patient now in sinus bradycardia rhythm. Appreciate cardiology consult, especially given patient's prior history of aortic valve replacement 4 years ago. -Continue beta-derek for now -Follow-up speech therapy and PT consults as well. 3. Early dementia: Per nursing staff and caregiver, patient's mental status appears to be more altered than normal, could be secondary to sepsis and prior A. fib with RVR, as well as her + west nile and EBV serologies. Head CT done on July 16 was negative for any acute pathologies. -Appreciate neurology consult, again follow their recommendations 4. HTN -still elevated despite blood pressure meds ordered from cardiology team. -For now continue metoprolol, Diovan, Norvasc. Also on hydralazine as needed , clonidine as needed added today as well. Problems: Subjective 24 Hr Interval Summary Free Text/Dictation Patient still with elevated blood pressure. Seen by neurology team yesterday and infectious disease team as well. Exam/Review of Systems Vital Signs Vitals Vital Signs Date Time Temp Pulse Resp B/P Pulse Ox O2 Delivery O2 Flow Rate FiO2 07/26/17 08:47 65 07/26/17 07:46 98.4 17 184/77 98 07/26/17 05:46 2.0 07/26/17 04:10 Nasal Cannula Intake and Output 07/25/17 07/25/17 07/26/17 15:00 23:00 07:00 Intake Total 400 ml 850 ml Output Total 600 ml 1200 ml Balance -200 ml -350 ml Exam nad, lethargic, but answering basic questions no mrg lungs clear abd soft no rashes Results Result Diagram: 07/26/17 0645 07/26/17 0645 Results 24 hrs Laboratory Tests Test 07/26/17 06:45 White Blood Count 10.0 Red Blood Count 3.75 L Hemoglobin 11.4 L Hematocrit 34.1 L Mean Corpuscular Volume 90.9 Mean Corpuscular Hemoglobin 30.4 Mean Corpuscular Hemoglobin Concent 33.4 Red Cell Distribution Width 14.5 Platelet Count 130 L Mean Platelet Volume 13.6 H Neutrophils % 75.0 Lymphocytes % 9.8 L Monocytes % 8.2 Eosinophils % 3.2 Basophils % 0.5 Nucleated Red Blood Cells % 0.0 Neutrophils # 7.5 Lymphocytes # 1.0 Monocytes # 0.8 Eosinophils # 0.3 Basophils # 0.1 Nucleated Red Blood Cells # 0.0 Sodium Level 139 Potassium Level 3.3 L Chloride Level 108 Carbon Dioxide Level 25 Anion Gap 9 Blood Urea Nitrogen 10 Creatinine 0.55 Glucose Level 87 Calcium Level 8.0 L Medications Medications Current Medications Donepezil HCl (Aricept) 10 mg DAILY PO Last administered on 07/26/17 09:13; Admin Dose 10 MG; Start 07/17/17 at 09:00 Escitalopram Oxalate (Lexapro) 10 mg DAILY PO Last administered on 07/26/17 09:14; Admin Dose 10 MG; Start 07/17/17 at 09:00 Atorvastatin Calcium (Lipitor) 10 mg DAILY@21 PO Last administered on 21:08; Admin Dose 10 MG; Start 07/16/17 at 21:00 Acetaminophen (Tylenol Tab) 650 mg Q6H PRN PO PAIN LEVEL 1-3 OR FEVER Last administered on 07/19/17 16:19; Admin Dose 650 MG; Start 07/16/17 at 16:30 Acetaminophen/ Hydrocodone Bitart ([place] (5/325)) 1 tab Q6H PRN PO MODERATE PAIN LEVEL 4-6 Last administered on 07/16/17 22:39; Admin Dose 1 TAB; Start at 16:30 Acetaminophen (Tylenol Supp) 650 mg Q6H PRN [place] elevated temp Last administered on 07/17/17 17:56; Admin Dose 650 MG; Start 07/17/17 at 17:30 Metoprolol Tartrate 5 mg 5 mg Q5M PRN IV HR>120 Last administered on 07/19/17 16:26; Admin Dose 5 MG; Start 07/19/17 at 16:30 Diltiazem HCl (Cardizem-D5W 125 Mg/125 ml Drip) 125 ml @ 5 mls/hr TITRATE IV Last administered on 07/20/17 06:40; Admin Dose 10 MLS/HR; Start 07/19/17 at 17 :30 Hydralazine HCl (Apresoline) 10 mg Q4H PRN IV ELEVATED BLOOD PRESSURE Last administered on 07/26/17 09:13; Admin Dose 10 MG; Start 07/22/17 at 15:30 Nystatin (Nystatin Susp) 5 ml BID PO Last administered on 07/26/17 09:14; Admin Dose 5 ML; Start 07/23/17 at 14:00 Metoprolol Tartrate (Lopressor) 50 mg BID PO Last administered on 07/26/17 09 :14; Admin Dose 50 MG; Start 07/25/17 at 21:00 Valsartan (Diovan) 80 mg BID PO Last administered on 07/26/17 09:14; Admin Dose 80 MG; Start 07/25/17 at 21:00 Amlodipine Besylate 2.5 mg 2.5 mg DAILY PO Last administered on 07/26/17 09: 14; Admin Dose 2.5 MG; Start 07/25/17 at 11:00 Sodium Chloride (1/2 NS) 1,000 ml @ 50 mls/hr Q20H IV ; Start 07/26/17 at 10: 30; Status UNV Clonidine (Catapres) 0.1 mg Q6H PRN PO SBP >160; Start 07/26/17 at 10:30; Status UNV RUSSEL HOLDER Jul 26, 2017 10:46
[2017-07-26] MEDS: SOD CHLORIDE 0.45% 1,000 ML IV SCH (11:10)
--- NOTE | 2017-07-26 15:14 | CONS ---
Date/Time of Note Date/Time of Note DATE: 07/26/17 TIME: 15:12 Assessment/Plan Assessment/Plan Chief Complaint/Hosp Course Altered mental status Problems: Additional Assessment/Plan 76 yo female with hx of dementia, CAD s/p CABG admitted with fevers/ leukocytosis unclear source improving on abx- Ceftriaxone, Vancomycin, unable to tolerate LP x2. CTH unrevealing for acute process. MRI of the brain showed bihemispheric chronic white matter disease, nothing acute. Recommend: unable to tolerate LP due to agitation consider LP under sedation WNV sent result is pending, blood cultures negative x2 will follow Consultation Date/Type/Reason Admit Date/Time Jul 18, 2017 at 10:11 Initial Consult Date 07/22/17 Type of Consultation: ID Reason for Consultation Altered mental status Referring Provider: RUSSEL HOLDER 24 HR Interval Summary Free Text/Dictation Clinically unchanged Exam/Review of Systems Vital Signs Vitals Vital Signs Date Time Temp Pulse Resp B/P Pulse Ox O2 Delivery O2 Flow Rate FiO2 07/26/17 13:16 56 07/26/17 12:56 130/58 07/26/17 11:59 98.1 18 95 07/26/17 09:14 Nasal Cannula 3.0 Intake and Output 07/25/17 07/25/17 07/26/17 15:00 23:00 07:00 Intake Total 400 ml 850 ml Output Total 600 ml 1200 ml Balance -200 ml -350 ml Exam Constitutional: alert Psych: nl mood/affect, no complaints Head: atraumatic, normocephalic Eyes: EOMI, nl conjunctiva, nl lids, nl sclera ENMT: mucosa pink and moist, nl external ears & nose, nl lips & teeth, nl nasal mucosa & septum Neck: non-tender, supple Respiratory: clear to auscultation, normal air movement Cardiovascular: nl pulses, regular rate and rhythm Gastrointestinal: nl liver, spleen, non-tender, soft Extremities: normal pulses Neurological: LASER/ELECTRO OPTICS TECHNICIAN II-XII intact, other (Limited exam, gait was not tested, moving all extremities and withdrawal to noxious stimulus bilateral upper and lower extremities) Results Result Diagram: 07/26/17 0645 07/26/17 0645 Results 24 hrs Laboratory Tests Test 07/26/17 06:45 White Blood Count 10.0 Red Blood Count 3.75 L Hemoglobin 11.4 L Hematocrit 34.1 L Mean Corpuscular Volume 90.9 Mean Corpuscular Hemoglobin 30.4 Mean Corpuscular Hemoglobin Concent 33.4 Red Cell Distribution Width 14.5 Platelet Count 130 L Mean Platelet Volume 13.6 H Neutrophils % 75.0 Lymphocytes % 9.8 L Monocytes % 8.2 Eosinophils % 3.2 Basophils % 0.5 Nucleated Red Blood Cells % 0.0 Neutrophils # 7.5 Lymphocytes # 1.0 Monocytes # 0.8 Eosinophils # 0.3 Basophils # 0.1 Nucleated Red Blood Cells # 0.0 Sodium Level 139 Potassium Level 3.3 L Chloride Level 108 Carbon Dioxide Level 25 Anion Gap 9 Blood Urea Nitrogen 10 Creatinine 0.55 Glucose Level 87 Calcium Level 8.0 L Medications Medications Current Medications Donepezil HCl (Aricept) 10 mg DAILY PO Last administered on 07/26/17 09:13; Admin Dose 10 MG; Start 07/17/17 at 09:00 Escitalopram Oxalate (Lexapro) 10 mg DAILY PO Last administered on 07/26/17 09:14; Admin Dose 10 MG; Start 07/17/17 at 09:00 Atorvastatin Calcium (Lipitor) 10 mg DAILY@21 PO Last administered on 21:08; Admin Dose 10 MG; Start 07/16/17 at 21:00 Acetaminophen (Tylenol Tab) 650 mg Q6H PRN PO PAIN LEVEL 1-3 OR FEVER Last administered on 07/19/17 16:19; Admin Dose 650 MG; Start 07/16/17 at 16:30 Acetaminophen/ Hydrocodone Bitart ([place] (5/325)) 1 tab Q6H PRN PO MODERATE PAIN LEVEL 4-6 Last administered on 07/16/17 22:39; Admin Dose 1 TAB; Start at 16:30 Acetaminophen (Tylenol Supp) 650 mg Q6H PRN [place] elevated temp Last administered on 07/17/17 17:56; Admin Dose 650 MG; Start 07/17/17 at 17:30 Metoprolol Tartrate 5 mg 5 mg Q5M PRN IV HR>120 Last administered on 07/19/17 16:26; Admin Dose 5 MG; Start 07/19/17 at 16:30 Diltiazem HCl (Cardizem-D5W 125 Mg/125 ml Drip) 125 ml @ 5 mls/hr TITRATE IV Last administered on 07/20/17 06:40; Admin Dose 10 MLS/HR; Start 07/19/17 at 17 :30 Hydralazine HCl (Apresoline) 10 mg Q4H PRN IV ELEVATED BLOOD PRESSURE Last administered on 07/26/17 12:21; Admin Dose 10 MG; Start 07/22/17 at 15:30 Nystatin (Nystatin Susp) 5 ml BID PO Last administered on 07/26/17 09:14; Admin Dose 5 ML; Start 07/23/17 at 14:00 Metoprolol Tartrate (Lopressor) 50 mg BID PO Last administered on 07/26/17 09 :14; Admin Dose 50 MG; Start 07/25/17 at 21:00 Valsartan (Diovan) 80 mg BID PO Last administered on 07/26/17 09:14; Admin Dose 80 MG; Start 07/25/17 at 21:00 Amlodipine Besylate 2.5 mg 2.5 mg DAILY PO Last administered on 07/26/17 09: 14; Admin Dose 2.5 MG; Start 07/25/17 at 11:00 Sodium Chloride (1/2 NS) 1,000 ml @ 50 mls/hr Q20H IV Last administered on 11:10; Admin Dose 50 MLS/HR; Start 07/26/17 at 10:30 Clonidine (Catapres) 0.1 mg Q6H PRN PO SBP >160 Last administered on 11:10; Admin Dose 0.1 MG; Start 07/26/17 at 10:30 CARLA AGARWAL MD Jul 26, 2017 15:14
--- NOTE | 2017-07-26 15:54 | CONS ---
Date/Time of Note Date/Time of Note DATE: 07/26/17 TIME: 15:48 Consultation Date/Type/Reason Admit Date/Time Jul 18, 2017 at 10:11 Initial Consult Date SUBJECTIVE: 76 yo female with hx of dementia, CAD s/p CABG admitted with fevers /leukocytosis unclear source improving on abx- No acute changes. The patient is awake, alert. Denies fevers. VS: 171/74 P:65 R:18 T:98.0 SO2:95% LABS: reviewed. stable. ANTIMICROBIALS: None at this time. D/C on 07/25 MICROBIOLOGY: Blood cultures and urine cultures since admission negative. Brain MRI IMPRESSION: 07/24/17 1. No acute intracranial hemorrhage, infarction or mass. 2. Mild to moderate nonspecific white matter signal abnormality which may represent chronic small vessel ischemic changes. 3. Mild to moderate generalized cerebral and mild cerebellar volume loss. PHYSICAL EXAMINATION: GENERAL: This is a fragile, elderly woman who is lethargic, in no distress. HEENT: Head atraumatic, normocephalic. Sclerae anicteric. Buccal mucosa dry. NECK: Supple, trachea midline. CHEST: Rise symmetrical. Breath sounds diminished to bases. HEART: S1, S2. ABDOMEN: Soft, bowel tones present. EXTREMITIES: Without cyanosis. ASSESSMENT: 1. Sepsis with fevers, leukocytosis and acute encephalopathy on admission. 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 History of coronary artery bypass graft and valve replacement. 4. Alzheimer dementia. 5. History of cervical fusion, no evidence of infectious process per spinal CT. Plan: Remains unchanged. Off of antbx., Continue aspiration precautions, f/u neurology rec-s. Type of Consultation: ID Referring Provider: RUSSEL HOLDER Exam/Review of Systems Vital Signs Vitals Vital Signs Date Time Temp Pulse Resp B/P Pulse Ox O2 Delivery O2 Flow Rate FiO2 07/26/17 13:16 56 07/26/17 12:56 130/58 07/26/17 11:59 98.1 18 95 07/26/17 09:14 Nasal Cannula 3.0 Intake and Output 07/25/17 07/25/17 07/26/17 15:00 23:00 07:00 Intake Total 400 ml 850 ml Output Total 600 ml 1200 ml Balance -200 ml -350 ml Results Result Diagram: 07/26/1745 07/26/1745 Results 24 hrs Laboratory Tests Test 07/26/17 06:45 White Blood Count 10.0 Red Blood Count 3.75 L Hemoglobin 11.4 L Hematocrit 34.1 L Mean Corpuscular Volume 90.9 Mean Corpuscular Hemoglobin 30.4 Mean Corpuscular Hemoglobin Concent 33.4 Red Cell Distribution Width 14.5 Platelet Count 130 L Mean Platelet Volume 13.6 H Neutrophils % 75.0 Lymphocytes % 9.8 L Monocytes % 8.2 Eosinophils % 3.2 Basophils % 0.5 Nucleated Red Blood Cells % 0.0 Neutrophils # 7.5 Lymphocytes # 1.0 Monocytes # 0.8 Eosinophils # 0.3 Basophils # 0.1 Nucleated Red Blood Cells # 0.0 Sodium Level 139 Potassium Level 3.3 L Chloride Level 108 Carbon Dioxide Level 25 Anion Gap 9 Blood Urea Nitrogen 10 Creatinine 0.55 Glucose Level 87 Calcium Level 8.0 L Medications Medications Current Medications Donepezil HCl (Aricept) 10 mg DAILY PO Last administered on 07/26/17 09:13; Admin Dose 10 MG; Start 07/17/17 at 09:00 Escitalopram Oxalate (Lexapro) 10 mg DAILY PO Last administered on 07/26/17 09:14; Admin Dose 10 MG; Start 07/17/17 at 09:00 Atorvastatin Calcium (Lipitor) 10 mg DAILY@21 PO Last administered on 21:08; Admin Dose 10 MG; Start 07/16/17 at 21:00 Acetaminophen (Tylenol Tab) 650 mg Q6H PRN PO PAIN LEVEL 1-3 OR FEVER Last administered on 07/19/17 16:19; Admin Dose 650 MG; Start 07/16/17 at 16:30 Acetaminophen/ Hydrocodone Bitart ([place] (5/325)) 1 tab Q6H PRN PO MODERATE PAIN LEVEL 4-6 Last administered on 07/16/17 22:39; Admin Dose 1 TAB; Start at 16:30 Acetaminophen (Tylenol Supp) 650 mg Q6H PRN [place] elevated temp Last administered on 07/17/17 17:56; Admin Dose 650 MG; Start 07/17/17 at 17:30 Metoprolol Tartrate 5 mg 5 mg Q5M PRN IV HR>120 Last administered on 07/19/17 16:26; Admin Dose 5 MG; Start 07/19/17 at 16:30 Diltiazem HCl (Cardizem-D5W 125 Mg/125 ml Drip) 125 ml @ 5 mls/hr TITRATE IV Last administered on 07/20/17 06:40; Admin Dose 10 MLS/HR; Start 07/19/17 at 17 :30 Hydralazine HCl (Apresoline) 10 mg Q4H PRN IV ELEVATED BLOOD PRESSURE Last administered on 07/26/17 12:21; Admin Dose 10 MG; Start 07/22/17 at 15:30 Nystatin (Nystatin Susp) 5 ml BID PO Last administered on 07/26/17 09:14; Admin Dose 5 ML; Start 07/23/17 at 14:00 Metoprolol Tartrate (Lopressor) 50 mg BID PO Last administered on 07/26/17 09 :14; Admin Dose 50 MG; Start 07/25/17 at 21:00 Valsartan (Diovan) 80 mg BID PO Last administered on 07/26/17 09:14; Admin Dose 80 MG; Start 07/25/17 at 21:00 Amlodipine Besylate 2.5 mg 2.5 mg DAILY PO Last administered on 07/26/17 09: 14; Admin Dose 2.5 MG; Start 07/25/17 at 11:00 Sodium Chloride (1/2 NS) 1,000 ml @ 50 mls/hr Q20H IV Last administered on 11:10; Admin Dose 50 MLS/HR; Start 07/26/17 at 10:30 Clonidine (Catapres) 0.1 mg Q6H PRN PO SBP >160 Last administered on 11:10; Admin Dose 0.1 MG; Start 07/26/17 at 10:30 HERSON CALDERON Jul 26, 2017 15:54
[2017-07-26] MEDS: ATORVASTATIN 10 MG TAB PO SCH (20:50)
[2017-07-27] VITALS (12 sets, daily range): BP systolic 139–189; BP diastolic 61–81; PULSE 54–64; RESP 16–18
[2017-07-27] MEDS: hydrALAzine 20 MG INJ IV PRN ×2 (02:46→21:34)
[2017-07-27] MEDS: SOD CHLORIDE 0.45% 1,000 ML IV SCH (07:01)
[2017-07-27 07:49] LABS: BASOPHILS % 0.3 % (0.0-2.0); EOSINOPHILS # 0.3 10^3/ul (0.0-0.5); EOSINOPHILS % 2.6 % (0.0-7.0); HEMATOCRIT 32.6 % (37.0-47.0); HEMOGLOBIN 10.8 g/dl (12.0-16.0); LYMPHOCYTES % 10.8 % (15.0-51.0); MEAN CORPUSCULAR HEMOGLOBIN 30.3 pg (29.0-33.0); MEAN CORPUSCULAR HGB CONC 33.1 g/dl (32.0-37.0); MEAN CORPUSCULAR VOLUME 91.3 fl (82.0-101.0); MEAN PLATELET VOLUME 12.9 fl (7.4-10.4); MONOCYTE # 0.8 10^3/ul (0.3-0.9); MONOCYTES % 7.8 % (0.0-11.0); NEUTROPHIL # 7.4 10^3/ul (1.6-7.5); NEUTROPHILS % 76.9 % (39.0-77.0); PLATELET COUNT 141 10^3/UL (140-415); RED BLOOD COUNT 3.57 10^6/ul (4.20-5.40); RED CELL DISTRIBUTION WIDTH 14.7 % (11.5-14.5); WHITE BLOOD COUNT 9.6 10^3/ul (4.8-10.8)
[2017-07-27 08:24] LABS: CALCIUM 8.2 mg/dl (8.4-10.2); CREATININE 0.56 mg/dl (0.44-1.00); POTASSIUM 3.4 mmol/L (3.5-5.1)
[2017-07-27] MEDS: VALSARTAN 80 MG TAB PO SCH (09:38)
[2017-07-27] MEDS: AMLODIPINE 2.5 MG TAB PO SCH (09:38)
[2017-07-27] MEDS: METOPROLOL 50 MG TAB PO SCH ×2 (09:38→21:08)
[2017-07-27] MEDS: ESCITALOPRAM 10 MG TAB PO SCH (09:40)
[2017-07-27] MEDS: BALSAM PERU/CASTOR OIL 60 GM TUBE TOP SCH (09:41)
[2017-07-27] MEDS: NYSTATIN SUSP 5 ML CUP PO SCH ×2 (09:41→21:07)
--- NOTE | 2017-07-27 13:16 | CONS ---
Date/Time of Note Date/Time of Note DATE: 07/27/17 TIME: 13:12 Consult Date/Type/Reason Admit Date/Time Jul 18, 2017 at 10:11 Initial Consult Date 07/22/17 Type of Consultation: Neurology Reason for Consultation encephalopathy Ordering Provider: RUSSEL HOLDER Subjective remains encephalopathic Objective Vital Signs Date Time Temp Pulse Resp B/P Pulse Ox O2 Delivery O2 Flow Rate FiO2 07/27/17 12:23 64 07/27/17 11:47 98.3 18 139/63 95 07/26/17 23:00 2.0 07/26/17 20:00 Nasal Cannula Intake and Output 07/26/17 07/26/17 07/27/17 15:00 23:00 07:00 Intake Total 200 ml 750 ml Output Total 800 ml 750 ml Balance -600 ml 0 ml Exam Constitutional: alert Psych: nl mood/affect, no complaints Head: atraumatic, normocephalic Eyes: EOMI, nl conjunctiva, nl lids, nl sclera ENMT: mucosa pink and moist, nl external ears & nose, nl lips & teeth, nl nasal mucosa & septum Neck: non-tender, supple Respiratory: clear to auscultation, normal air movement Cardiovascular: nl pulses, regular rate and rhythm Gastrointestinal: nl liver, spleen, non-tender, soft Extremities: normal pulses Neurological: BISCUIT MAKER II-XII intact, other (Limited exam, gait was not tested, moving all extremities and withdrawal to noxious stimulus bilateral upper and lower extremities) Results/Medications Result Diagram: 07/27/17 0607 07/27/17 0607 Results 24 hrs Laboratory Tests Test 07/27/17 06:07 White Blood Count 9.6 Red Blood Count 3.57 L Hemoglobin 10.8 L Hematocrit 32.6 L Mean Corpuscular Volume 91.3 Mean Corpuscular Hemoglobin 30.3 Mean Corpuscular Hemoglobin Concent 33.1 Red Cell Distribution Width 14.7 H Platelet Count 141 Mean Platelet Volume 12.9 H Neutrophils % 76.9 Lymphocytes % 10.8 L Monocytes % 7.8 Eosinophils % 2.6 Basophils % 0.3 Nucleated Red Blood Cells % 0.0 Neutrophils # 7.4 Lymphocytes # 1.0 Monocytes # 0.8 Eosinophils # 0.3 Basophils # 0.0 Nucleated Red Blood Cells # 0.0 Sodium Level 137 Potassium Level 3.4 L Chloride Level 104 Carbon Dioxide Level 29 Anion Gap 7 L Blood Urea Nitrogen 9 Creatinine 0.56 Glucose Level 92 Calcium Level 8.2 L Medications Current Medications Donepezil HCl (Aricept) 10 mg DAILY PO Last administered on 07/26/17 09:13; Admin Dose 10 MG; Start 07/17/17 at 09:00 Escitalopram Oxalate (Lexapro) 10 mg DAILY PO Last administered on 07/27/17 09:40; Admin Dose 10 MG; Start 07/17/17 at 09:00 Atorvastatin Calcium (Lipitor) 10 mg DAILY@21 PO Last administered on 20:50; Admin Dose 10 MG; Start 07/16/17 at 21:00 Acetaminophen (Tylenol Tab) 650 mg Q6H PRN PO PAIN LEVEL 1-3 OR FEVER Last administered on 07/19/17 16:19; Admin Dose 650 MG; Start 07/16/17 at 16:30 Acetaminophen/ Hydrocodone Bitart ([place] (5/325)) 1 tab Q6H PRN PO MODERATE PAIN LEVEL 4-6 Last administered on 07/16/17 22:39; Admin Dose 1 TAB; Start at 16:30 Acetaminophen (Tylenol Supp) 650 mg Q6H PRN [place] elevated temp Last administered on 07/17/17 17:56; Admin Dose 650 MG; Start 07/17/17 at 17:30 Metoprolol Tartrate 5 mg 5 mg Q5M PRN IV HR>120 Last administered on 07/19/17 16:26; Admin Dose 5 MG; Start 07/19/17 at 16:30 Diltiazem HCl (Cardizem-D5W 125 Mg/125 ml Drip) 125 ml @ 5 mls/hr TITRATE IV Last administered on 07/20/17 06:40; Admin Dose 10 MLS/HR; Start 07/19/17 at 17 :30 Hydralazine HCl (Apresoline) 10 mg Q4H PRN IV ELEVATED BLOOD PRESSURE Last administered on 07/27/17 02:46; Admin Dose 10 MG; Start 07/22/17 at 15:30 Nystatin (Nystatin Susp) 5 ml BID PO Last administered on 07/27/17 09:41; Admin Dose 5 ML; Start 07/23/17 at 14:00 Metoprolol Tartrate (Lopressor) 50 mg BID PO Last administered on 07/27/17 09 :38; Admin Dose 50 MG; Start 07/25/17 at 21:00 Amlodipine Besylate 2.5 mg 2.5 mg DAILY PO Last administered on 07/27/17 09: 38; Admin Dose 2.5 MG; Start 07/25/17 at 11:00 Sodium Chloride (1/2 NS) 1,000 ml @ 50 mls/hr Q20H IV Last administered on 07:01; Admin Dose 50 MLS/HR; Start 07/26/17 at 10:30 Clonidine (Catapres) 0.1 mg Q6H PRN PO SBP >160 Last administered on 11:10; Admin Dose 0.1 MG; Start 07/26/17 at 10:30 Valsartan (Diovan) 160 mg DAILY PO ; Start 07/28/17 at 09:00 Assessment/Plan Chief Complaint/Hosp Course 76 yo female with hx of dementia, CAD s/p CABG admitted with fevers/ leukocytosis unclear source improving on abx- Ceftriaxone, Vancomycin, unable to tolerate LP x2. CTH unrevealing for acute process. Recommend: MRI Brain w/o contrast : no acute process, diffuse atrophy unable to tolerate LP due to agitation attempted x2 WNV IgM elevated in serum, WBC is improving suspect underlying delirium superimposed with dementia Problems: TARA HARRINGTON MD Jul 27, 2017 13:16
[2017-07-27] MEDS: DONEPEZIL 10 MG TAB PO SCH ×2 (13:55→13:56)
--- NOTE | 2017-07-27 16:34 | CONS ---
Date/Time of Note Date/Time of Note DATE: 07/27/17 TIME: 16:30 Consultation Date/Type/Reason Admit Date/Time Jul 18, 2017 at 10:11 Initial Consult Date SUBJECTIVE: 76 yo female with hx of dementia, CAD s/p CABG admitted with fevers /leukocytosis unclear source improving on abx- No acute changes. The patient is awake, alert. Denies fevers. VS: 164/70 P:61 R:18 T:98.6 SO2:96% LABS: reviewed. stable. WBC-9.6 ANTIMICROBIALS: None at this time. D/C on 07/25 MICROBIOLOGY: Blood cultures and urine cultures since admission negative. Brain MRI IMPRESSION: 07/24/17 1. No acute intracranial hemorrhage, infarction or mass. 2. Mild to moderate nonspecific white matter signal abnormality which may represent chronic small vessel ischemic changes. 3. Mild to moderate generalized cerebral and mild cerebellar volume loss. PHYSICAL EXAMINATION: GENERAL: This is a fragile, elderly woman who is lethargic, in no distress. HEENT: Head atraumatic, normocephalic. Sclerae anicteric. Buccal mucosa dry. NECK: Supple, trachea midline. CHEST: Rise symmetrical. Breath sounds diminished to bases. HEART: S1, S2. ABDOMEN: Soft, bowel tones present. EXTREMITIES: Without cyanosis. ASSESSMENT: 1. Sepsis with fevers, leukocytosis and acute encephalopathy on admission. 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 History of coronary artery bypass graft and valve replacement. 4. Alzheimer dementia. 5. History of cervical fusion, no evidence of infectious process per spinal CT. Plan: Remains unchanged. Off of antbx., Continue aspiration precautions, f/u neurology rec-s. Type of Consultation: ID Referring Provider: RUSSEL HOLDER Exam/Review of Systems Vital Signs Vitals Vital Signs Date Time Temp Pulse Resp B/P Pulse Ox O2 Delivery O2 Flow Rate FiO2 07/27/17 16:08 98.6 61 18 164/70 96 07/27/17 16:01 2.0 07/27/17 08:00 Nasal Cannula Intake and Output 07/26/17 07/26/17 07/27/17 15:00 23:00 07:00 Intake Total 200 ml 750 ml Output Total 800 ml 750 ml Balance -600 ml 0 ml Results Result Diagram: 07/27/17 0607 07/27/17 0607 Results 24 hrs Laboratory Tests Test 07/27/17 06:07 White Blood Count 9.6 Red Blood Count 3.57 L Hemoglobin 10.8 L Hematocrit 32.6 L Mean Corpuscular Volume 91.3 Mean Corpuscular Hemoglobin 30.3 Mean Corpuscular Hemoglobin Concent 33.1 Red Cell Distribution Width 14.7 H Platelet Count 141 Mean Platelet Volume 12.9 H Neutrophils % 76.9 Lymphocytes % 10.8 L Monocytes % 7.8 Eosinophils % 2.6 Basophils % 0.3 Nucleated Red Blood Cells % 0.0 Neutrophils # 7.4 Lymphocytes # 1.0 Monocytes # 0.8 Eosinophils # 0.3 Basophils # 0.0 Nucleated Red Blood Cells # 0.0 Sodium Level 137 Potassium Level 3.4 L Chloride Level 104 Carbon Dioxide Level 29 Anion Gap 7 L Blood Urea Nitrogen 9 Creatinine 0.56 Glucose Level 92 Calcium Level 8.2 L Medications Medications Current Medications Donepezil HCl (Aricept) 10 mg DAILY PO Last administered on 07/26/17 09:13; Admin Dose 10 MG; Start 07/17/17 at 09:00 Escitalopram Oxalate (Lexapro) 10 mg DAILY PO Last administered on 07/27/17 09:40; Admin Dose 10 MG; Start 07/17/17 at 09:00 Atorvastatin Calcium (Lipitor) 10 mg DAILY@21 PO Last administered on 20:50; Admin Dose 10 MG; Start 07/16/17 at 21:00 Acetaminophen (Tylenol Tab) 650 mg Q6H PRN PO PAIN LEVEL 1-3 OR FEVER Last administered on 07/19/17 16:19; Admin Dose 650 MG; Start 07/16/17 at 16:30 Acetaminophen/ Hydrocodone Bitart ([place] (5/325)) 1 tab Q6H PRN PO MODERATE PAIN LEVEL 4-6 Last administered on 07/16/17 22:39; Admin Dose 1 TAB; Start at 16:30 Acetaminophen (Tylenol Supp) 650 mg Q6H PRN [place] elevated temp Last administered on 07/17/17 17:56; Admin Dose 650 MG; Start 07/17/17 at 17:30 Metoprolol Tartrate 5 mg 5 mg Q5M PRN IV HR>120 Last administered on 07/19/17 16:26; Admin Dose 5 MG; Start 07/19/17 at 16:30 Diltiazem HCl (Cardizem-D5W 125 Mg/125 ml Drip) 125 ml @ 5 mls/hr TITRATE IV Last administered on 07/20/17 06:40; Admin Dose 10 MLS/HR; Start 07/19/17 at 17 :30 Hydralazine HCl (Apresoline) 10 mg Q4H PRN IV ELEVATED BLOOD PRESSURE Last administered on 07/27/17 02:46; Admin Dose 10 MG; Start 07/22/17 at 15:30 Nystatin (Nystatin Susp) 5 ml BID PO Last administered on 07/27/17 09:41; Admin Dose 5 ML; Start 07/23/17 at 14:00 Metoprolol Tartrate (Lopressor) 50 mg BID PO Last administered on 07/27/17 09 :38; Admin Dose 50 MG; Start 07/25/17 at 21:00 Amlodipine Besylate 2.5 mg 2.5 mg DAILY PO Last administered on 07/27/17 09: 38; Admin Dose 2.5 MG; Start 07/25/17 at 11:00 Sodium Chloride (1/2 NS) 1,000 ml @ 50 mls/hr Q20H IV Last administered on 07:01; Admin Dose 50 MLS/HR; Start 07/26/17 at 10:30 Clonidine (Catapres) 0.1 mg Q6H PRN PO SBP >160 Last administered on 11:10; Admin Dose 0.1 MG; Start 07/26/17 at 10:30 Valsartan (Diovan) 160 mg DAILY PO ; Start 07/28/17 at 09:00 HERSON CALDERON Jul 27, 2017 16:34
--- NOTE | 2017-07-27 17:51 | CONS ---
Date/Time of Note Date/Time of Note DATE: 07/27/17 TIME: 17:49 Consult Date/Type/Reason Admit Date/Time Jul 18, 2017 at 10:11 Type of Consultation: card Ordering Provider: RUSSEL HOLDER Subjective card f/u note: S: Discussed with the staff and rhythm strip was reviewed. Patient remains in normal sinus rhythm. No atrial fibrillation noted overnight she intermittently has been in sinus elisa but no long pauses. No reports of chest pain or pressure or palpitation. O: General: no acute distress HEENT: NC/AT. pupils are equal. round. NECK: NO JVD. no stridor. CV: RRR. systolic murmur; no gallop or rubs. PULM: no wheezing or rhonchi. GI: SOFT, NT, ND, no rebound or guarding Extremity: trace B/L LE edema. no clubbing. neuro: awake and alert, OX1 at least . Psych: calm rectal: deferred echo reviewed: 1. Normal left ventricular systolic function. Normal left ventricular cavity size. Mild concentric left ventricular hypertrophy. Ejection fraction is visually estimated at 65 %. Abnormal Diastolic Function. 2. There is mild enlargement of left atrium. 3. Mild mitral leaflet calcification. Mild mitral annular calcification. Mild mitral valve regurgitation. 4. Aortic valve not well visualized. Aortic Valve Bio Prosthesis. Aortic valve Max velocity 3.07 m/sec. Max PG 38.00 mmHg. Mean PG 20.00 mmHg. 5. Normal appearance of the tricuspid valve. Estimated peak PA systolic pressure 53 mmHg. There is mild tricuspid regurgitation. Objective Vital Signs Date Time Temp Pulse Resp B/P Pulse Ox O2 Delivery O2 Flow Rate FiO2 07/27/17 16:42 64 07/27/17 16:08 98.6 18 164/70 96 07/27/17 16:01 2.0 07/27/17 08:00 Nasal Cannula Intake and Output 07/26/17 07/26/17 07/27/17 15:00 23:00 07:00 Intake Total 200 ml 750 ml Output Total 800 ml 750 ml Balance -600 ml 0 ml Results/Medications Result Diagram: 07/27/17 0607 07/27/17 0607 Results 24 hrs Laboratory Tests Test 07/27/17 06:07 White Blood Count 9.6 Red Blood Count 3.57 L Hemoglobin 10.8 L Hematocrit 32.6 L Mean Corpuscular Volume 91.3 Mean Corpuscular Hemoglobin 30.3 Mean Corpuscular Hemoglobin Concent 33.1 Red Cell Distribution Width 14.7 H Platelet Count 141 Mean Platelet Volume 12.9 H Neutrophils % 76.9 Lymphocytes % 10.8 L Monocytes % 7.8 Eosinophils % 2.6 Basophils % 0.3 Nucleated Red Blood Cells % 0.0 Neutrophils # 7.4 Lymphocytes # 1.0 Monocytes # 0.8 Eosinophils # 0.3 Basophils # 0.0 Nucleated Red Blood Cells # 0.0 Sodium Level 137 Potassium Level 3.4 L Chloride Level 104 Carbon Dioxide Level 29 Anion Gap 7 L Blood Urea Nitrogen 9 Creatinine 0.56 Glucose Level 92 Calcium Level 8.2 L Medications Current Medications Donepezil HCl (Aricept) 10 mg DAILY PO Last administered on 07/26/17 09:13; Admin Dose 10 MG; Start 07/17/17 at 09:00 Escitalopram Oxalate (Lexapro) 10 mg DAILY PO Last administered on 07/27/17 09:40; Admin Dose 10 MG; Start 07/17/17 at 09:00 Atorvastatin Calcium (Lipitor) 10 mg DAILY@21 PO Last administered on 20:50; Admin Dose 10 MG; Start 07/16/17 at 21:00 Acetaminophen (Tylenol Tab) 650 mg Q6H PRN PO PAIN LEVEL 1-3 OR FEVER Last administered on 07/19/17 16:19; Admin Dose 650 MG; Start 07/16/17 at 16:30 Acetaminophen/ Hydrocodone Bitart ([place] (5/325)) 1 tab Q6H PRN PO MODERATE PAIN LEVEL 4-6 Last administered on 07/16/17 22:39; Admin Dose 1 TAB; Start at 16:30 Acetaminophen (Tylenol Supp) 650 mg Q6H PRN [place] elevated temp Last administered on 07/17/17 17:56; Admin Dose 650 MG; Start 07/17/17 at 17:30 Metoprolol Tartrate 5 mg 5 mg Q5M PRN IV HR>120 Last administered on 07/19/17 16:26; Admin Dose 5 MG; Start 07/19/17 at 16:30 Diltiazem HCl (Cardizem-D5W 125 Mg/125 ml Drip) 125 ml @ 5 mls/hr TITRATE IV Last administered on 07/20/17 06:40; Admin Dose 10 MLS/HR; Start 07/19/17 at 17 :30 Hydralazine HCl (Apresoline) 10 mg Q4H PRN IV ELEVATED BLOOD PRESSURE Last administered on 07/27/17 02:46; Admin Dose 10 MG; Start 07/22/17 at 15:30 Nystatin (Nystatin Susp) 5 ml BID PO Last administered on 07/27/17 09:41; Admin Dose 5 ML; Start 07/23/17 at 14:00 Metoprolol Tartrate (Lopressor) 50 mg BID PO Last administered on 07/27/17 09 :38; Admin Dose 50 MG; Start 07/25/17 at 21:00 Amlodipine Besylate 2.5 mg 2.5 mg DAILY PO Last administered on 07/27/17 09: 38; Admin Dose 2.5 MG; Start 07/25/17 at 11:00 Sodium Chloride (1/2 NS) 1,000 ml @ 50 mls/hr Q20H IV Last administered on 07:01; Admin Dose 50 MLS/HR; Start 07/26/17 at 10:30 Clonidine (Catapres) 0.1 mg Q6H PRN PO SBP >160 Last administered on 11:10; Admin Dose 0.1 MG; Start 07/26/17 at 10:30 Valsartan (Diovan) 160 mg DAILY PO ; Start 07/28/17 at 09:00 Assessment/Plan Chief Complaint/Hosp Course 1. Sepsis infection, etiology unclear. An LP could not be done unfortunately. Antibiotic as per ID recommendation. 2. Paroxysmal atrial fibrillation with rapid ventricular response, currently back to sinus rhythm. 3. History of hypertension. 4. History of aortic valve replacement with bioprosthetic aortic valve. 5. Memory impairment and dementia. 6. Encephalopathy? WNV f/u ID rec 7. Hypertension. 8. Tachybrady. 9. hypo K : RECOMMENDATIONS: Antibiotic is managed as per ID recommendation. I will cont the patient on metoprolol as tolerated. electrolytes to be corrected as needed. will cont ARB Thank you for this referral. We will continue to follow along with you on as needed basis over the weekend. LEO ARELLANO MD [facility] Problems: LEO ARELLANO MD Jul 27, 2017 17:51
--- NOTE | 2017-07-27 18:51 | PN ---
Date/Time of Note Date/Time of Note DATE: 07/27/17 TIME: 18:48 Assessment/Plan VTE Prophylaxis VTE Prophylaxis Intervention: SCD's Lines/Catheters IV Catheter Type (from Nrsg): Peripheral IV Urinary Cath still in place: Yes Reason Cath still needed: other (indicate) (will dc) Assessment/Plan Assessment/Plan 76 yo F with pmhx dementia, HTN, HL, depression here with fever and rigors concerning for possible infectious source, possibly 2/2 meningitis from WNV. Hospitalization notable for AFib with RVR, resolved with bb's. BP still elevated -empiric antibacterials stopped -add ccb to BP regimen, streamline ARB dosing -CM helping with DC planning Subjective 24 Hr Interval Summary Free Text/Dictation Pt comfortable. No recent AFib Exam/Review of Systems Vital Signs Vitals Vital Signs Date Time Temp Pulse Resp B/P Pulse Ox O2 Delivery O2 Flow Rate FiO2 07/27/17 16:42 64 07/27/17 16:08 98.6 18 164/70 96 07/27/17 16:01 2.0 07/27/17 08:00 Nasal Cannula Intake and Output 07/26/17 07/26/17 07/27/17 15:00 23:00 07:00 Intake Total 200 ml 750 ml Output Total 800 ml 750 ml Balance -600 ml 0 ml Exam nad, knew she was in a hospital but did not know the year or the president no mrg lungs clear abd soft no rashes Results Result Diagram: 07/27/17 0607 07/27/17 0607 Results 24 hrs Laboratory Tests Test 07/27/17 06:07 White Blood Count 9.6 Red Blood Count 3.57 L Hemoglobin 10.8 L Hematocrit 32.6 L Mean Corpuscular Volume 91.3 Mean Corpuscular Hemoglobin 30.3 Mean Corpuscular Hemoglobin Concent 33.1 Red Cell Distribution Width 14.7 H Platelet Count 141 Mean Platelet Volume 12.9 H Neutrophils % 76.9 Lymphocytes % 10.8 L Monocytes % 7.8 Eosinophils % 2.6 Basophils % 0.3 Nucleated Red Blood Cells % 0.0 Neutrophils # 7.4 Lymphocytes # 1.0 Monocytes # 0.8 Eosinophils # 0.3 Basophils # 0.0 Nucleated Red Blood Cells # 0.0 Sodium Level 137 Potassium Level 3.4 L Chloride Level 104 Carbon Dioxide Level 29 Anion Gap 7 L Blood Urea Nitrogen 9 Creatinine 0.56 Glucose Level 92 Calcium Level 8.2 L Medications Medications Current Medications Donepezil HCl (Aricept) 10 mg DAILY PO Last administered on 07/26/17 09:13; Admin Dose 10 MG; Start 07/17/17 at 09:00 Escitalopram Oxalate (Lexapro) 10 mg DAILY PO Last administered on 07/27/17 09:40; Admin Dose 10 MG; Start 07/17/17 at 09:00 Atorvastatin Calcium (Lipitor) 10 mg DAILY@21 PO Last administered on 20:50; Admin Dose 10 MG; Start 07/16/17 at 21:00 Acetaminophen (Tylenol Tab) 650 mg Q6H PRN PO PAIN LEVEL 1-3 OR FEVER Last administered on 07/19/17 16:19; Admin Dose 650 MG; Start 07/16/17 at 16:30 Acetaminophen/ Hydrocodone Bitart ([place] (5/325)) 1 tab Q6H PRN PO MODERATE PAIN LEVEL 4-6 Last administered on 07/16/17 22:39; Admin Dose 1 TAB; Start at 16:30 Acetaminophen (Tylenol Supp) 650 mg Q6H PRN [place] elevated temp Last administered on 07/17/17 17:56; Admin Dose 650 MG; Start 07/17/17 at 17:30 Metoprolol Tartrate 5 mg 5 mg Q5M PRN IV HR>120 Last administered on 07/19/17 16:26; Admin Dose 5 MG; Start 07/19/17 at 16:30 Diltiazem HCl (Cardizem-D5W 125 Mg/125 ml Drip) 125 ml @ 5 mls/hr TITRATE IV Last administered on 07/20/17 06:40; Admin Dose 10 MLS/HR; Start 07/19/17 at 17 :30 Hydralazine HCl (Apresoline) 10 mg Q4H PRN IV ELEVATED BLOOD PRESSURE Last administered on 07/27/17 02:46; Admin Dose 10 MG; Start 07/22/17 at 15:30 Nystatin (Nystatin Susp) 5 ml BID PO Last administered on 07/27/17 09:41; Admin Dose 5 ML; Start 07/23/17 at 14:00 Metoprolol Tartrate (Lopressor) 50 mg BID PO Last administered on 07/27/17 09 :38; Admin Dose 50 MG; Start 07/25/17 at 21:00 Amlodipine Besylate (Norvasc) 2.5 mg DAILY PO Last administered on 07/27/17 09:38; Admin Dose 2.5 MG; Start 07/25/17 at 11:00 Clonidine (Catapres) 0.1 mg Q6H PRN PO SBP >160 Last administered on 11:10; Admin Dose 0.1 MG; Start 07/26/17 at 10:30 Valsartan (Diovan) 160 mg DAILY PO ; Start 07/28/17 at 09:00 GAYE REEVES MD Jul 27, 2017 18:51
[2017-07-27] MEDS ORDERED: NIFEdipine (XL) 30 MG TAB PO SCH (21:00)
[2017-07-27] MEDS: ATORVASTATIN 10 MG TAB PO SCH (21:07)
[2017-07-28] VITALS (17 sets, daily range): BP systolic 114–204; BP diastolic 43–84; PULSE 59–108; RESP 16–18
[2017-07-28] MEDS: hydrALAzine 20 MG INJ IV PRN ×3 (06:36→16:03)
[2017-07-28] MEDS: VALSARTAN 160 MG TAB PO SCH (08:53)
[2017-07-28] MEDS: ESCITALOPRAM 10 MG TAB PO SCH (08:53)
[2017-07-28] MEDS: DONEPEZIL 10 MG TAB PO SCH (08:53)
[2017-07-28] MEDS: AMLODIPINE 10 MG TAB PO SCH (08:54)
[2017-07-28] MEDS: METOPROLOL 50 MG TAB PO SCH ×2 (08:54→20:58)
[2017-07-28] MEDS: NYSTATIN SUSP 5 ML CUP PO SCH (08:54)
[2017-07-28] MEDS: BALSAM PERU/CASTOR OIL 60 GM TUBE TOP SCH (08:56)
--- NOTE | 2017-07-28 11:28 | CONS ---
Date/Time of Note Date/Time of Note DATE: 07/28/17 TIME: 11:27 Consult Date/Type/Reason Admit Date/Time Jul 18, 2017 at 10:11 Type of Consultation: card Ordering Provider: RUSSEL HOLDER Subjective card f/u note: S: Discussed with the staff and rhythm strip was reviewed. Patient remains in normal sinus rhythm. No atrial fibrillation noted overnight she intermittently has been in sinus elisa but no long pauses. No reports of chest pain or pressure or palpitation. d/w caregiver. O: General: no acute distress HEENT: NC/AT. pupils are equal. round. NECK: NO JVD. no stridor. CV: RRR. systolic murmur; no gallop or rubs. PULM: no wheezing or rhonchi. GI: SOFT, NT, ND, no rebound or guarding Extremity: trace B/L LE edema. no clubbing. neuro: awake and alert, OX1 . Psych: calm rectal: deferred echo reviewed: 1. Normal left ventricular systolic function. Normal left ventricular cavity size. Mild concentric left ventricular hypertrophy. Ejection fraction is visually estimated at 65 %. Abnormal Diastolic Function. 2. There is mild enlargement of left atrium. 3. Mild mitral leaflet calcification. Mild mitral annular calcification. Mild mitral valve regurgitation. 4. Aortic valve not well visualized. Aortic Valve Bio Prosthesis. Aortic valve Max velocity 3.07 m/sec. Max PG 38.00 mmHg. Mean PG 20.00 mmHg. 5. Normal appearance of the tricuspid valve. Estimated peak PA systolic pressure 53 mmHg. There is mild tricuspid regurgitation. Objective Vital Signs Date Time Temp Pulse Resp B/P Pulse Ox O2 Delivery O2 Flow Rate FiO2 07/28/17 11:04 66 174/76 07/28/17 08:10 97.9 18 97 07/28/17 00:00 Nasal Cannula 3.0 Intake and Output 07/27/17 07/27/17 07/28/17 15:00 23:00 07:00 Intake Total 900 ml 200 ml Output Total 700 ml 2100 ml Balance 200 ml -1900 ml Results/Medications Result Diagram: 07/27/17 0607 07/27/17 0607 Medications Current Medications Donepezil HCl (Aricept) 10 mg DAILY PO Last administered on 07/28/17t 08:53; Admin Dose 10 MG; Start 07/17/17 at 09:00 Escitalopram Oxalate (Lexapro) 10 mg DAILY PO Last administered on 07/28/17 08:53; Admin Dose 10 MG; Start 07/17/17 at 09:00 Atorvastatin Calcium (Lipitor) 10 mg DAILY@21 PO Last administered on 21:07; Admin Dose 10 MG; Start 07/16/17 at 21:00 Acetaminophen (Tylenol Tab) 650 mg Q6H PRN PO PAIN LEVEL 1-3 OR FEVER Last administered on 07/19/17 16:19; Admin Dose 650 MG; Start 07/16/17 at 16:30 Acetaminophen/ Hydrocodone Bitart ([place] (5/325)) 1 tab Q6H PRN PO MODERATE PAIN LEVEL 4-6 Last administered on 07/16/17 22:39; Admin Dose 1 TAB; Start at 16:30 Acetaminophen (Tylenol Supp) 650 mg Q6H PRN [place] elevated temp Last administered on 07/17/17 17:56; Admin Dose 650 MG; Start 07/17/17 at 17:30 Metoprolol Tartrate (Lopressor) 5 mg Q5M PRN IV HR>120 Last administered on 16:26; Admin Dose 5 MG; Start 07/19/17 at 16:30 Hydralazine HCl (Apresoline) 10 mg Q4H PRN IV ELEVATED BLOOD PRESSURE Last administered on 07/28/17 11:06; Admin Dose 10 MG; Start 07/22/17 at 15:30 Nystatin (Nystatin Susp) 5 ml BID PO Last administered on 07/28/17 08:54; Admin Dose 5 ML; Start 07/23/17 at 14:00 Metoprolol Tartrate (Lopressor) 50 mg BID PO Last administered on 07/28/17 08 :54; Admin Dose 50 MG; Start 07/25/17 at 21:00 Clonidine (Catapres) 0.1 mg Q6H PRN PO SBP >160 Last administered on 06:37; Admin Dose 0.1 MG; Start 07/26/17 at 10:30 Valsartan (Diovan) 160 mg DAILY PO Last administered on 07/28/17 08:53; Admin Dose 160 MG; Start 07/28/17 at 09:00 Amlodipine Besylate (Norvasc) 10 mg DAILY PO Last administered on 07/28/17t 08 :54; Admin Dose 10 MG; Start 07/28/17 at 09:00 Assessment/Plan Chief Complaint/Hosp Course 1. Sepsis infection, etiology unclear. An LP could not be done unfortunately. Antibiotic as per ID recommendation. 2. Paroxysmal atrial fibrillation with rapid ventricular response, currently back to sinus rhythm. 3. History of hypertension. 4. History of aortic valve replacement with bioprosthetic aortic valve. 5. Memory impairment and dementia. 6. Encephalopathy? WNV f/u ID rec 7. Hypertension. 8. Tachybrady. 9. hypo K : RECOMMENDATIONS: Antibiotic is managed as per ID recommendation. I will cont the patient on metoprolol as tolerated. electrolytes to be corrected as needed. will cont ARB norvasc was added as well will add aldactone as well. Thank you for this referral. We will continue to follow along with you on as needed basis over the weekend. LEO ARELLANO MD [facility] Problems: LEO ARELLANO MD Jul 28, 2017 11:28
[2017-07-28] MEDS: SPIRONOLACTONE 25 MG TAB PO SCH (12:27)
[2017-07-28] MEDS ORDERED: POTASSIUM CHLORIDE (SR) 20 MEQ TAB PO STA (16:48)
--- NOTE | 2017-07-28 19:27 | PN ---
Date/Time of Note Date/Time of Note DATE: 07/28/17 TIME: 19:26 Assessment/Plan VTE Prophylaxis VTE Prophylaxis Intervention: SCD's Lines/Catheters IV Catheter Type (from Nrsg): [place] Urinary Cath still in place: No Assessment/Plan Assessment/Plan 76 yo F with pmhx dementia, HTN, HL, depression here with fever and rigors concerning for possible infectious source, possibly 2/2 meningitis from WNV. Hospitalization notable for AFib with RVR, resolved with bb's. BP slight better -empiric antibacterials stopped -cont current BP regimen, aldactone added by cards -CM helping with DC planning Subjective 24 Hr Interval Summary Free Text/Dictation No complaints Exam/Review of Systems Vital Signs Vitals Vital Signs Date Time Temp Pulse Resp B/P Pulse Ox O2 Delivery O2 Flow Rate FiO2 07/28/17 17:00 78 149/61 07/28/17 15:44 98.0 18 94 07/28/17 15:29 2.0 07/28/17 14:33 Nasal Cannula Intake and Output 07/27/17 07/27/17 07/28/17 15:00 23:00 07:00 Intake Total 900 ml 200 ml Output Total 700 ml 2100 ml Balance 200 ml -1900 ml Exam nad no mrg lungs clear abd soft no rashes Results Result Diagram: 07/27/17 0607 07/27/17 0607 Medications Medications Current Medications Donepezil HCl (Aricept) 10 mg DAILY PO Last administered on 07/28/17 08:53; Admin Dose 10 MG; Start 07/17/17 at 09:00 Escitalopram Oxalate (Lexapro) 10 mg DAILY PO Last administered on 07/28/17 08:53; Admin Dose 10 MG; Start 07/17/17 at 09:00 Atorvastatin Calcium (Lipitor) 10 mg DAILY@21 PO Last administered on 21:07; Admin Dose 10 MG; Start 07/16/17 at 21:00 Acetaminophen (Tylenol Tab) 650 mg Q6H PRN PO PAIN LEVEL 1-3 OR FEVER Last administered on 07/19/17 16:19; Admin Dose 650 MG; Start 07/16/17 at 16:30 Acetaminophen/ Hydrocodone Bitart ([place] (5/325)) 1 tab Q6H PRN PO MODERATE PAIN LEVEL 4-6 Last administered on 07/16/17 22:39; Admin Dose 1 TAB; Start at 16:30 Acetaminophen (Tylenol Supp) 650 mg Q6H PRN [place] elevated temp Last administered on 07/17/17 17:56; Admin Dose 650 MG; Start 07/17/17 at 17:30 Metoprolol Tartrate (Lopressor) 5 mg Q5M PRN IV HR>120 Last administered on 16:26; Admin Dose 5 MG; Start 07/19/17 at 16:30 Metoprolol Tartrate (Lopressor) 50 mg BID PO Last administered on 07/28/17 08 :54; Admin Dose 50 MG; Start 07/25/17 at 21:00 Clonidine (Catapres) 0.1 mg Q6H PRN PO SBP >160 Last administered on 12:27; Admin Dose 0.1 MG; Start 07/26/17 at 10:30 Valsartan (Diovan) 160 mg DAILY PO Last administered on 07/28/17 08:53; Admin Dose 160 MG; Start 07/28/17 at 09:00 Amlodipine Besylate (Norvasc) 10 mg DAILY PO Last administered on 07/28/17 08 :54; Admin Dose 10 MG; Start 07/28/17 at 09:00 Spironolactone (Aldactone) 25 mg DAILY PO Last administered on 07/28/17 12:27 ; Admin Dose 25 MG; Start 07/28/17 at 12:00 GAYE REEVES MD Jul 28, 2017 19:27
[2017-07-28] MEDS: ATORVASTATIN 10 MG TAB PO SCH (20:58)
[2017-07-29] VITALS (10 sets, daily range): BP systolic 138–170; BP diastolic 60–77; PULSE 57–65; RESP 17–18
[2017-07-29] MEDS: DONEPEZIL 10 MG TAB PO SCH (08:34)
[2017-07-29] MEDS: VALSARTAN 160 MG TAB PO SCH (08:34)
[2017-07-29] MEDS: BALSAM PERU/CASTOR OIL 60 GM TUBE TOP SCH (08:35)
[2017-07-29] MEDS: SPIRONOLACTONE 25 MG TAB PO SCH (08:35)
[2017-07-29] MEDS: AMLODIPINE 10 MG TAB PO SCH (08:35)
[2017-07-29] MEDS: ESCITALOPRAM 10 MG TAB PO SCH (08:35)
[2017-07-29] MEDS: METOPROLOL 50 MG TAB PO SCH (08:35)
[2017-07-29 09:15] LABS: ALBUMIN 2.7 g/dl (3.3-4.9); BILIRUBIN,INDIRECT 0.8 mg/dl (0-1.1); BILIRUBIN,TOTAL 0.8 mg/dl (0.2-1.3); CALCIUM 8.2 mg/dl (8.4-10.2); CREATININE 0.56 mg/dl (0.44-1.00); MAGNESIUM 1.7 mg/dl (1.7-2.5); POTASSIUM 3.5 mmol/L (3.5-5.1); TOTAL PROTEIN 5.4 g/dl (6.1-8.1)
--- NOTE | 2017-07-29 09:25 | CONS ---
Date/Time of Note Date/Time of Note DATE: 07/29/17 TIME: 09:23 Consult Date/Type/Reason Admit Date/Time Jul 18, 2017 at 10:11 Type of Consultation: card Ordering Provider: RUSSEL HOLDER Subjective CARDIOLOGY f/u note: S: Discussed with the staff and rhythm strip was reviewed. Patient remains in normal sinus rhythm. No atrial fibrillation noted overnight she intermittently has been in sinus elisa but no long pauses seen again No reports of chest pain or pressure or palpitation. O: General: no acute distress HEENT: NC/AT. pupils are equal. round. NECK: NO JVD. no stridor. CV: RRR. systolic murmur; no gallop or rubs. PULM: no wheezing or rhonchi. GI: SOFT, NT, ND, no rebound or guarding Extremity: trace B/L LE edema. no clubbing. neuro: awake and alert, OX1 . Psych: calm rectal: deferred echo reviewed: 1. Normal left ventricular systolic function. Normal left ventricular cavity size. Mild concentric left ventricular hypertrophy. Ejection fraction is visually estimated at 65 %. Abnormal Diastolic Function. 2. There is mild enlargement of left atrium. 3. Mild mitral leaflet calcification. Mild mitral annular calcification. Mild mitral valve regurgitation. 4. Aortic valve not well visualized. Aortic Valve Bio Prosthesis. Aortic valve Max velocity 3.07 m/sec. Max PG 38.00 mmHg. Mean PG 20.00 mmHg. 5. Normal appearance of the tricuspid valve. Estimated peak PA systolic pressure 53 mmHg. There is mild tricuspid regurgitation. Objective Vital Signs Date Time Temp Pulse Resp B/P Pulse Ox O2 Delivery O2 Flow Rate FiO2 07/29/17 08:01 98.9 65 18 169/77 96 07/29/17 04:41 Nasal Cannula 3.0 Intake and Output 07/28/17 07/28/17 07/29/17 15:00 23:00 07:00 Intake Total 640 ml 400 ml Output Total 500 ml Balance -500 ml 640 ml 400 ml Results/Medications Result Diagram: 07/27/17 0607 07/29/17 0751 Results 24 hrs Laboratory Tests Test 07/29/17 07:51 Sodium Level 138 Potassium Level 3.5 Chloride Level 101 Carbon Dioxide Level 31 Anion Gap 10 Blood Urea Nitrogen 8 Creatinine 0.56 Glucose Level 98 Calcium Level 8.2 L Magnesium Level 1.7 Total Bilirubin 0.8 Direct Bilirubin 0.00 Indirect Bilirubin 0.8 Aspartate Amino Transf (AST/SGOT) 18 Alanine Aminotransferase (ALT/SGPT) 27 Alkaline Phosphatase 75 Total Protein 5.4 L Albumin 2.7 L Globulin 2.70 Albumin/Globulin Ratio 1.00 Medications Current Medications Donepezil HCl (Aricept) 10 mg DAILY PO Last administered on 07/29/17 08:34; Admin Dose 10 MG; Start 07/17/17 at 09:00 Escitalopram Oxalate (Lexapro) 10 mg DAILY PO Last administered on 07/29/17 08:35; Admin Dose 10 MG; Start 07/17/17 at 09:00 Atorvastatin Calcium (Lipitor) 10 mg DAILY@21 PO Last administered on 20:58; Admin Dose 10 MG; Start 07/16/17 at 21:00 Acetaminophen (Tylenol Tab) 650 mg Q6H PRN PO PAIN LEVEL 1-3 OR FEVER Last administered on 07/19/17 16:19; Admin Dose 650 MG; Start 07/16/17 at 16:30 Acetaminophen/ Hydrocodone Bitart (Argyle (5/325)) 1 tab Q6H PRN PO MODERATE PAIN LEVEL 4-6 Last administered on 07/16/17 22:39; Admin Dose 1 TAB; Start at 16:30 Acetaminophen (Tylenol Supp) 650 mg Q6H PRN MD elevated temp Last administered on 07/17/17 17:56; Admin Dose 650 MG; Start 07/17/17 at 17:30 Metoprolol Tartrate (Lopressor) 5 mg Q5M PRN IV HR>120 Last administered on 16:26; Admin Dose 5 MG; Start 07/19/17 at 16:30 Metoprolol Tartrate (Lopressor) 50 mg BID PO Last administered on 07/29/17 08 :35; Admin Dose 50 MG; Start 07/25/17 at 21:00 Clonidine (Catapres) 0.1 mg Q6H PRN PO SBP >160 Last administered on 12:27; Admin Dose 0.1 MG; Start 07/26/17 at 10:30 Valsartan (Diovan) 160 mg DAILY PO Last administered on 10/18/17at 08:34; Admin Dose 160 MG; Start 07/28/17 at 09:00 Amlodipine Besylate (Norvasc) 10 mg DAILY PO Last administered on 07/29/17 08 :35; Admin Dose 10 MG; Start 07/28/17 at 09:00 Spironolactone (Aldactone) 25 mg DAILY PO Last administered on 07/29/17t 08:35 ; Admin Dose 25 MG; Start 07/28/17 at 12:00 Assessment/Plan Chief Complaint/Hosp Course 1. Sepsis/ infection, Antibiotic as per ID recommendation. 2. Paroxysmal atrial fibrillation with rapid ventricular response, currently back to sinus rhythm. 3. History of hypertension. 4. History of aortic valve replacement with bioprosthetic aortic valve. 5. ?Memory impairment and dementia 6. Encephalopathy? WNV f/u ID rec 7. Hypertension. 8. Tachybrady. 9. hypo K/ hypo Mag : RECOMMENDATIONS: Antibiotic is managed as per ID recommendation. I will cont the patient on metoprolol as tolerated. electrolytes to be corrected as needed. will replace Mg today will cont ARB, norvasc and aldactone Thank you for this referral. We will continue to follow along with you . LEO ARELLANO MD [facility] Problems: LEO ARELLANO MD Jul 29, 2017 09:25
[2017-07-29] MEDS ORDERED: MAGNESIUM SULFATE 3 GM in SOD CHLORIDE 0.9% 100 ML IVPB ONE (11:00)
--- NOTE | 2017-07-29 12:47 | DS ---
Date/Time of Note Date/Time of Note DATE: 07/29/17 TIME: 12:35 Discharge Summary Admission/Discharge Info Admit Date/Time Jul 18, 2017 at 10:11 Discharge Date/Time Discharge Diagnosis sepsis 2/2 [place] virus, paroxysmal atrial fibrillation with rapid ventricular response, dementia (present on admission) Patient Condition: Stable Consults ID, cardiology, neurology Hx of Present Illness CC weakness, fatigue HPI (of note, pt sleeping very soundly at time of my clinical evaluation thus she was unable to participate in clinical interview. unable to obtain pmhx, pshx, soc hx, fam hx, ROS, allergies from patient) 76 yo F with pmhx HTN, HL, depression, dementia brought in for weakness, fatigue. Found to be febrile in the ER. No localization of symptomatology per ER documentation One of pt's caregiver presented this afternoon and was able to provide additional info. Pt at baseline is alert, able to walk and stand unassisted. Yesterday had a headache. She was taken to [place], had CT and urine and blood tests done. Pt and caregiver told all of these were normal and patient was sent home. Today pt was noted to be confused, diffusely weak and fatigued which is why family brought her in. No focal weakness. +L knee swelling. Pt denies headache at this time. Home meds: metoprolol, Livalo, Donepezil, Lexapro Hospital Course 76 yo F with pmhx dementia, HTN, HL, depression here with fever and rigors concerning for possible infectious source, possibly 2/2 meningitis from WNV. Pt started on empiric bacterial meningitis antibiotics at time of admission. LP attempted by IR x 2 but could not be done 2/2 pt's agitation. WNV serologies returned with +IgM, -IgG consistent with acute infection/recent exposure. Pt's mentation slowly improved and abx were stopped. Hospitalization also notable for new onset AFib with RVR. Pt temporarily on dilt drip and converted back to sinus. Home bb increased. BPs remained high so ccb and Aldactone started. Pt quite physically debilitated from prolonged hospitalization thus she is being discharged to a SNF for subacute rehab Pt should get ChemP with PCP or SNF in 1 week, also defer discussion of prospect of anticoagulation for stroke risk reduction given episode of AFib to PCP copy of dc summary faxed to PCP prior to discharge Home Meds Reported Medications Pitavastatin Calcium (Livalo) 2 Mg Tablet, 2 MG PO DAILY, TAB 07/16/17 Metoprolol Tartrate* (Lopressor*) 25 Mg Tab, 25 MG PO BID, TAB 07/16/17 Donepezil* (Donepezil*) 10 Mg Tablet, 10 MG PO DAILY, TAB 07/16/17 Escitalopram Oxalate* (Lexapro*) 10 Mg Tablet, 10 MG PO DAILY, #30 TAB 07/16/17 Follow-up Plan ChemP within 7 days either with PCP or SNF given new BP meds consider ATC discussion with PCP as pt with pAF Primary Care Provider Jona Santiago Time spent on discharge: > 30 minutes Pending Labs Laboratory Tests Test 07/29/17 07:51 Sodium Level 138mmol/L (135-144) Potassium Level 3.5mmol/L (3.5-5.1) Chloride Level 101mmol/L (97-110) Carbon Dioxide Level 31mmol/L (21-31) Anion Gap 10 (8-16) Blood Urea Nitrogen 8mg/dl (7-20) Creatinine 0.56mg/dl (0.44-1.00) Glucose Level 98mg/dl (70-220) Calcium Level 8.2mg/dl (8.4-10.2) Magnesium Level 1.7mg/dl (1.7-2.5) Total Bilirubin 0.8mg/dl (0.2-1.3) Direct Bilirubin 0.00mg/dl (0.00-0.20) Indirect Bilirubin 0.8mg/dl (0-1.1) Aspartate Amino Transf (AST/SGOT) 18IU/L (15-46) Alanine Aminotransferase (ALT/SGPT) 27IU/L (13-69) Alkaline Phosphatase 75IU/L (42-121) Total Protein 5.4g/dl (6.1-8.1) Albumin 2.7g/dl (3.3-4.9) Globulin 2.70g/dl (1.3-3.2) Albumin/Globulin Ratio 1.00 GAYE REEVES MD Jul 29, 2017 12:47
== END 2017-07-29 19:35 | DRG 871 ==
LOC: E/R 11:39 → PP2 14:04 → MS4 18:35 → OBSVTOIN 07-18 10:11
PROVIDERS: ADMIT Internal Medicine; ATTEND Internal Medicine
PROC: 00JU3ZZ Inspection of Spinal Canal, Percutaneous Approach (ICD-10-PCS; principal; 2017-07-18)
DX: A41.89 Other specified sepsis (principal); G92 Toxic encephalopathy; A92.32 West Nile virus infection with other neurologic manifestation; I49.5 Sick sinus syndrome; I48.0 Paroxysmal atrial fibrillation; A87.8 Other viral meningitis; G30.1 Alzheimer's disease with late onset; F02.80 Dementia in other diseases classified elsewhere, unspecified severity, without behavioral disturbance, psychotic disturbance, mood disturbance, and anxiety; Z66 Do not resuscitate; E78.5 Hyperlipidemia, unspecified; I10 Essential (primary) hypertension; F32.9 Major depressive disorder, single episode, unspecified; D64.9 Anemia, unspecified; R33.9 Retention of urine, unspecified; I25.10 Atherosclerotic heart disease of native coronary artery without angina pectoris; E87.6 Hypokalemia; Z98.1 Arthrodesis status; Z95.2 Presence of prosthetic heart valve; Z96.651 Presence of right artificial knee joint; Z95.1 Presence of aortocoronary bypass graft
CPT/HCPCS: 36415; 70450; 70470; 70551; 71010; 72125; 72128; 72131; 73562; 74177; 76700; 80048; 80053; 80202; 81001; 82945; 83605; 83735; 84157; 84443; 84484; 85025; 85610; 85651; 85730; 86140; 86644; 86664; 86703; 86788; 86789; 87040; 87086; 87275; 87276; 87279; 87280; 87400; 87496; 87536; 89051; 90686; 92526; 92610; 93005; 93306; 94664; 97110; 97162; 97530; 99217; G0378; J0290; J0360; J2060; J3370; J3475; J3480; J7030; J7050; Q9967